=== PATIENT | female | born 1960 | race Caucasian/White ===

== ENCOUNTER 2016-12-11 08:24 | Emergency (ER) | payer MEDICAID ==
[~2016-12-11] VITALS: Ht 175.3 cm; Wt 75.0 kg
[~2016-12-11 08:24] MED LIST: BUPR150XL PO; DOLO10TA PO; GABA600T PO; HYDR25TA5 PO; IBUP800T23 PO; LISI-515 PO; LOVA40TA PO; METF1000 PO; ONETTES4; SERO50TA PO; WALKER WHEELS/F1 MIS
[2016-12-11 08:25] VITALS: BP 101/59; PULSE 78; RESP 16; TEMP 98.2; O2SAT 99
[2016-12-11] MEDS ORDERED: CLIN1CAP5 PO (08:56)
[2016-12-11] MEDS ORDERED: IBUP-232 PO (08:56)
--- NOTE | 2016-12-11 08:56 | PD ---
HPI Chief Complaint: Fall Time Seen by Provider: 08:50 Travel History International Travel<30 days: No Contact w/Intl Traveler<30days: No Traveled to known affect area: No History of Present Illness HPI 56-year-old female presents to the emergency Department with complaint of right foot and right ankle pain and swelling after getting off an MRI table on Monday and her ankle giving out and she fell. She denies hitting her head or lost consciousness. Denies neck pain or back pain. Has been ambulatory on the affected extremity with support from her walker, which she has been using for the past year secondary to knee pain. Denies fever, vomiting. Reports paresthesias in the affected foot. Denies loss of sensation to the affected extremity. Denies anticoagulants. No known allergies. Has no other medical complaints. No modifying factors or associated signs and symptoms. PFSH Past Medical History Arthritis: Yes Cancer: No Cardiovascular Problems: Yes Diabetes: Yes Diminished Hearing: No Genitourinary: No Hypertension: Yes Musculoskeletal: Yes Neurologic: No Psychiatric: Yes Respiratory: Yes Para: 2 Past Surgical History Gynecologic Surgery: Yes Social History Alcohol Use: Yes (OCCASSIONAL) Tobacco Use: Yes (1/2 PPD) Substance Use: No Allergies-Medications (Allergen,Severity, Reaction): Coded Allergies: No Known Allergies (Unverified , 08/31/16) Reported Meds & Prescriptions Reported Meds & Active Scripts Active Lortab (Hydrocodone-Acetaminophen) 5-325 Mg Tab 1-2 Tab PO Q6H PRN Lisinopril 20 Mg Tab 20 Mg PO DAILY Metformin (Metformin HCl) 1,000 Mg Tab 1,000 Mg PO BIDPC With meals Hydrochlorothiazide 25 Mg Tab 25 Mg PO DAILY Gabapentin 600 Mg Tab 600 Mg PO TID Lovastatin 40 Mg Tab 40 Mg PO DAILY Ibuprofen 800 Mg Tab 800 Mg PO Q8H PRN Onetouch Ultra Test Strips (Blood Glucose Test Strips) 1 Ashely Ashely 1 Strip .ROUTE DIRECTED Dolophine (Methadone HCl) 10 Mg Tab 70 Mg PO DAILY Walker with Front Wheels (Device) 1 Mis Mis 1 Ea .ROUTE DIRECTED Reported Seroquel (Quetiapine Fumarate) 50 Mg Tab 50 Mg PO HS Wellbutrin Xl 24 HR (Bupropion HCl) 150 Mg Tab 150 Mg PO DAILY Review of Systems Except as stated in HPI: all other systems reviewed are Neg Physical Exam Narrative GENERAL: Well-nourished, well-developed female patient, in no acute distress; afebrile, nontoxic-appearing SKIN: Warm and dry. HEAD: Atraumatic. Normocephalic. EYES: Pupils equal and round. No scleral icterus. No injection or drainage. ENT: Mucosa pink and moist. Airway patent. NECK: Trachea midline. CARDIOVASCULAR: Regular rate. RESPIRATORY: No accessory muscle use. GASTROINTESTINAL: Rounded. MUSCULOSKELETAL: Right ankle with tenderness on palpation to the lateral and medial malleolar zone; with edema; with mild erythema and warmth to touch up to the mid goetz, and with warmth to touch. Right foot is edematous and with ecchymosis noted to the dorsal aspect just below some of the toes; sensory intact. Right lower extremity is supple and non-tense with 1+ pedal pulse; erythema and edema noted to the anterior goetz. No open wounds noted. No obvious deformities. No clubbing. No cyanosis. NEUROLOGICAL: Awake and alert. Oriented 3. No obvious cranial nerve deficits. Motor grossly within normal limits. Normal speech. PSYCHIATRIC: Appropriate mood and affect; insight and judgment normal. Data Data Last Documented VS Vital Signs Date Time Temp Pulse Resp B/P Pulse Ox O2 Delivery O2 Flow Rate FiO2 12/11/16 08:25 98.2 78 16 101/59 99 Orders Ankle, Complete ([id number]) (12/11/16 08:49) Foot, Complete ([id number]) (12/11/16 08:49) Ice/Cold Pack (12/11/16 08:49) Crutches (12/11/16 09:44) Splint Or Brace Apply/Monitor (12/11/16 09:44) MDM Medical Decision Making Medical Screen Exam Complete: Yes Emergency Medical Condition: Yes Medical Record Reviewed: Yes Differential Diagnosis Ankle fracture, foot fracture, cellulitis Narrative Course 56-year-old female with right foot and ankle injury. There is an area to the anterior goetz that appears consistent with possible cellulitis. Patient is afebrile and nontoxic-appearing. Right foot and ankle x-ray ordered. Icepack ordered. 0950: Right ankle and foot x-ray concludes: Last 24 hours Impressions Foot X-Ray 12/11/16 0874 Signed Impressions: Service Date/Time: Sunday, December 11, 2016 09:00 - CONCLUSION: No acute right foot abnormality is identified. There is a partially visualized distal fibula fracture. Ze Torres MD Ankle X-Ray 12/11/16 0849 Signed Impressions: Service Date/Time: Sunday, December 11, 2016 09:05 - CONCLUSION: Minimally displaced distal fibula metaphyseal fracture. Ze Torres MD Posterior short leg splint ordered. Crutches provided for support. Instructed patient to follow up with orthopedics. Crutches provided for home. Wheelchair prescribed for home. Ibuprofen, Lortab prescribed for home. I will prescribe clindamycin secondary to the erythema and warmth to the anterior goetz and concern of possible cellulitis. Instructed patient to follow up with orthopedics. Patient verbalizes understanding and agreement with treatment plan. Patient is medically cleared and stable for discharge. Discussed reasons to return to the emergency department. Instructed patient to follow up with primary care provider. Patient agrees with treatment plan. The patients vital signs are stable and the patient is stable for outpatient follow-up and treatment. Patient discharged home, stable and in no acute distress. Diagnosis Primary Impression: Closed right ankle fracture Qualified Code: S82.891A - Closed right ankle fracture, initial encounter Referrals: Orthopedist Primary Care Physician Patient Instructions: Ankle Fracture (ED), Crutch Instructions (ED), General Instructions, Splint Care (ED) Departure Forms: Tests/Procedures, Work Release Special Instructions: May return to work when cleared by orthopedic Additional Instructions: Tylenol or ibuprofen as directed and as needed for pain and inflammation Rest, ice, compress, and elevate extremity to decrease pain and inflammation Splint for support; do not remove splint until cleared by orthopedic Crutches, wheelchair for support Avoid aggravating activity; increase activity as tolerated Follow-up with primary care provider Return to the emergency department immediately with worsening of symptoms Med/Other Pt SpecificInfo: Prescription(s) given Scripts Wheelchair 1 Mis Mis #1 EA .ROUTE DIRECTED Ref 0 Prov:Keyana Jones 12/11/16 Hydrocodone-Acetaminophen (Lortab)5-325 Mg Tab1-2 Tab PO Q6H PRN (PAIN GREATER THAN 5) #20 TAB Ref 0 Prov:Niru Bird MD 12/11/16 Disposition: 01 DISCHARGE HOME Condition: Stable Keyana Jones December 11, 2016 08:56
--- NOTE | 2016-12-11 09:21 | RADRPT ---
EXAM DATE/TIME: 12/11/2016 09:05 [facility] COMPARISON: No previous studies available for comparison. INDICATIONS : Right ankle pain post fall five days ago. MEDICAL HISTORY : None. SURGICAL HISTORY : None. ENCOUNTER: Initial ACUITY: 4 - 6 days PAIN SCORE: 8/10 LOCATION: Right ankle. FINDINGS: 3 views of the right ankle demonstrate an oblique minimally displaced fracture of the distal fibular metaphysis. The distal fragment is displaced laterally by approximately 2 mm. The medial fracture rikki e extends to the level of the syndesmosis. Ankle mortise is intact. There is lateral ankle soft tissu e swelling. CONCLUSION: Minimally displaced distal fibula metaphyseal fracture. Ze Torres MD on December 11, 2016 at 9:18 Board Certified Radiologist. This report was verified electronically.
--- NOTE | 2016-12-11 09:23 | RADRPT ---
EXAM DATE/TIME: 12/11/2016 09:00 [facility] COMPARISON: No previous studies available for comparison. INDICATIONS : Right foot pain post fall five days ago. MEDICAL HISTORY : None. SURGICAL HISTORY : None. ENCOUNTER: Initial ACUITY: 4 - 6 days PAIN SCORE: 8/10 LOCATION: Right foot. FINDINGS: Three views of the right foot demonstrate no fracture or dislocation. There is a partially visualized distal fibula fracture. The Lisfranc joint appears intact. Mineralization is mildly decreased and th ere is no significant arthropathy. No soft tissue abnormality or radiopaque foreign body is identifie d. CONCLUSION: No acute right foot abnormality is identified. There is a partially visualized distal fibula fracture . Ze Torres MD on December 11, 2016 at 9:20 Board Certified Radiologist. This report was verified electronically.
[2016-12-11] MEDS ORDERED: HYDR-3533 PO (09:45)
[2016-12-11] MEDS ORDERED: WHEEMIS3 (10:47)
[2016-12-14] MEDS ORDERED: LOVA40TA PO (11:49)
[2016-12-14] MEDS ORDERED: METF1000 PO (11:50)
[2016-12-14] MEDS ORDERED: HYDR25TA5 PO (11:50)
[2016-12-14] MEDS ORDERED: IBUP800T23 PO (11:50)
[2017-01-10] MEDS ORDERED: GABA600T PO (14:24)
[2017-01-11] MEDS ORDERED: GEMF600T PO (14:55)
[2017-01-11] MEDS ORDERED: METF1000 PO (14:57)
[2017-01-11] MEDS ORDERED: IBUP800T23 PO (14:57)
[2017-01-11] MEDS ORDERED: HYDR25TA5 PO (14:57)
[2017-01-11] MEDS ORDERED: LISI-515 PO (14:57)
== END 2016-12-11 11:00 | disposition home or self-care (01) ==
LOC: NEPK 08:24
DX: S82.891A Other fracture of right lower leg, initial encounter for closed fracture (principal); W08.XXXA Fall from other furniture, initial encounter
CPT/HCPCS: 73610; 73630; 99284

== ENCOUNTER 2017-02-18 17:47 | Emergency (ER) | payer MEDICAID ==
[~2017-02-18] VITALS: Ht 172.7 cm; Wt 80.0 kg
[~2017-02-18 17:47] MED LIST changes: +GEMF600T PO; +HYDR-3533 PO; -LOVA40TA PO; +WHEEMIS3; +[UNRECOGNIZED DRUG - CODE] PO
[2017-02-18 17:55] VITALS: BP 165/91; PULSE 70; RESP 19; TEMP 98.6; O2SAT 99
[2017-02-18] MEDS ORDERED: SODIUM CHLOR 0.9% 1000 ML INJ 1,000 ML IV SCH (17:58)
[2017-02-18 18:11] VITALS: O2SAT 97
--- NOTE | 2017-02-18 18:24 | PD ---
HPI Chief Complaint: Flank/Kidney Pain Time Seen by Provider: 18:19 Travel History International Travel<30 days: No Contact w/Intl Traveler<30days: No Traveled to known affect area: No History of Present Illness HPI 56-year-old female that presents to the ED for evaluation of left-sided flank pain. Patient reports that she's had this flank pain for the past 4 days. Per patient she has developed some polyuria but no dysuria. She states that she's never had this pain before. She has a chronic history of a fracture to her right ankle which is currently in a cast. Per patient's this happened 3 months ago. She follow with orthopedic surgeon. She also reports that she has an abnormality to her thoracic spine and she apparently had an MRI just yesterday ordered by her neurologist Dr. Gilmore. Per patient she's had these MRI as a follow -up. And apparently somebody left a message yesterday and told her that she should come to the hospital. She does not know what the results were. She had the MRI done at [place]. Per patient the pain comes and goes. She also states that she's been having some numbness in tilling to her lower legs and the pain on the back is new for the past 4 days. The numbness and pain to the legs have been ongoing for almost a year now. This is not new. She denies any falls. She states that she had recent blood work that shows she was anemic. She denies any problems with her bowel movements or urine. No vaginal discharge. She has had a hysterectomy. She has no allergies to medication. She does take a lot of Tylenol for the pain as she does have a history of substance abuse and takes methadone. PFSH Past Medical History Arthritis: Yes Cancer: No Cardiovascular Problems: Yes High Cholesterol: Yes Diabetes: Yes Patient Takes Glucophage: Yes Diminished Hearing: No Gastrointestinal Disorders: Yes Genitourinary: No Hypertension: Yes Musculoskeletal: Yes (fx right foot) Neurologic: No Psychiatric: Yes Respiratory: Yes ?: Not Menopausal: Yes Para: 2 Ovarian Cysts: Yes Past Surgical History Gynecologic Surgery: Yes Other Surgery: Yes Social History Alcohol Use: Yes (rare) Tobacco Use: Yes (1/2 ppd) Substance Use: No Allergies-Medications (Allergen,Severity, Reaction): Coded Allergies: No Known Allergies (Unverified , 02/07/17) Reported Meds & Prescriptions Reported Meds & Active Scripts Active Cipro (Ciprofloxacin HCl) 500 Mg Tab 500 Mg PO BID [address] (Diclofenac Sodium) 75 Mg Tabdr 75 Mg PO BID PRN Lortab (Hydrocodone-Acetaminophen) 5-325 Mg Tab 1 Tab PO Q6H PRN Fergon (Ferrous Gluconate) 240 Mg Tablet 1 Tab PO DAILY Ibuprofen 800 Mg Tab 800 Mg PO Q8H PRN Metformin (Metformin HCl) 1,000 Mg Tab 1,000 Mg PO BIDPC With meals Hydrochlorothiazide 25 Mg Tab 25 Mg PO DAILY Lisinopril 20 Mg Tab 20 Mg PO DAILY Gemfibrozil 600 Mg Tab 600 Mg PO BIDAC Take 30 minutes prior to breakfast and dinner. Gabapentin 600 Mg Tab 600 Mg PO TID Wheelchair (Device) 1 Mis Mis 1 Ea .ROUTE DIRECTED Onetouch Ultra Test Strips (Blood Glucose Test Strips) 1 Ashely Ashely 1 Strip .ROUTE DIRECTED Walker with Front Wheels (Device) 1 Mis Mis 1 Ea .ROUTE DIRECTED Reported Zoloft (Sertraline HCl) 100 Mg Tab 200 Mg PO DAILY Methadone (Methadone HCl) 10 Mg Tab 100 Mg PO DAILY Seroquel (Quetiapine Fumarate) 50 Mg Tab 50 Mg PO HS Wellbutrin Xl 24 HR (Bupropion HCl) 150 Mg Tab 150 Mg PO DAILY Review of Systems Except as stated in HPI: all other systems reviewed are Neg Physical Exam Narrative GENERAL: SKIN: Warm and dry. HEAD: Atraumatic. Normocephalic. EYES: Pupils equal and round. No scleral icterus. No injection or drainage. ENT: No nasal bleeding or discharge. Mucous membranes pink and moist. Tongue is midline. No uvula deviation. NECK: Trachea midline. No JVD. CARDIOVASCULAR: Regular rate and rhythm. No murmurs, S3, S4. RESPIRATORY: No accessory muscle use. Clear to auscultation. Breath sounds equal bilaterally. GASTROINTESTINAL: Abdomen soft, non-tender, nondistended. Hepatic and splenic margins not palpable. MUSCULOSKELETAL: Extremities without clubbing, cyanosis, or edema. No obvious deformities. Some CVA tenderness on the left. Full range of motion of the upper and lower extremities bilaterally. Patient does have a cast to the right leg from previous injury. Sensation intact bilaterally. Full range of motion of the toes. Pain is not reproducible with touch on the lumbar, thoracic, cervical spine tenderness to palpation. NEUROLOGICAL: Awake and alert. No obvious cranial nerve deficits. Motor grossly within normal limits. Five out of 5 muscle strength in the arms and legs. Normal speech. PSYCHIATRIC: Appropriate mood and affect; insight and judgment normal. Data Data Last Documented VS Vital Signs Date Time Temp Pulse Resp B/P Pulse Ox O2 Delivery O2 Flow Rate FiO2 02/18/17 21:27 80 16 110/59 99 Room Air 02/18/17 17:55 98.6 Orders Complete Blood Count With Diff (02/18/17 17:58) Comprehensive Metabolic Panel (02/18/17 17:58) Prothrombin Time / Inr (Pt) (02/18/17 17:58) Act Partial Throm Time (Ptt) (02/18/17 17:58) Urinalysis - C+S If Indicated (02/18/17 17:58) Ct Abd/Pel W/O Iv Contrast (02/18/17 17:58) Iv Access Insert/Monitor (02/18/17 17:58) Ecg Monitoring (02/18/17 17:58) Oximetry (02/18/17 17:58) Sodium Chlor 0.9% 1000 Ml Inj (Ns 1000 M (02/18/17 17:58) Ketorolac Inj (Toradol Inj) (02/18/17 19:00) Morphine Inj (Morphine Inj) (02/18/17 19:00) Ondansetron Inj (Zofran Inj) (02/18/17 19:00) Mri L Spine W&W/O Contrast (02/18/17 ) Mri T Spine W & W/O Contrast (02/18/17 ) Gadodiamide Pf Inj (Omniscan Pf Inj) (02/18/17 20:29) Cath For Specimen (02/18/17 21:01) Splint Or Brace Apply/Monitor (02/18/17 21:11) Cath For Specimen (02/18/17 21:11) Morphine Inj (Morphine Inj) (02/18/17 21:30) Mandatory Outpatient Referral (02/18/17 21:43) Labs Laboratory Tests Test 02/18/17 02/18/17 18:10 19:15 White Blood Count 15.1 TH/MM3 Red Blood Count 3.60 MIL/MM3 Hemoglobin 10.9 GM/DL Hematocrit 33.0 % Mean Corpuscular Volume 91.6 FL Mean Corpuscular Hemoglobin 30.2 PG Mean Corpuscular Hemoglobin 33.0 % Concent Red Cell Distribution Width 16.1 % Platelet Count 306 TH/MM3 Mean Platelet Volume 9.1 FL Neutrophils (%) (Auto) 77.1 % Lymphocytes (%) (Auto) 14.7 % Monocytes (%) (Auto) 7.2 % Eosinophils (%) (Auto) 0.8 % Basophils (%) (Auto) 0.2 % Neutrophils # (Auto) 11.7 TH/MM3 Lymphocytes # (Auto) 2.2 TH/MM3 Monocytes # (Auto) 1.1 TH/MM3 Eosinophils # (Auto) 0.1 TH/MM3 Basophils # (Auto) 0.0 TH/MM3 CBC Comment DIFF FINAL Differential Comment Prothrombin Time 11.1 SEC Prothromb Time International 1.0 RATIO Ratio Activated Partial 22.7 SEC Thromboplast Time Sodium Level 141 MEQ/L Potassium Level 4.4 MEQ/L Chloride Level 114 MEQ/L Carbon Dioxide Level 18.6 MEQ/L Anion Gap 8 MEQ/L Blood Urea Nitrogen 27 MG/DL Creatinine 0.82 MG/DL Estimat Glomerular Filtration 73 ML/MIN Rate Random Glucose 96 MG/DL Calcium Level 8.2 MG/DL Total Bilirubin 0.2 MG/DL Aspartate Amino Transf 14 U/L (AST/SGOT) Alanine Aminotransferase 15 U/L (ALT/SGPT) Alkaline Phosphatase 75 U/L Total Protein 7.0 GM/DL Albumin 3.1 GM/DL MDM Medical Decision Making Medical Screen Exam Complete: Yes Emergency Medical Condition: Yes Medical Record Reviewed: Yes Interpretation(s) CBC & BMP Diagram 02/18/17 18:10 02/18/17 19:15 Last Impressions Abdomen/Pelvis CT 02/18/17 1758 Signed Impressions: Service Date/Time: Saturday, February 18, 2017 18:36 - CONCLUSION: 1. No acute findings. Specifically no renal calculi or obstructive uropathy. 2. Mild constipation. Colonic diverticulosis. 3. Small hiatal hernia. 4. Mild superior endplate compression fracture of L3 which is probably subacute. Artie Groves MD Thoracic Spine MRI 02/18/17 0000 Signed Impressions: Service Date/Time: Saturday, February 18, 2017 20:05 - CONCLUSION: 1. Postcontrast no abnormal enhancing lesions are identified within the cord or within the syrinx. The syrinx is not significantly changed in size compared with yesterday. At T6 and T7 level there also appears to be extrinsic compression on the cord from surrounding cystic changes of uncertain etiology. Artie Groves MD Lumbar Spine MRI 02/18/17 0000 Signed Impressions: Service Date/Time: Monday, February 18, 2017 20:05 - CONCLUSION: 1. Syrinx ends at T11 without abnormal enhancement seen. See thoracic spine MRI report. 2. Mild superior endplate compression fracture at L3. Mild enhancement around degenerative disc disease and facet arthropathy without significant central canal stenosis. Mild lateral recess encroachment. Disc bulges at every level in the lumbar spine. Artie Groves MD Differential Diagnosis Musculoskeletal pain versus thoracic injury versus acute on chronic pain versus radiculopathy versus kidney stone versus pyelonephritis versus urethritis versus cystitis Narrative Course 56-year-old female that presents to the ED for evaluation of left flank pain. Patient was properly examined and was found to have signs and symptoms consistent with appears to be left flank pain. Patient was properly examined and was found to have signs and symptoms which appear to be more consistent with kidney disease done than thoracic in nature. I did spoke with my attending Dr. De Leon about this who recommended that we do evaluation for kidney disease. I did review the MRI in our PACS system that did show that she has a large syrinx extending nearly the entire length of the thoracic cord. This begins at the inferior endplate of T2 and extends down to the inferior endplate of T11. There is significantly more cephalad extent of this syrinx on today's exam and was admitted on the previous study. There is expansion of the central canal however, there does appear to be expansion of cord tissue as well. Labs and imaging were done. Labs do not show any sign of acute kidney stone. And so had my attending evaluated the patient she recommends MRIs. MRSA cultures were done and showed what appears to be new L3 compression fracture as well as syrinx that appears to have no change since yesterday. Case was discussed in my attending who recommends consult with neurosurgery. I spoke with Dr. Morgan over the phone who was made aware of findings on MRIs done here as well as physical exam findings and recommends putting patient on a splint and follow-up outpatient. Nothing to do surgically at this time. Urine showed Diagnosis Primary Impression: Compression fracture of L3 lumbar vertebra Qualified Code: S32.030A - Closed compression fracture of third lumbar vertebra, initial encounter Additional Impression: Flank pain, acute Referrals: Dae Morgan MD Patient Instructions: General Instructions, Narcotic given in the ED Additional Instructions: Take medications as prescribed. Follow-up with PCP. See ED for any worsening symptoms. Do not drink or drive while taking pain medication. Apply ice or heat as needed for pain Med/Other Pt SpecificInfo: Prescription(s) given Scripts Ciprofloxacin (Cipro)500 Mg Edo675 Mg PO BID 7 Days Ref 0 Prov:Bridger De Leon MD 02/18/[address] 75 Mg Tabdr75 Mg PO BID PRN (PAIN SCALE 1 TO 10) #20 TAB Prov:Bridger De Leon MD 02/18/17 Hydrocodone-Acetaminophen (Lortab)5-325 Mg Tab1 Tab PO Q6H PRN (PAIN) #20 TAB Prov:Bridger De Leon MD 02/18/17 Disposition: 01 DISCHARGE HOME Condition: Stable Sandeep Rangel Feb 18, 2017 18:24
[2017-02-18 18:34] LABS: AUTOMATED NEUTROPHIL # 11.7 TH/MM3 (1.8-7.7); BASOPHIL % 0.2 % (0.0-2.0); EOSINOPHIL # 0.1 TH/MM3 (0-0.4); EOSINOPHIL % 0.8 % (0.0-4.0); HEMO FLAGS DIFF FINAL; LYMPH % 14.7 % (9.0-44.0); LYMPHOCYTE # 2.2 TH/MM3 (1.0-4.8); MEAN CELL VOLUME 91.6 FL (80.0-100.0); MEAN CORPUSCULAR HEMOGLOBIN 30.2 PG (27.0-34.0); MONO % 7.2 % (0.0-8.0); NEUT % 77.1 % (16.0-70.0); PLATELET COUNT 306 TH/MM3 (150-450); RED CELL DISTRIBUTION WIDTH 16.1 % (11.6-17.2); WHITE BLOOD COUNT 15.1 TH/MM3 (4.0-11.0)
[2017-02-18 18:51] LABS: APTT (PATIENT) 22.7 SEC (24.3-30.1); PROTHROMBIN TIME - PATIENT 11.1 SEC (9.8-11.6)
[2017-02-18] MEDS ORDERED: MORPHINE SULFATE 4 MG/ML INJ IV PUSH ONE ×2 (19:00→21:30)
[2017-02-18] MEDS ORDERED: KETOROLAC TROMETHAMINE 30 MG/ML (IVP) VIAL IV PUSH ONE (19:00)
[2017-02-18] MEDS ORDERED: ONDANSETRON HCL 4 MG/2 ML VIAL IV PUSH ONE (19:00)
--- NOTE | 2017-02-18 19:01 | RADRPT ---
EXAM DATE/TIME: 02/18/2017 18:36 [facility] COMPARISON: No previous studies available for comparison. INDICATIONS : Left flank pain for four days. ORAL CONTRAST: No oral contrast ingested. RADIATION DOSE: 8.48 CTDIvol (mGy) MEDICAL HISTORY : Cardiovascular disease. Hypertension. SURGICAL HISTORY : Hysterectomy. ENCOUNTER: Initial ACUITY: 1 day PAIN SCALE: 5/10 LOCATION: Left flank TECHNIQUE: Volumetric scanning of the abdomen and pelvis was performed. Using automated exposure control and ad justment of the mA and/or kV according to patient size, radiation dose was kept as low as reasonably achievable to obtain optimal diagnostic quality images. DICOM format image data is available electro nically for review and comparison. FINDINGS: Lung bases are clear. No acute findings in the liver, spleen, adrenals, kidneys or pancreas. Small hi atal hernia. No calcified gallstones. No constipation. No free fluid. No bowel obstruction. No adenopathy. Colonic diverticulosis. Mild superior endplate co mpression fracture of L3 with minimal retropulsion, probably subacute. CONCLUSION: 1. No acute findings. Specifically no renal calculi or obstructive uropathy. 2. Mild constipation. Colonic diverticulosis. 3. Small hiatal hernia. 4. Mild superior endplate compression fracture of L3 which is probably subacute. Artie Groves MD on February 18, 2017 at 18:57 Board Certified Radiologist. This report was verified electronically.
[2017-02-18 19:52] LABS: ALT (GPT) 15 U/L (10-53); ANION GAP 8 MEQ/L (5-15); AST (GOT) 14 U/L (15-37); BICARBONATE 18.6 MEQ/L (21.0-32.0); BLOOD UREA NITROGEN 27 MG/DL (7-18); CHLORIDE 114 MEQ/L (98-107); GLOMERULAR FILTRATION RATE 73 ML/MIN (>89); POTASSIUM 4.4 MEQ/L (3.5-5.1); SODIUM (NA) 141 MEQ/L (136-145)
[2017-02-18 19:55] LABS: ALKALINE PHOSPHATASE 75 U/L (45-117); TOTAL BILIRUBIN ADULT 0.2 MG/DL (0.2-1.0)
[2017-02-18] MEDS ORDERED: GADODIAMIDE PF 287 MG/ML 10 ML VIAL (for RAD MRI) IV ONE (20:29)
--- NOTE | 2017-02-18 20:47 | RADRPT ---
EXAM DATE/TIME: 02/18/2017 20:05 [facility] COMPARISON: February 17, 2017 at [facility]. INDICATIONS : Syringomyelia. Syrinx on prior MRI, increasing pain. CONTRAST: 16 cc Omniscan (gadodiamide) IV MEDICAL HISTORY : Hypertension. Diabetes mellitus type 2. SURGICAL HISTORY : Laser to left ovary. Lt arm, right hand infection. ENCOUNTER: [facility] ACUITY: 4-6 months PAIN SCORE: 4/10 LOCATION: [facility] TECHNIQUE: Multiplanar multisequence MRI of the thoracic spine was performed. FINDINGS: Correlation is made with MRI of the thoracic spine performed yesterday at [facility]. There i s a syringomyelia which extends from T2 to T11. On the postcontrast studies there is no abnormal enha ncement within the syrinx or spinal cord. At the level of T6 and T7 and there is some cystic changes around the cord resulting in extrinsic compression of the cord that is similar to the prior studies f rom yesterday and from December 07, 2016. Normal alignment of the spine. CONCLUSION: 1. Postcontrast no abnormal enhancing lesions are identified within the cord or within the syrinx. Th e syrinx is not significantly changed in size compared with yesterday. At T6 and T7 level there also appears to be extrinsic compression on the cord from surrounding cystic changes of uncertain etiology . Artie Groves MD on February 18, 2017 at 20:34 Board Certified Radiologist. This report was verified electronically.
--- NOTE | 2017-02-18 20:53 | RADRPT ---
EXAM DATE/TIME: 02/18/2017 20:05 [facility] COMPARISON: No previous studies available for comparison. [facility], February 17, 2017 INDICATIONS : Pain. Syrinx on prior MRI, increasing pain. CONTRAST: 16 cc Omniscan (gadodiamide) IV MEDICAL HISTORY : Diabetes mellitus type 2. Hypertension. SURGICAL HISTORY : Laser to left ovary. Lt arm, right hand infection. ENCOUNTER: Subsequent ACUITY: 4-6 months PAIN SCORE: 4/10 LOCATION: [facility] TECHNIQUE: Multiplanar multisequence MRI of the lumbar spine was performed with and without contrast. FINDINGS: Correlation is made with thoracic spine MRI performed yesterday [employer]. Postcontrast images revea l some linear signal abnormality at the superior endplate of L3 is characteristic of a compression fr acture with mild end plate depression. There is some enhancement around degenerative disc disease. Sy rinx ends at approximately T11. See thoracic spine MRI report. There is moderate degenerative disc disease in the lumbar spine. No significant central canal stenosi s. There is mild foraminal encroachment bilaterally from L3-L5 worse on the right. No spondylolisthes is. Mild posterior disc bulges or protrusions at L2-3-4-5. Facet arthropathy. CONCLUSION: 1. Syrinx ends at T11 without abnormal enhancement seen. See thoracic spine MRI report. 2. Mild superior endplate compression fracture at L3. Mild enhancement around degenerative disc disease and facet arthropathy without significant central c anal stenosis. Mild lateral recess encroachment. Disc bulges at every level in the lumbar spine. Artie Groves MD on February 18, 2017 at 20:46 Board Certified Radiologist. This report was verified electronically.
[2017-02-18] MEDS ORDERED: METH10TA PO (21:07)
[2017-02-18] MEDS ORDERED: ZOLO100T PO (21:08)
[2017-02-18 21:27] VITALS: BP 110/59; PULSE 80; RESP 16; O2SAT 99
[2017-02-18] MEDS ORDERED: HYDR-3533 PO (21:34)
[2017-02-18] MEDS ORDERED: CIPR-9 PO (21:34)
[2017-02-18] MEDS ORDERED: DICL75TA PO (21:34)
[2017-02-18 22:38] LABS: BACTERIA, URINE MANY /hpf; BLOOD, URINE NEG (NEG); GLUCOSE,URINE NEG (NEG); HYALINE CAST, URINE 2 /lpf (RARE); KETONE, URINE NEG (NEG); MUCUS URINE FEW /lpf (OCC); SQUAMOUS EPITHELIAL CELL URINE <1 /hpf (0-5); URINE COLOR YELLOW (YELLW/STRAW)
[2017-02-18 22:39] LABS: COMMENT (UR) CATH-CULTURE IND; CULTURE IF INDICATED CATH CULTURE IND; NITRITE,URINE POS (NEG)
== END 2017-02-18 23:48 | disposition home or self-care (01) ==
LOC: NEPC 17:47
DX: S32.030A Wedge compression fracture of third lumbar vertebra, initial encounter for closed fracture (principal); M19.90 Unspecified osteoarthritis, unspecified site; I10 Essential (primary) hypertension; E11.9 Type 2 diabetes mellitus without complications; Z79.84 Long term (current) use of oral hypoglycemic drugs; E78.00 Pure hypercholesterolemia, unspecified; F17.290 Nicotine dependence, other tobacco product, uncomplicated
CPT/HCPCS: 72157; 72158; 74176; 80053; 81001; 85025; 85610; 85730; 87077; 87086; 87186; 96374; 96375; 96376; 99285; A9579; J1885; J2270; J2405; J7030; L0200; L0484

== ENCOUNTER 2017-02-27 17:51 | Emergency (ER) | payer MEDICAID ==
[~2017-02-27] VITALS: Ht 172.7 cm; Wt 75.0 kg
[~2017-02-27 17:51] MED LIST changes: +CIPR-9 PO; +DICL75TA PO; -DOLO10TA PO; +METH10TA PO; +ZOLO100T PO
[2017-02-27 18:01] VITALS: BP 159/98; PULSE 117; RESP 20; TEMP 99.3; O2SAT 96
--- NOTE | 2017-02-27 18:14 | PD ---
Physical Exam Time Seen by Provider: 18:11 Narrative 56yo F, arrived via [facility], c/o LLQ abd pain and left low back pain started 10 days ago. Denies fever, N, V, D, C. Denies difficulty urinating or defecating. Denies dysuria, hematuria. Patient seen in triage. VS reviewed. Awaiting bed placement. Data Data Last Documented VS Vital Signs Date Time Temp Pulse Resp B/P Pulse Ox O2 Delivery O2 Flow Rate FiO2 02/27/17 18:01 99.3 117 20 159/98 96 Room Air MDM Supervised Visit with JOHN: Keyana Vallejo Feb 27, 2017 18:14
--- NOTE | 2017-02-27 21:38 | PD ---
HPI Chief Complaint: Back/ Neck Pain or Injury Time Seen by Provider: 21:22 Travel History International Travel<30 days: No Contact w/Intl Traveler<30days: No Traveled to known affect area: No History of Present Illness HPI Patient's 56-year-old female presents emergency department for evaluation of low back pain. Patient is been evaluated in this emergency department recently with MRI which did show a syrinx. She discussed with her "neurologist" Dr. Gilmore who instructed her to come to the emergency department. She was evaluated with an outpatient MRI and was recommended that she have one with contrast. This was done a few days ago as above. She states nothing is changed since then she just continues to have pain. She has not followed up with a neurosurgeon as instructed as an outpatient. She's also been diagnosed with a superior endplate fracture of L3 on the last MRI. She states she usually wears her TLSO brace but did not bring it with her to the hospital today. Denies any dysuria denies any saddle anesthesia denies any weakness but does have some pain when she walks. PFSH Past Medical History Arthritis: Yes Cancer: No Cardiovascular Problems: Yes High Cholesterol: Yes Diabetes: Yes Patient Takes Glucophage: Yes Diminished Hearing: No Gastrointestinal Disorders: Yes Genitourinary: No Hypertension: Yes Musculoskeletal: Yes (fx right foot) Neurologic: No Psychiatric: Yes Respiratory: Yes ?: Not Menopausal: Yes Para: 2 Ovarian Cysts: Yes Past Surgical History Gynecologic Surgery: Yes Other Surgery: Yes Social History Alcohol Use: Yes (rare) Tobacco Use: Yes (1/2 ppd) Substance Use: No Allergies-Medications (Allergen,Severity, Reaction): Coded Allergies: No Known Allergies (Unverified , 02/07/17) Reported Meds & Prescriptions Reported Meds & Active Scripts Active Ibuprofen 800 Mg Tab 800 Mg PO Q8H PRN Metformin (Metformin HCl) 1,000 Mg Tab 1,000 Mg PO BIDPC With meals Hydrochlorothiazide 25 Mg Tab 25 Mg PO DAILY Lisinopril 20 Mg Tab 20 Mg PO DAILY Gemfibrozil 600 Mg Tab 600 Mg PO BIDAC Take 30 minutes prior to breakfast and dinner. Gabapentin 600 Mg Tab 600 Mg PO TID Wheelchair (Device) 1 Mis Mis 1 Ea .ROUTE DIRECTED Onetouch Ultra Test Strips (Blood Glucose Test Strips) 1 Ashely Ashely 1 Strip .ROUTE DIRECTED Walker with Front Wheels (Device) 1 Mis Mis 1 Ea .ROUTE DIRECTED Reported Zoloft (Sertraline HCl) 100 Mg Tab 200 Mg PO DAILY Methadone (Methadone HCl) 10 Mg Tab 100 Mg PO DAILY Seroquel (Quetiapine Fumarate) 50 Mg Tab 50 Mg PO HS Wellbutrin Xl 24 HR (Bupropion HCl) 150 Mg Tab 150 Mg PO DAILY Review of Systems Except as stated in HPI: all other systems reviewed are Neg Physical Exam Narrative GENERAL: Well-nourished, well-developed patient. SKIN: Focused skin assessment warm/dry. HEAD: Normocephalic. EYES: No scleral icterus. No injection or drainage. NECK: Supple, trachea midline. No JVD or lymphadenopathy. CARDIOVASCULAR: Regular rate and rhythm without murmurs, gallops, or rubs. RESPIRATORY: Breath sounds equal bilaterally. No accessory muscle use. GASTROINTESTINAL: Abdomen soft, non-tender, nondistended. MUSCULOSKELETAL: No cyanosis, or edema. No midline CT or L-spine tenderness. 2 + bilateral equal pulses in all 4 extremity's, pulse motor and sensory intact distally in all 4 extremities. BACK: Nontender without obvious deformity. No CVA tenderness. Data Data Last Documented VS Vital Signs Date Time Temp Pulse Resp B/P Pulse Ox O2 Delivery O2 Flow Rate FiO2 02/27/17 18:01 99.3 117 20 159/98 96 Room Air Orders Oxycodone-Acetamin 5-325 Mg (Percocet (02/27/17 21:45) MDM Medical Decision Making Medical Screen Exam Complete: Yes Emergency Medical Condition: Yes Differential Diagnosis Acute on chronic abdominal pain, cauda equina is unlikely, L3 fracture. Narrative Course Review the patient's MRIs and they have been stable. Her symptoms have not progressed the point where she needs repeat MRI or any workup at this time. Discussed that she needs to follow up with Dr. Morgan outpatient as previously discussed with her. I believe she is stable for discharge. Percocet was given in emergency department, she is not driving home. Discussed need follow-up with Dr. Gilmore. Diagnosis Primary Impression: Acute exacerbation of chronic low back pain Referrals: Dae Morgan MD Additional Instructions: Follow-up with your physician Dr. Gilmore and Dr. Morgan by telephone. Disposition: 01 DISCHARGE HOME Condition: Stable Junaid Mann MD Feb 27, 2017 21:38
[2017-02-27] MEDS ORDERED: oxyCODONE/ACETAMINOPHEN 5 MG/325 MG TAB PO ONE (21:45)
[2017-03-23] MEDS ORDERED: LOVA40TA PO (15:24)
== END 2017-02-27 21:59 | disposition home or self-care (01) ==
LOC: NEPE 17:51
DX: M54.5 Low back pain (principal); G89.29 Other chronic pain
CPT/HCPCS: 99283

== ENCOUNTER 2017-06-14 10:07 | Inpatient (IN) | payer MEDICAID ==
[2017-06-14] VITALS (14 sets, daily range): BP systolic 82–146; BP diastolic 49–94; PULSE 70–130; RESP 12–24; TEMP 98.9–99.7; O2SAT 93–100
[~2017-06-14] VITALS: Ht 167.6 cm; Wt 75.0 kg
[~2017-06-14 10:07] MED LIST changes: -CIPR-9 PO; -DICL75TA PO; -HYDR-3533 PO; +IBUP1TAB7 PO; -IBUP800T23 PO; +LOVA40TA PO; -[UNRECOGNIZED DRUG - CODE] PO
[2017-06-14] MEDS ORDERED: SODIUM CHLOR 0.9% 1000 ML INJ 1,000 ML IV ONE ×5 (10:22→13:45)
[2017-06-14] MEDS ORDERED: HYDROmorphone HCL PF 1 MG/ML VIAL IV PUSH ONE (10:30)
[2017-06-14] MEDS ORDERED: LORazepam 2 MG/ML VIAL IV PUSH ONE (10:30)
--- NOTE | 2017-06-14 10:50 | RADRPT ---
EXAM DATE/TIME: 06/14/2017 10:33 [facility] COMPARISON: CHEST SINGLE AP, June 03, 2016, 12:21. INDICATIONS : Palpitations. MEDICAL HISTORY : Cardiovascular disease. Hypertension SURGICAL HISTORY : Hysterectomy. ENCOUNTER: Initial ACUITY: 1 day PAIN SCORE: 0/10 LOCATION: Bilateral chest FINDINGS: A single view of the chest demonstrates the lungs to be symmetrically aerated without evidence of mas s, infiltrate or effusion. The cardiomediastinal contours are unremarkable. Osseous structures are intact. CONCLUSION: No acute disease. Cullen Schmitz MD FACR on June 14, 2017 at 10:48 Board Certified Radiologist. This report was verified electronically.
--- NOTE | 2017-06-14 10:51 | PD ---
HPI Chief Complaint: Pain: Acute or Chronic Time Seen by Provider: 10:18 Travel History International Travel<30 days: No Contact w/Intl Traveler<30days: No Traveled to known affect area: No History of Present Illness HPI 56-year-old female patient with previous history of chronic back pains, L3 compression fracture according to medical history, hypothyroidism, presents to the ER today brought in by EMS complaining of back pains. She states that she has 9 out of 10 back pain and is writhing in bed. She is not able to answer some questions, but denies any fevers, incontinence, vomiting, diarrhea, chest pains, shortness of breath, or other symptoms. She does not have any pain management doctor. Per record, she has presented for similar symptoms in February as well. Patient had denied injuries. However, I do see an abrasion to the right knee. Modifying Factors: None Associated Signs & Symptoms: Back pains Risk Factors: History of chronic back pains PFSH Past Medical History Arthritis: Yes Cancer: No Cardiovascular Problems: Yes High Cholesterol: Yes Diabetes: Yes Patient Takes Glucophage: No Diminished Hearing: No Gastrointestinal Disorders: Yes Genitourinary: No Hypertension: Yes Musculoskeletal: Yes (fx right foot) Neurologic: No Psychiatric: Yes Respiratory: Yes ?: Not Menopausal: Yes Para: 2 Ovarian Cysts: Yes Past Surgical History Gynecologic Surgery: Yes Other Surgery: Yes Social History Alcohol Use: Yes (rare) Tobacco Use: Yes (1/2 ppd) Substance Use: Yes (IV DILAUDID ) Allergies-Medications (Allergen,Severity, Reaction): Coded Allergies: No Known Allergies (Unverified , 02/07/17) Reported Meds & Prescriptions Reported Meds & Active Scripts Active Lovastatin 40 Mg Tab 40 Mg PO DAILY Ibuprofen 800 Mg Tab 800 Mg PO Q8H PRN Hydrochlorothiazide 25 Mg Tab 25 Mg PO DAILY Lisinopril 20 Mg Tab 20 Mg PO DAILY Gemfibrozil 600 Mg Tab 600 Mg PO BIDAC Take 30 minutes prior to breakfast and dinner. Gabapentin 600 Mg Tab 600 Mg PO TID Reported Metformin (Metformin HCl) 500 Mg Tab 500 Mg PO BID Trazodone (Trazodone HCl) 150 Mg Tablet 150 Mg PO HS Robaxin (Methocarbamol) 500 Mg Tab 500 Mg PO QID PRN Clindamycin (Clindamycin HCl) 150 Mg Cap 450 Mg PO Q6H 10 Days Zoloft (Sertraline HCl) 100 Mg Tab 200 Mg PO DAILY Seroquel (Quetiapine Fumarate) 50 Mg Tab 50 Mg PO HS Wellbutrin Xl 24 HR (Bupropion HCl) 150 Mg Tab 150 Mg PO DAILY Review of Systems ROS Limitations: Altered Mental Status, Poor Historian Physical Exam Narrative GENERAL: Well-developed middle age white female patient who is in moderate distress, writhing in bed. Awake and oriented 3 however, only answering some questions and not others. Crying, anxious. SKIN: Focused skin assessment warm/dry. Skin abrasion to the right knee. HEAD: Atraumatic. Normocephalic. EYES: Pupils equal and round. No scleral icterus. No injection or drainage. ENT: No nasal bleeding or discharge. Mucous membranes pink and moist. NECK: Trachea midline. No JVD. CARDIOVASCULAR: Regular rate and rhythm. No murmur appreciated. RESPIRATORY: No accessory muscle use. Clear to auscultation. Breath sounds equal bilaterally. GASTROINTESTINAL: Abdomen soft, non-tender, nondistended. Hepatic and splenic margins not palpable. BACK: No CVA tenderness. No rash. Exam is somewhat limited due to patient anxiety, but appears to have some tenderness at the mid back area without obvious step-offs. MUSCULOSKELETAL: No obvious deformities. No clubbing. No cyanosis. No edema. NEUROLOGICAL: Awake and alert. No obvious cranial nerve deficits. Motor grossly within normal limits. Normal speech. PSYCHIATRIC: Very anxious mood and affect; insight and judgment poor. Data Data Last Documented VS Vital Signs Date Time Temp Pulse Resp B/P (MAP) Pulse Ox O2 Delivery O2 Flow Rate FiO2 06/14/17 10:31 99.7 126 24 144/94 (111) 94 Room Air Orders Orders Sepsis Workup Initiated (06/14/17 ) Electrocardiogram (06/14/17 10:22) Complete Blood Count With Diff (06/14/17 10:22) Comprehensive Metabolic Panel (06/14/17 10:22) Lactic Acid Sepsis Protocol (06/14/17 10:22) Urinalysis - C+S If Indicated (06/14/17 10:22) Blood Culture (06/14/17 10:22) Chest, Single Ap (06/14/17 10:22) Blood Glucose (06/14/17 10:22) Ecg Monitoring (06/14/17 10:22) Iv Access Insert/Monitor (06/14/17 10:22) Oximetry (06/14/17 10:22) Oxygen Administration (06/14/17 10:22) Hydromorphone Pf Inj (Dilaudid Pf Inj) (06/14/17 10:30) Sodium Chlor 0.9% 1000 Ml Inj (Ns 1000 M (06/14/17 10:22) Lorazepam Inj (Ativan Inj) (06/14/17 10:30) Ammonia (06/14/17 10:34) Mri T Spine W/O Contrast (06/14/17 10:34) Mri L Spine W/O Contrast (06/14/17 10:34) Lipase (06/14/17 10:43) Drug Screen, Random Urine (06/14/17 10:51) Alcohol (Ethanol) (06/14/17 10:51) Potassium, Serum (K) (06/14/17 14:09) Calcium Gluconate Inj (Calcium Gluconate (06/14/17 11:15) Insulin Human Regular Inj (Novolin R Inj (06/14/17 11:15) Dextrose 50% In Marcell (Vial) Inj (D50w (Vi (06/14/17 11:15) Sodium Bicarbonate 8.4% Inj (Sodium Bica (06/14/17 11:15) Ct Brain W/O Iv Contrast(Rout) (06/14/17 11:37) Admit To Inpatient (06/14/17 ) Code Status (06/14/17 11:44) Vital Signs (Adult) JARRET.Q1H (06/14/17 11:44) Activity Bed Rest (06/14/17 11:44) Urinary Catheter Management JARRET.Q8H (06/14/17 12:30) Diet Npo (06/14/17 Lunch) Sodium Chloride 0.9% Flush (Ns Flush) (06/14/17 11:45) Sodium Chloride 0.9% Flush (Ns Flush) (06/14/17 21:00) Pantoprazole Inj (Protonix Inj) (06/15/17 09:00) Albuterol-Ipratropium Neb (Duoneb Neb) (06/14/17 12:00) Complete Blood Count With Diff (06/15/17 04:00) Comprehensive Metabolic Panel (06/15/17 04:00) Lactic Acid (06/15/17 04:00) Arterial Blood Gas (Abg) (06/14/17 ) Consult Nephrology (06/14/17 ) Pediatric Audiologist / Telemetry JARRET.Q8H (06/14/17 11:44) Scd Bilateral/Knee High JARRET.BID (06/14/17 11:44) Abdirizak Bilateral/Knee High JARRET.QSHIFT (06/14/17 13:00) ^ Initiate Protocol (06/14/17 11:44) Instruction (06/14/17 11:44) [facility] [place] (06/14/17 11:45) Chlorhexidine 2% Cloth (Chlorhexidine 2% (06/15/17 04:00) Chlorhexidine 2% Cloth (Chlorhexidine 2% (06/14/17 11:45) [facility] Pcr Surveillance (06/14/17 11:44) Docusate Sodium-Senna (Kanchan-Colace) (06/14/17 21:00) Magnesium Hydroxide Liq (Milk Of Magnesi (06/14/17 11:45) Sennosides (Senokot) (06/14/17 11:45) Bisacodyl Supp (Dulcolax Supp) (06/14/17 11:45) Lactulose Liq (Lactulose Liq) (06/14/17 11:45) Inpatient Certification (06/14/17 ) Sodium Polysty Sulfate Liq (Kayexalate L (06/14/17 12:30) Basic Metabolic Panel (Bmp) (06/14/17 15:00) Us Kidney/Renal/Bladder (06/14/17 ) Ceftriaxone Inj (Rocephin Inj) (06/14/17 12:00) Piperacil-Tazo 4.5 Gm Premix (Zosyn 4.5 (06/14/17 11:47) Sodium Chlor 0.9% 1000 Ml Inj (Ns 1000 M (06/14/17 12:00) Sodium Chlor 0.9% 1000 Ml Inj (Ns 1000 M (06/14/17 12:00) Urinary Catheter Insert/Apply (06/14/17 11:47) Admit Order (Ed Use Only) (06/14/17 11:47) Labs Laboratory Tests Test 06/14/17 10:35 06/14/17 10:36 White Blood Count 17.8 TH/MM3 Red Blood Count 3.32 MIL/MM3 Hemoglobin 9.7 GM/DL Hematocrit 31.7 % Mean Corpuscular Volume 95.6 FL Mean Corpuscular Hemoglobin 29.4 PG Mean Corpuscular Hemoglobin Concent 30.7 % Red Cell Distribution Width 15.6 % Platelet Count 325 TH/MM3 Mean Platelet Volume 9.9 FL Neutrophils (%) (Auto) 80.7 % Lymphocytes (%) (Auto) 9.7 % Monocytes (%) (Auto) 9.2 % Eosinophils (%) (Auto) 0.2 % Basophils (%) (Auto) 0.2 % Neutrophils # (Auto) 14.3 TH/MM3 Lymphocytes # (Auto) 1.7 TH/MM3 Monocytes # (Auto) 1.6 TH/MM3 Eosinophils # (Auto) 0.0 TH/MM3 Basophils # (Auto) 0.0 TH/MM3 CBC Comment DIFF FINAL Differential Comment Blood Urea Nitrogen 70 MG/DL Creatinine 6.54 MG/DL Random Glucose 88 MG/DL Total Protein 8.6 GM/DL Albumin 3.7 GM/DL Calcium Level 7.8 MG/DL Alkaline Phosphatase 120 U/L Aspartate Amino Transf (AST/SGOT) 45 U/L Alanine Aminotransferase (ALT/SGPT) 19 U/L Total Bilirubin 0.3 MG/DL Sodium Level 135 MEQ/L Potassium Level 7.5 MEQ/L Chloride Level 109 MEQ/L Carbon Dioxide Level 10.6 MEQ/L Anion Gap 15 MEQ/L Estimat Glomerular Filtration Rate 7 ML/MIN Lactic Acid Level 1.6 mmol/L Lipase 50 U/L Ethyl Alcohol Level 3 MG/DL Ammonia 33 [facility] Medical Decision Making Medical Screen Exam Complete: Yes Emergency Medical Condition: Yes Medical Record Reviewed: Yes Interpretation(s) EKG shows sinus tachycardia at a rate of 120 bpm. No signs of acute ST-T changes. Laboratory Tests Test 06/14/17 10:35 06/14/17 10:36 White Blood Count 17.8 TH/MM3 (4.0-11.0) Red Blood Count 3.32 MIL/MM3 (4.00-5.30) Hemoglobin 9.7 GM/DL (11.6-15.3) Hematocrit 31.7 % (35.0-46.0) Mean Corpuscular Hemoglobin Concent 30.7 % (32.0-36.0) Neutrophils (%) (Auto) 80.7 % (16.0-70.0) Monocytes (%) (Auto) 9.2 % (0.0-8.0) Neutrophils # (Auto) 14.3 TH/MM3 (1.8-7.7) Monocytes # (Auto) 1.6 TH/MM3 (0-0.9) Blood Urea Nitrogen 70 MG/DL (7-18) Creatinine 6.54 MG/DL (0.50-1.00) Total Protein 8.6 GM/DL (6.4-8.2) Calcium Level 7.8 MG/DL (8.5-10.1) Alkaline Phosphatase 120 U/L (45-117) Aspartate Amino Transf (AST/SGOT) 45 U/L (15-37) Sodium Level 135 MEQ/L (136-145) Potassium Level 7.5 MEQ/L (3.5-5.1) Chloride Level 109 MEQ/L (98-107) Carbon Dioxide Level 10.6 MEQ/L (21.0-32.0) Estimat Glomerular Filtration Rate 7 ML/MIN (>89) Lipase 50 U/L (73-393) Ammonia 33 MCMOL/L (11-32) Last 24 hours Impressions Chest X-Ray 06/14/17 1022 Signed Impressions: Service Date/Time: Monday, June 14, 2017 10:33 - CONCLUSION: No acute disease. Cullen Schmitz MD FACR Differential Diagnosis Back pains: Acute on chronic back pains versus opiate withdrawals versus psychosis versus sepsis versus anxiety attack Narrative Course Patient is a difficult historian, would answer some questions and then just cries when I asked other questions, avoids answering them. She had denied any injuries but she does have an abrasion to her right knee, does not answer me when I ask what has happened to her knee. Review of patient's previous exam shows that she's had history of chronic back pains with previous compression fracture at L3. She denies any IV drug use or substance use. She was initially given Ativan for anxiety, and Dilaudid for pain. Considering her tachycardia, IV fluids was given and sepsis protocol was initiated. Lab work came back showing acute renal failure with creatinine of 5, potassium of 7.5, and leukocytosis with white count of 17. There is concern for underlying sepsis and IV antibiotics were initiated after cultures were drawn. A Irwin catheter was placed and it shows cloudy urine concerning for urosepsis. MRI of the T and L-spine was ordered due to patient's complain, sepsis, and concern of possible spinal abscess. Patient is a fairly poor historian and it is hard to localize or concerns. CT brain has been ordered for further evaluation as well for evaluation of altered mental status. Hyperkalemia protocol was initiated with glucose and insulin, calcium gluconate, and bicarbonate ordered. Case was then discussed with acrylic fabricator Dr. Kunz who accepts admission. He would like renal consult on the patient. He also states he would like further IV fluids as well. Aggregate critical care time was35 minutes. Time to perform other separately billable procedures was not included in the critical care time. My time did not include minutes spent treating any other patients simultaneously or on activities that did not directly contribute to the patient's treatment. The services I provided to this patient were to treat and/or prevent clinically significant deterioration that could result in: Septic shock, cardiopulmonary arrest, I provided critical care services requiring my management, as noted below: Chart data review, documentation time, medication orders and management, vital sign assessments/reviewing monitor data, ordering and reviewing lab tests, ordering and interpreting/reviewing x-rays and diagnostic studies, care of the patient and discussion of the patient with the admitting physicians. Diagnosis Primary Impression: Severe sepsis Additional Impressions: UTI (urinary tract infection) Acute renal failure Hyperkalemia Admitting Information Admitting Physician Requests: Admit Osbaldo Balbuena MD Jun 14, 2017 10:51
[2017-06-14] MEDS ORDERED: ROBA500T PO (10:54)
[2017-06-14] MEDS ORDERED: TRAZ1TAB14 PO (10:54)
[2017-06-14] MEDS ORDERED: CLIN150C14 PO (10:54)
[2017-06-14] MEDS ORDERED: METF500T PO (10:54)
[2017-06-14 11:05] LABS: ALT (GPT) 19 U/L (10-53); ANION GAP 15 MEQ/L (5-15); AST (GOT) 45 U/L (15-37); BICARBONATE 10.6 MEQ/L (21.0-32.0); BLOOD UREA NITROGEN 70 MG/DL (7-18); CHLORIDE 109 MEQ/L (98-107); GLOMERULAR FILTRATION RATE 7 ML/MIN (>89); SODIUM (NA) 135 MEQ/L (136-145)
[2017-06-14 11:06] LABS: ALKALINE PHOSPHATASE 120 U/L (45-117); TOTAL BILIRUBIN ADULT 0.3 MG/DL (0.2-1.0)
[2017-06-14 11:08] LABS: POTASSIUM 7.5 MEQ/L (3.5-5.1)
[2017-06-14] MEDS ORDERED: INSULIN HUMAN REGULAR 1,000 UNITS/10 ML VIAL IV PUSH ONE (11:15)
[2017-06-14] MEDS ORDERED: CALCIUM GLUCONATE 10% 1 GM/10 ML VIAL SLOW IVP ONE (11:15)
[2017-06-14] MEDS ORDERED: DEXTROSE 50% IN WATER 50 ML VIAL(D50) IV PUSH ONE ×2 (11:15→13:00)
[2017-06-14] MEDS ORDERED: SODIUM BICARBONATE 8.4% SOLN 50 MEQ/50 ML VIAL SLOW IVP ONE (11:15)
[2017-06-14 11:33] LABS: AUTOMATED NEUTROPHIL # 14.3 TH/MM3 (1.8-7.7); BASOPHIL % 0.2 % (0.0-2.0); EOSINOPHIL % 0.2 % (0.0-4.0); HEMATOCRIT 31.7 % (35.0-46.0); HEMO FLAGS DIFF FINAL; LYMPH % 9.7 % (9.0-44.0); LYMPHOCYTE # 1.7 TH/MM3 (1.0-4.8); MEAN CELL VOLUME 95.6 FL (80.0-100.0); MEAN CORPUSCULAR HEMOGLOBIN 29.4 PG (27.0-34.0); MEAN CORPUSCULAR HGB CONC 30.7 % (32.0-36.0); MONO % 9.2 % (0.0-8.0); NEUT % 80.7 % (16.0-70.0); PLATELET COUNT 325 TH/MM3 (150-450); RED BLOOD COUNT 3.32 MIL/MM3 (4.00-5.30); RED CELL DISTRIBUTION WIDTH 15.6 % (11.6-17.2); WHITE BLOOD COUNT 17.8 TH/MM3 (4.0-11.0)
[2017-06-14] MEDS ORDERED: MAGNESIUM HYDROXIDE SUSP 30 ML CUP PO PRN (11:45)
[2017-06-14] MEDS ORDERED: LACTULOSE SYRUP 20 GM/30 ML CUP PO PRN (11:45)
[2017-06-14] MEDS ORDERED: SENNOSIDES 8.6 MG TAB PO PRN (11:45)
[2017-06-14] MEDS ORDERED: CHLORHEXIDINE GLUCONATE 2 % 1 PACK (2 CLOTHS) TOP PRN (11:45)
[2017-06-14] MEDS ORDERED: MISCELLANEOUS NURSING INFORMATION XX SCH (11:45)
[2017-06-14] MEDS ORDERED: SODIUM CHLORIDE 0.9% FLUSH 10 ML FLUSH IV FLUSH PRN (11:45)
[2017-06-14] MEDS ORDERED: BISACODYL 10 MG SUPP RECTAL PRN (11:45)
[2017-06-14] MEDS ORDERED: PIPERACIL-TAZO 4.5 GM PREMIX 100 ML IV STA (11:47)
[2017-06-14] MEDS: RESP: ALBUTEROL 2.5 MG/IPRATROPIUM 0.5 MG NEB (SCH) INH ×3 (12:00→20:50)
[2017-06-14 12:19] LABS: BLOOD GAS BASE EXCESS -17.1 mmol/L (-2-2); BLOOD GAS CARBOXYHEMOGLOBIN 0.7 % (0-4); BLOOD GAS HCO3 11 mmol/L (22-26); BLOOD GAS O2 HGB SATURATION 88 % (90-100); BLOOD GAS OXYGEN CONTENT 11.5 Vol % (12.0-20.0); BLOOD GAS PCO2 38 mmHg (38-42); BLOOD GAS PO2 70 mmHG (61-120); BLOOD GAS TOTAL HGB 9.2 G/DL (12.0-16.0)
[2017-06-14 12:21] LABS: CRITICAL VALUE YES; DRAW SITE RT RADIAL; FIO2 21 %; NUMBER OF ARTERIAL PUNCTURES 1; STAT YES; ULNAR PULSE PRESENT
[2017-06-14 12:23] LABS: BACTERIA, URINE MANY /hpf; BLOOD, URINE SMALL (NEG); GLUCOSE,URINE NEG (NEG); HYALINE CAST, URINE 6 /lpf (RARE); KETONE, URINE NEG (NEG); NITRITE,URINE NEG (NEG); PH, URINE 5.5 (5.0-8.5); SQUAMOUS EPITHELIAL CELL URINE 1 /hpf (0-5); URINE COLOR YELLOW (YELLW/STRAW)
[2017-06-14 12:26] LABS: COMMENT (UR) CATH-CULTURE IND; CULTURE IF INDICATED CATH CULTURE IND
[2017-06-14] MEDS ORDERED: SODIUM POLYSTYRENE SULFONATE SUSP 15 GM/60 ML CUP PO ONE (12:30)
[2017-06-14] MEDS ORDERED: ETOMIDATE 20 MG/10 ML VIAL IVP ONE (13:00)
[2017-06-14] MEDS ORDERED: VECURONIUM BROMIDE 10 MG VIAL IV PUSH ONE (13:00)
[2017-06-14] MEDS ORDERED: SODIUM CHLORIDE 0.9% FLUSH 10 ML FLUSH IVF PRN (13:00)
[2017-06-14] MEDS ORDERED: VASOPRESSIN INJ 40 UNITS in DEXTROSE 5% IN WATER 100ML INJ 98 ML IV SCH ×2 (13:24)
[2017-06-14] MEDS ORDERED: NOREPINEPHRINE 4 MG/4 ML AMP ONE (13:24)
[2017-06-14] MEDS ORDERED: EPINEPHrine (1:1000) INJ 2 MG in DEXTROSE 5% IN WATER INJ 248 ML IV PRN ×2 (13:30)
[2017-06-14] MEDS ORDERED: NOREPINEPHRINE-DEXTROSE DRIP 250 ML IV PRN ×2 (13:30→13:45)
[2017-06-14] MEDS ORDERED: RESP: ALBUTEROL 2.5 MG/3 ML NEB (PRN) ONE (13:33)
[2017-06-14] MEDS ORDERED: TERBUTALINE INJ 1 MG/ML AMP SQ PRN (13:45)
[2017-06-14] MEDS ORDERED: fentaNYL DRIP 250 ML IV PRN (13:45)
[2017-06-14] MEDS ORDERED: MIDAZOLAM 100 MG/100 ML INJ 100 ML IV PRN (13:45)
[2017-06-14] MEDS ORDERED: cefTRIAXone INJ 1,000 MG in SODIUM CHLORIDE 0.9% INJ 100 ML IV SCH (14:00)
--- NOTE | 2017-06-14 14:06 | HHI.HP ---
[facility] Service Critical Care Medicine Primary Care Physician Unknown Admission Diagnosis severe sepsis/UTI/encephalopathy/ARF/hyperkalemia Diagnosis: (1) Acute respiratory failure Diagnosis: Principal (2) Acute encephalopathy Diagnosis: Principal (3) Septic shock Diagnosis: Principal (4) Acute renal failure Diagnosis: Principal (5) Hyperkalemia Diagnosis: Principal (6) Metabolic acidosis Diagnosis: Principal (7) Hypoglycemia Diagnosis: Principal (8) UTI (urinary tract infection) Diagnosis: Principal (9) Acute exacerbation of chronic low back pain Diagnosis: Principal (10) Diabetes mellitus, type 2 Diagnosis: Secondary (11) Compression fracture of L3 lumbar vertebra Diagnosis: Secondary Chief Complaint: Altered mental status Severe encephalopathy Severe back pain Travel History International Travel<30 Days: No Contact w/Intl Traveler <30 Da: No Traveled to Known Affected Are: No Sepsis Criteria SIRS Criteria (2 or more): Heart rate over 90, WBC > 02679, < 4000 or > 10% bands Sepsis Criteria (SIRS+source): Infect source susp/known Severe Sepsis (+one): Hypotension, Hypoperfusion, Acute Oliguria/Renal Failure Septic Shock Criteria: Unresponsive to 30ml/kg fluid bolus Multiple Organ Dysfunction Syn: Evidence -2 organs failing Criteria Outcome: Meets septic shock criteria History of Present Illness Patient is a 56-year-old female patient past medical history significant for type 2 diabetes, hypertension, dyslipidemia, history of chronic back pains secondary to L3 compression fracture, hypothyroidism, presented to the ER today with excruciating back pain, 9 out of 10. She denied any constitutional symptoms including fever chills nausea vomiting diarrhea. According to Dr. Navarro patient was a very poor historian and was encephalopathic. Patient admitted to the nursing staff taking IV Dilaudid yesterday. Patient was initially given 2 L of normal saline boluses for severe tachycardia and borderline hypotension. Her Lab work came back showing acute renal failure creatinine of 6.5, BUN 70 and potassium of 7.5, and leukocytosis with white count of 17.8 with Left shift. UA showed evidence of UTI. ABG showed a pH of 7.09 PCO2 of 38 and PO2 of 70 and base excess was -70. A Irwin catheter was placed and it shows cloudy urine. Patient received treatment for hyperkalemia man with 2 A of bicarbonate , calcium gluconate 2 g, DuoNeb breathing treatments, IV insulin 6 units followed by dextrose, and I have ordered Kayexalate also. Dr. Mcbride had been contacted personally by myself regarding possible dialysis if hyperkalemia not improving. Cultures have been sent and patient had been placed on vancomycin and Zosyn. CT of the head and MRI of the T and L-spine was ordered due to altered mentation and severe back pain. I evaluated the patient in the emergency department. Patient had been just intubated for worsening lethargy and altered mentation and severe metabolic acidosis. On my exam patient is under neuromuscular blockade and this limits limits exam. Her blood pressure is 80 systolic, 2 additional limited normal saline boluses, 2 more grams of bicarbonate, and Levophed to be started. I increase her respiratory rate on the vent from 12 to18 and increase the tidal volume to 600 to attempt to normalize pH. Review of Systems ROS Limitations: Intubated, Altered Mental Status Past Family Social History Allergies: Coded Allergies: No Known Allergies (Unverified , 02/07/17) Past Medical History Type 2 diabetes Hypertension Dyslipidemia L2 compression fractures with back pain Past Surgical History Unable to obtain Reported Medications Lovastatin 40 Mg Tab 40 Mg PO DAILY Ibuprofen 800 Mg Tab 800 Mg PO Q8H PRN Hydrochlorothiazide 25 Mg Tab 25 Mg PO DAILY Lisinopril 20 Mg Tab 20 Mg PO DAILY Gemfibrozil 600 Mg Tab 600 Mg PO BIDAC Gabapentin 600 Mg Tab 600 Mg PO TID Metformin (Metformin HCl) 500 Mg Tab 500 Mg PO BID Trazodone (Trazodone HCl) 150 Mg Tablet 150 Mg PO HS Robaxin (Methocarbamol) 500 Mg Tab 500 Mg PO QID PRN Clindamycin (Clindamycin HCl) 150 Mg Cap 450 Mg PO Q6H 10 Days Zoloft (Sertraline HCl) 100 Mg Tab 200 Mg PO DAILY Seroquel (Quetiapine Fumarate) 50 Mg Tab 50 Mg PO HS Wellbutrin Xl 24 HR (Bupropion HCl) 150 Mg Tab 150 Mg PO DAILY Active Ordered Medications Reviewed Family History Mother had history of hypertension, CAD per chart review Social History According to the ER documentation smokes half packs of cigarettes a day, occasional alcohol use 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 Abrasion to the right knee. HEAD: Atraumatic. Normocephalic. EYES: Pupils equal and round. No scleral icterus. No injection or drainage. ENT: No nasal bleeding or discharge. ETT in place NECK: Trachea midline. No JVD. CARDIOVASCULAR: Regular rate and rhythm. Grade 2 systolic murmur heard in the apical region and left sternal border RESPIRATORY: Intubated sedated. Breath sounds equal bilaterally, with equal chest rise. GASTROINTESTINAL: Abdomen soft, non-tender, nondistended. Hepatic and splenic margins not palpable. : Irwin with 100 ml dark urine BACK: No CVA tenderness. No rash. Exam limited due to sedation and neuromuscular paralysis MUSCULOSKELETAL: No edema. NEUROLOGICAL: Intubated sedated and neuromuscularly paralyzed now. Neuro exam is limited pupils are round and equal Laboratory Laboratory Tests Test 06/14/17 10:35 06/14/17 10:36 06/14/17 12:00 06/14/17 12:01 White Blood Count 17.8 Red Blood Count 3.32 Hemoglobin 9.7 Hematocrit 31.7 Mean Corpuscular Volume 95.6 Mean Corpuscular Hemoglobin 29.4 Mean Corpuscular Hemoglobin Concent 30.7 Red Cell Distribution Width 15.6 Platelet Count 325 Mean Platelet Volume 9.9 Neutrophils (%) (Auto) 80.7 Lymphocytes (%) (Auto) 9.7 Monocytes (%) (Auto) 9.2 Eosinophils (%) (Auto) 0.2 Basophils (%) (Auto) 0.2 Neutrophils # (Auto) 14.3 Lymphocytes # (Auto) 1.7 Monocytes # (Auto) 1.6 Eosinophils # (Auto) 0.0 Basophils # (Auto) 0.0 CBC Comment DIFF FINAL Differential Comment Blood Urea Nitrogen 70 Creatinine 6.54 Random Glucose 88 Total Protein 8.6 Albumin 3.7 Calcium Level 7.8 Alkaline Phosphatase 120 Aspartate Amino Transf (AST/SGOT) 45 Alanine Aminotransferase (ALT/SGPT) 19 Total Bilirubin 0.3 Sodium Level 135 Potassium Level 7.5 Chloride Level 109 Carbon Dioxide Level 10.6 Anion Gap 15 Estimat Glomerular Filtration Rate 7 Lactic Acid Level 1.6 Lipase 50 Ethyl Alcohol Level 3 Ammonia 33 Urine Color YELLOW Urine Turbidity CLOUDY Urine pH 5.5 Urine Specific [place] 1.027 Urine Protein 300 Urine Glucose (UA) NEG Urine Ketones NEG Urine Occult Blood SMALL Urine Nitrite NEG Urine Bilirubin NEG Urine Urobilinogen 2.0 Urine Leukocyte Esterase LARGE Urine RBC 21 Urine WBC Urine WBC Clumps MANY Urine Squamous Epithelial Cells 1 Urine Bacteria MANY Urine Hyaline Casts 6 Microscopic Urinalysis Comment CATH-CULTURE IND Blood Gas Puncture Site RT RADIAL Blood Gas Patient Temperature 37.0 Blood Gas HCO3 11 Blood Gas Base Excess -17.1 Blood Gas Oxygen Saturation 88 Arterial Blood pH 7.09 Arterial Blood Partial Pressure CO2 38 Arterial Blood Partial Pressure O2 70 Arterial Blood Oxygen Content 11.5 Arterial Blood Carboxyhemoglobin 0.7 Arterial Blood Methemoglobin 1.0 Blood Gas Hemoglobin 9.2 Blood Gas Inspired Oxygen 21 Date/Time Source Procedure Growth Status 06/14/17 10:36 Blood Peripheral Aerobic Blood Culture Pending Received 06/14/17 10:36 Blood Peripheral Anaerobic Blood Culture Pending Received 06/14/17 12:00 Urine Catheterized Urine Urine Culture Pending Received Result Diagram: 06/14/17 1035 06/14/[address] of the head no acute findings on my review Septic Shock Reassessment Heart: Regular rate and rhythm Lungs: Course Skin: Dry Peripheral Pulses: Weak Right Radial Weak Left Radial Caprini VTE Risk Assessment Caprini VTE Risk Assessment: Mod/High Risk (score >= 2) Caprini Risk Assessment Model Point Value = 1 Point Value = 2 Point Value = 3 Point Value = 5 Age 41-60 Minor surgery BMI > 25 kg/m2 Swollen legs Varicose veins or History of unexplained or recurrent spontaneous Oral contraceptives or hormone replacement Sepsis (< 1 month) Serious lung disease, including pneumonia (< 1 month) Abnormal pulmonary function Acute myocardial infarction Congestive heart failure (< 1 month) History of inflammatory bowel disease Medical patient at bed rest Age 61-74 Arthroscopic surgery Major open surgery (> 45 min) Laparoscopic surgery (> 45 min) Malignancy Confined to bed (> 72 hours) Immobilizing plaster cast Central venous access Age >= 75 History of VTE Family history of VTE Factor V Leiden Prothrombin [id number] Lupus anticoagulant Anticardiolipin antibodies Elevated serum homocysteine Heparin-induced thrombocytopenia Other congenital or acquired thrombophilia Stroke (< 1 month) Elective arthroplasty Hip, pelvis, or leg fracture Acute spinal cord injury (< 1 month) Prophylaxis Regimen Total Risk Factor Score Risk Level Prophylaxis Regimen 0-1 Low Early ambulation 2 Moderate Order ONE of the following: *Sequential Compression Device (SCD) *Heparin 5000 units SQ BID 3-4 Higher Order ONE of the following medications: *Heparin 5000 units SQ TID *Enoxaparin/Lovenox 40 mg SQ daily (WT < 150 kg, CrCl > 30 mL/min) *Enoxaparin/Lovenox 30 mg SQ daily (WT < 150 kg, CrCl > 10-29 mL/min) *Enoxaparin/Lovenox 30 mg SQ BID (WT < 150 kg, CrCl > 30 mL/min) AND/OR *Sequential Compression Device (SCD) 5 or more Highest Order ONE of the following medications: *Heparin 5000 units SQ TID (Preferred with Epidurals) *Enoxaparin/Lovenox 40 mg SQ daily (WT < 150 kg, CrCl > 30 mL/min) *Enoxaparin/Lovenox 30 mg SQ daily (WT < 150 kg, CrCl > 10-29 mL/min) *Enoxaparin/Lovenox 30 mg SQ BID (WT < 150 kg, CrCl > 30 mL/min) AND *Sequential Compression Device (SCD) Assessment and Plan Assessment and Plan NEURO: Acute encephalopathy Possible IV drug use L3 compression fracture - Encephalopathy most likely metabolic from severe sepsis - CT of the head negative for any acute findings, urine drug screen is pending - Versed and fentanyl for sedation and ventilator synchrony - N/S consult if needed after MRI of T/L spine RESP: Acute respiratory failure Severe metabolic acidosis - Intubated for severe acidosis and her failure to protect airway - Hypoventilated with high minute volume settings to attempt to correct the pH, repeat ABG pending - DuoNeb breathing treatments 3 and every 4 hours scheduled in an attempt to correct hyperkalemia - Sputum culture CV: Shock - Normal saline IV fluids 4L bolus and D5/bicarb at 150 ml per hour - 2d echo, to evaluate murmur, r/o endocarditis GI: - Nothing by mouth, IV Protonix : Acute kidney failure Severe hyperkalemia - Monitor renal function closely. Irwin catheter. - Continue aggressive hydration and bicarbonate infusion - Received calcium gluconate, IV bicarbonate, DuoNeb breathing treatments, IV insulin/dextrose for severe hyperkalemia ID: Septic shock UTI - Blood culture urine culture and sputum culture - IV vancomycin, Zosyn. HEME: Leukocytosis secondary to sepsis - Monitor CBC, CMP, coags ENDO: - See treatment for hyperkalemia above PROPH: - Bilateral lower extremity SCDs. Heparin sq 5000 sq q12, IV Protonix LINES: - Utilize peripheral IVs, central line if needed CC time 90 min Code Status Full Discussed Condition With Dr. Navarro, Dr. Mcbride Problem Qualifiers (1) Acute respiratory failure: Qualified Codes: J96.00 - Acute respiratory failure, unspecified whether with hypoxia or hypercapnia (2) Acute renal failure: Qualified Codes: N17.9 - Acute kidney failure, unspecified (3) UTI (urinary tract infection): (4) Diabetes mellitus, type 2: Mary Kunz MD Jun 14, 2017 14:06
--- NOTE | 2017-06-14 14:31 | RADRPT ---
EXAM DATE/TIME: 06/14/2017 13:37 [facility] COMPARISON: CHEST SINGLE AP, June 14, 2017, 10:33. INDICATIONS : Post Procedure.Intubation. MEDICAL HISTORY : Cardiovascular disease. Hypertension SURGICAL HISTORY : Hysterectomy. ENCOUNTER: Initial ACUITY: 1 day PAIN SCORE: Non-responsive. LOCATION: Bilateral chest FINDINGS: ET tube nasogastric tube in good position. Right lung clear. Minimal parenchymal changes left base. The heart and pulmonary vascularity are normal. CONCLUSION: Support apparatus in good position. Minimal parenchymal changes left base. Cullen Schmitz MD FACR on June 14, 2017 at 14:28 Board Certified Radiologist. This report was verified electronically.
[2017-06-14] MEDS: HEPARIN SODIUM - SQ 10,000 UNITS/ML VIAL SQ SCH ×2 (15:00→21:30)
[2017-06-14 15:35] LABS: BLOOD GAS BASE EXCESS -9.9 mmol/L (-2-2); BLOOD GAS CARBOXYHEMOGLOBIN 0.8 % (0-4); BLOOD GAS HCO3 16 mmol/L (22-26); BLOOD GAS METHEMOGLOBIN 1.3 % (0-2); BLOOD GAS O2 HGB SATURATION 92 % (90-100); BLOOD GAS PCO2 37 mmHg (38-42); BLOOD GAS PO2 70 mmHG (61-120); BLOOD GAS TOTAL HGB 7.7 G/DL (12.0-16.0)
[2017-06-14 15:36] LABS: CRITICAL VALUE YES; DRAW SITE LT RADIAL; FIO2 50 %; NUMBER OF ARTERIAL PUNCTURES 1; OXYGEN DEVICE VENTILATOR; STAT NO; ULNAR PULSE PRESENT; VENT SETTINGS AC/RR20/VT600/PEEP5
--- NOTE | 2017-06-14 15:42 | RADRPT ---
EXAM DATE/TIME: 06/14/2017 14:21 [facility] COMPARISON: CHEST SINGLE AP, June 14, 2017, 13:37. MRI LUMBAR SPINE W & W/O CONTRAST, February 18, 2017, 20:05 . MRI THORACIC SPINE W & W/O CONTRAST, February 18, 2017, 20:05. OUTSIDE COMPARISON: MRI thoracic spine [facility] February 17, 2017 INDICATIONS : Chronic back pain. MEDICAL HISTORY : IVDA SURGICAL HISTORY : MANAGER CASE surgery ENCOUNTER: Initial ACUITY: 1 day PAIN SCORE: Nonresponsive. LOCATION: back TECHNIQUE: Multiplanar multisequence MRI of the thoracic spine was performed. FINDINGS: There has been interval decompressive thoracic surgery with laminectomies at T6 and T7. There is some fluid in the soft tissues dorsal to the thecal sac at the level of the laminectomies. 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 There is deformity of the thoracic cord which is basically stable and appears to relate at least in part to sequestered CSF collections around the mid thoracic spinal cord. The a ppearance is essentially unchanged. The vertebral column is stable intact and benign in appearance. Elsewhere on the study, note is made of significant parenchymal lung disease. There are this disease changes and spondylosis also present in the cervical and lumbosacral regions n oted on the localizer. These areas could be further evaluated with MRI of the cervical spine or lumbo sacral spine if clinically appropriate. CONCLUSION: Interval decompressive surgery in the mid thoracic region. Stable appearance of chronic cord deformit y and syrinx formation. No other definite acute findings. Ze Crocker MD on June 14, 2017 at 14:50 Board Certified Radiologist. This report was verified electronically.
--- NOTE | 2017-06-14 16:02 | RADRPT ---
EXAM DATE/TIME: 06/14/2017 13:57 [facility] COMPARISON: CT BRAIN W/O CONTRAST, May 30, 2016, 8:53. INDICATIONS : Altered mental status. RADIATION DOSE: 29.82 CTDIvol (mGy) MEDICAL HISTORY : Cardiovascular disease. Hypertension. Diabetes mellitus type 2.Meningitis SURGICAL HISTORY : Hysterectomy. ENCOUNTER: Initial ACUITY: 1 day PAIN SCALE: Non-responsive LOCATION: cranial TECHNIQUE: Multiple contiguous axial images were obtained of the head. Using automated exposure control and adj ustment of the mA and/or kV according to patient size, radiation dose was kept as low as reasonably a chievable to obtain optimal diagnostic quality images. DICOM format image data is available electro nically for review and comparison. FINDINGS: CEREBRUM: The ventricles are normal for age. No evidence of midline shift, mass lesion, hemorrhage or acute in farction. No extra-axial fluid collections are seen. POSTERIOR FOSSA: The cerebellum and brainstem are intact. The 4th ventricle is midline. The cerebellopontine angle i s unremarkable. EXTRACRANIAL: The visualized portion of the orbits is intact. SKULL: The calvaria is intact. No evidence of skull fracture. CONCLUSION: Normal examination. Allan Joyce Jr., MD on June 14, 2017 at 16:00 Board Certified Radiologist. This report was verified electronically.
--- NOTE | 2017-06-14 16:25 | RADRPT ---
EXAM DATE/TIME: 06/14/2017 14:21 [facility] COMPARISON: MRI LUMBAR SPINE W & W/O CONTRAST, February 18, 2017, 20:05. INDICATIONS : Chronic back pain. MEDICAL HISTORY : IVDA SURGICAL HISTORY : NURSE GYNECOLOGY surgery ENCOUNTER: Initial ACUITY: 1 day PAIN SCORE: Nonresponsive. LOCATION: back TECHNIQUE: Multiplanar multisequence MRI of the lumbar spine was performed without contrast. FINDINGS: The most caudal appearing lumbar vertebra is numbered as L5. VERTEBRAE: There is a superior endplate compression deformity that has progressed involving the L3 vertebral bod y. There is now 50% loss of height. There is 5 mm of posterior retropulsion involving the posterior c ortical margin. This is new as well. Linear edema is seen involving the inferior endplate of L5 witho ut significant loss of height. This is a new finding. No retropulsion. The remaining vertebral body h eights are maintained. CONUS: Normal level and configuration. T12-L1: The thecal sac has a normal diameter. No evidence of disc bulge or protrusion. The neural foramina are patent bilaterally. L1-L2: There is disc desiccation with mild disc space height narrowing. A mild broad-based bulge. Lateral re cesses, central canal, and neural foramen are patent. Facet joints are unremarkable. L2-L3: There is retropulsion measuring 5 mm that flattens the ventral portion of the thecal sac causing aneta re central canal stenosis. The central canal intrathecal space measures 5 mm in anterior to posterior dimension. This is a new finding. A left posterior lateral disc bulge effaces the left neural forame n impinging the exiting L2 nerve root. The right neural foramen is patent. Moderate facet arthropathy changes. L3-L4: Disc desiccation with minimal loss of height and mild broad-based bulge. Moderate ligamenta flava hyp ertrophy and bony hypertrophy of the facets. Intrathecal space of the central canal shows some narrow ing measuring 8 mm in anterior to posterior dimension. Some narrowing of the neural foramina bilatera lly without overt impingement. L4-L5: Disc desiccation and disc space narrowing with moderate broad-based disc bulge. Moderate ligamentum p late hypertrophy and to a lesser degree bony hypertrophy of the facets. Narrowing of the central errol l but the intrathecal space measuring 7 mm in anterior to posterior dimension. There is narrowing of the right neural foramen without overt impingement. The left remains patent. L5-S1: There is a mild right posterior lateral disc bulge that narrows the right neural foramen without over t impingement. Central canal and left neural foramen are patent. Moderate bony hypertrophy of the fac ets. CONCLUSION: 1. Worsening compression fracture involving the L3 vertebral body. There is now 50% loss of height in L5 millimeters of retropulsion of the posterior cortical margin with resulting central canal stenosi s. 2. Linear edema paralleling the L5 inferior endplate without appreciable loss of height. This likely relates to an occult compression deformity. 3. Multilevel degenerative changes as detailed above. Allan Joyce Jr., MD on June 14, 2017 at 16:14 Board Certified Radiologist. This report was verified electronically.
--- NOTE | 2017-06-14 16:59 | RADRPT ---
EXAM DATE/TIME: 06/14/2017 16:32 [facility] COMPARISON: No previous studies available for comparison. INDICATIONS : Acute kidney failure. MEDICAL HISTORY : Hypercholesterolemia. Hypertension. Rheumatoid arthritis. Diabetes. Cardiac disorder. Meningitis. Ova bianca cyst. Arthritis. Hepatitis. SURGICAL HISTORY : Hysterectomy. Left breast tumor removed. Right hand surgery. ENCOUNTER: Initial ACUITY: 1 day PAIN SCORE: 0/10 LOCATION: Bilateral flank MEASUREMENTS: RIGHT KIDNEY: 10.9 x 5.2 x 5.2 cm LEFT KIDNEY: 12.1 x 5.9 x 5.6 cm FINDINGS: RIGHT KIDNEY: Renal cortex is normal in thickness and echotexture. No hydronephrosis, stone, or mass. LEFT KIDNEY: Renal cortex is normal in thickness and echotexture. No hydronephrosis, stone, or mass. BLADDER: Decompressed with Irwin catheter present. CONCLUSION: No evidence of hydronephrosis Ze Crocker MD on June 14, 2017 at 16:56 Board Certified Radiologist. This report was verified electronically.
[2017-06-14] MEDS ORDERED: SODIUM BICARBONATE 8.4% INJ 50 MEQ/50 ML SYR IV PUSH ONE (17:00)
[2017-06-14] MEDS: SODIUM BICARBONATE 8.4% INJ 150 MEQ in DEXTROSE 5% IN WATE 1000ML INJ 1,000 ML IV SCH ×2 (17:13)
[2017-06-14 18:18] LABS: BICARBONATE 18.3 MEQ/L (21.0-32.0); MAGNESIUM 1.9 MG/DL (1.5-2.5); POTASSIUM 5.1 MEQ/L (3.5-5.1); TOTAL BILIRUBIN ADULT 0.3 MG/DL (0.2-1.0)
[2017-06-14 18:24] LABS: CALCIUM-PROTEIN CORRECTED 7.1 MG/DL (8.5-10.1)
--- NOTE | 2017-06-14 19:01 | PD.CONS ---
HPI Service Nephrology Consult Requested By Dr. Kunz Reason for Consult Acute renal failure Primary Care Physician Unknown History of Present Illness Patient is a 56-year-old white female with history of smoking, L3 fracture, chronic back pain on Dilaudid. She is confused and unable to provide any history or chart revealed creatinine to be 0.8 in February, she has been diabetic and has arthritis there is a history of right knee sepsis last year, patient was given IV fluids and with fluid challenge and her creatinine dropped from 6.54 -4.88 range, her urine output remains low, calcium dropped and she is getting calcium supplement. Review of Systems ROS Limitations: Clinical Condition Past Family Social History Allergies: Coded Allergies: No Known Allergies (Unverified , 02/07/17) Past Medical History Diabetes Severe arthritis L3 fracture Smoking COPD depression Hypertension Past Surgical History Back surgery Right hand surgery Right foot fracture Right knee arthritis Reported Medications Reported Meds & Active Scripts Active Lovastatin 40 Mg Tab 40 Mg PO DAILY Ibuprofen 800 Mg Tab 800 Mg PO Q8H PRN Hydrochlorothiazide 25 Mg Tab 25 Mg PO DAILY Lisinopril 20 Mg Tab 20 Mg PO DAILY Gemfibrozil 600 Mg Tab 600 Mg PO BIDAC Take 30 minutes prior to breakfast and dinner. Gabapentin 600 Mg Tab 600 Mg PO TID Reported Metformin (Metformin HCl) 500 Mg Tab 500 Mg PO BID Trazodone (Trazodone HCl) 150 Mg Tablet 150 Mg PO HS Robaxin (Methocarbamol) 500 Mg Tab 500 Mg PO QID PRN Clindamycin (Clindamycin HCl) 150 Mg Cap 450 Mg PO Q6H 10 Days Zoloft (Sertraline HCl) 100 Mg Tab 200 Mg PO DAILY Seroquel (Quetiapine Fumarate) 50 Mg Tab 50 Mg PO HS Wellbutrin Xl 24 HR (Bupropion HCl) 150 Mg Tab 150 Mg PO DAILY Active Ordered Medications Current Medications Medications (Trade) Dose Ordered Sig/Abdirizak Route Start Time Stop Time Status Last Admin (NS Flush) 2 ml UNSCH PRN IV FLUSH 06/14/17 11:45 (NS Flush) 2 ml BID IV FLUSH 06/14/17 21:00 (Protonix Inj) 40 mg DAILY IV PUSH 06/15/17 09:00 (Duoneb Neb) 1 ampule Q4HR NEB INH 06/14/17 12:00 Miscellaneous Information 1 Q361D XX 06/14/17 11:45 06/14/17 11:45 (Chlorhexidine 2% Cloth) 3 pack Taper DAILY@04 TOP 06/15/17 04:00 06/11/18 03:59 (Chlorhexidine 2% Cloth) 3 pack UNSCH PRN TOP 06/14/17 11:45 (Kanchan-Colace) 1 tab BID PO 06/14/17 21:00 (Milk Of Magnesia Liq) 30 ml Q12H PRN PO 06/14/17 11:45 (Senokot) 17.2 mg Q12H PRN PO 06/14/17 11:45 (Dulcolax Supp) 10 mg DAILY PRN RECTAL 06/14/17 11:45 (Lactulose Liq) 30 ml DAILY PRN PO 06/14/17 11:45 Sodium Bicarbonate 150 meq/Dextrose 1,150 ml @ 150 mls/hr Q7H40M IV 06/14/17 16:00 06/14/17 17:13 (Peridex 0.12% Liq) 15 ml BID@08,20 MT 06/14/17 20:00 Midazolam HCl 100 ml @ 2 mls/hr TITRATE PRN IV 06/14/17 13:45 06/14/17 17:02 Fentanyl Citrate 250 ml @ 5 mls/hr TITRATE PRN IV 06/14/17 13:45 Norepinephrine Bitartrate 250 ml @ 7.5 mls/hr TITRATE PRN IV 06/14/17 13:45 (Brethine Inj) 1 mg UNSCH PRN SQ 06/14/17 13:45 Piperacillin Sod/ Tazobactam Sod 50 ml @ 100 mls/hr Q6H IV 06/14/17 16:00 (Heparin Inj) 5,000 units Q12HR SQ 06/14/17 15:00 06/14/17 15:00 Family History Noncontributory Social History History of smoking present alcohol use. History of Dilaudid use for arthritis Physical Exam Vital Signs Vital Signs Date Time Temp Pulse Resp B/P (MAP) Pulse Ox O2 Delivery O2 Flow Rate FiO2 06/14/17 16:25 06/14/17 15:30 100 100 06/14/17 15:00 83 20 82/49 (60) 99 Auto-Vent 50 06/14/17 14:00 50 06/14/17 13:45 98 100 06/14/17 13:15 98 100 06/14/17 13:15 50 06/14/17 13:13 111 12 105/52 (69) 98 Ventilator 50 06/14/17 13:08 100 50 06/14/17 10:31 99.7 126 24 144/94 (111) 94 Room Air 06/14/17 10:30 129 24 93 Room Air 06/14/17 10:30 94 Room Air 06/14/17 10:14 99.7 130 18 144/94 (111) 94 Physical Exam GENERAL: Well-nourished, well-developed patient. On ventilator SKIN: Warm and dry. HEAD: Normocephalic. EYES: No scleral icterus. No injection or drainage. NECK: Supple, trachea midline. No JVD or lymphadenopathy. CARDIOVASCULAR: Regular rate and rhythm without murmurs, gallops, or rubs. RESPIRATORY: Breath sounds are coarse and rhonchi present GASTROINTESTINAL: Abdomen soft, non-tender, nondistended. EXTREMITIES: No cyanosis, or edema. NEUROLOGICAL: Obtunded Laboratory Laboratory Tests Test 06/14/17 10:35 06/14/17 10:36 06/14/17 12:00 06/14/17 12:01 White Blood Count 17.8 Red Blood Count 3.32 Hemoglobin 9.7 Hematocrit 31.7 Mean Corpuscular Volume 95.6 Mean Corpuscular Hemoglobin 29.4 Mean Corpuscular Hemoglobin Concent 30.7 Red Cell Distribution Width 15.6 Platelet Count 325 Mean Platelet Volume 9.9 Neutrophils (%) (Auto) 80.7 Lymphocytes (%) (Auto) 9.7 Monocytes (%) (Auto) 9.2 Eosinophils (%) (Auto) 0.2 Basophils (%) (Auto) 0.2 Neutrophils # (Auto) 14.3 Lymphocytes # (Auto) 1.7 Monocytes # (Auto) 1.6 Eosinophils # (Auto) 0.0 Basophils # (Auto) 0.0 CBC Comment DIFF FINAL Differential Comment Blood Urea Nitrogen 70 Creatinine 6.54 Random Glucose 88 Total Protein 8.6 Albumin 3.7 Calcium Level 7.8 Alkaline Phosphatase 120 Aspartate Amino Transf (AST/SGOT) 45 Alanine Aminotransferase (ALT/SGPT) 19 Total Bilirubin 0.3 Sodium Level 135 Potassium Level 7.5 Chloride Level 109 Carbon Dioxide Level 10.6 Anion Gap 15 Estimat Glomerular Filtration Rate 7 Lactic Acid Level 1.6 Lipase 50 Ethyl Alcohol Level 3 Ammonia 33 Urine Color YELLOW Urine Turbidity CLOUDY Urine pH 5.5 Urine Specific Likely 1.027 Urine Protein 300 Urine Glucose (UA) NEG Urine Ketones NEG Urine Occult Blood SMALL Urine Nitrite NEG Urine Bilirubin NEG Urine Urobilinogen 2.0 Urine Leukocyte Esterase LARGE Urine RBC 21 Urine WBC Urine WBC Clumps MANY Urine Squamous Epithelial Cells 1 Urine Bacteria MANY Urine Hyaline Casts 6 Microscopic Urinalysis Comment CATH-CULTURE IND Urine Opiates Screen POS Urine Barbiturates Screen NEG Urine Amphetamines Screen NEG Urine Benzodiazepines Screen NEG Urine Cocaine Screen NEG Urine Cannabinoids Screen NEG Blood Gas Puncture Site RT RADIAL Blood Gas Patient Temperature 37.0 Blood Gas HCO3 11 Blood Gas Base Excess -17.1 Blood Gas Oxygen Saturation 88 Arterial Blood pH 7.09 Arterial Blood Partial Pressure CO2 38 Arterial Blood Partial Pressure O2 70 Arterial Blood Oxygen Content 11.5 Arterial Blood Carboxyhemoglobin 0.7 Arterial Blood Methemoglobin 1.0 Blood Gas Hemoglobin 9.2 Blood Gas Inspired Oxygen 21 Test 06/14/17 15:08 06/14/17 16:00 06/14/17 16:35 Blood Gas Puncture Site LT RADIAL Blood Gas Patient Temperature 37.0 Blood Gas HCO3 16 Blood Gas Base Excess -9.9 Blood Gas Oxygen Saturation 92 Arterial Blood pH 7.26 Arterial Blood Partial Pressure CO2 37 Arterial Blood Partial Pressure O2 70 Arterial Blood Oxygen Content 10.0 Arterial Blood Carboxyhemoglobin 0.8 Arterial Blood Methemoglobin 1.3 Blood Gas Hemoglobin 7.7 Oxygen Delivery Device VENTILATOR Blood Gas Ventilator Setting AC/RR20/VT600/PEEP5 Blood Gas Inspired Oxygen 50 Blood Urea Nitrogen 62 Creatinine 4.88 Random Glucose 85 Total Protein 5.8 Albumin 2.5 Calcium Level 6.5 Magnesium Level 1.9 Alkaline Phosphatase 93 Aspartate Amino Transf (AST/SGOT) 36 Alanine Aminotransferase (ALT/SGPT) 20 Total Bilirubin 0.3 Sodium Level 145 Potassium Level 5.1 Chloride Level 114 Carbon Dioxide Level 18.3 Anion Gap 13 Estimat Glomerular Filtration Rate 9 Protein Corrected Calcium 7.1 Vitamin B12 Level 677 Thyroid Stimulating Hormone 3rd Gen 0.351 Date/Time Source Procedure Growth Status 06/14/17 10:36 Blood Peripheral Aerobic Blood Culture Pending Received 06/14/17 10:36 Blood Peripheral Anaerobic Blood Culture Pending Received 06/14/17 12:00 Urine Catheterized Urine Urine Culture Pending Received Result Diagram: 06/14/17 1035 06/14/17 1635 Imaging Last Impressions Chest X-Ray 06/14/17 1309 Signed Impressions: Service Date/Time: Wednesday, June 14, 2017 13:37 - CONCLUSION: Support apparatus in good position. Minimal parenchymal changes left base. Cullen Schmitz MD FACR Head CT 06/14/17 1137 Signed Impressions: Service Date/Time: Wednesday, June 14, 2017 13:57 - CONCLUSION: Normal examination. Allan Joyce Jr., MD Thoracic Spine MRI 06/14/17 1034 Signed Impressions: Service Date/Time: Wednesday, June 14, 2017 14:21 - CONCLUSION: Interval decompressive surgery in the mid thoracic region. Stable appearance of chronic cord deformity and syrinx formation. No other definite acute findings. Ze Crocker MD Lumbar Spine MRI 06/14/17 1034 Signed Impressions: Service Date/Time: Wednesday, June 14, 2017 14:21 - CONCLUSION: 1. Worsening compression fracture involving the L3 vertebral body. There is now 50%% loss of height in L5 millimeters of retropulsion of the posterior cortical margin with resulting central canal stenosis. 2. Linear edema paralleling the L5 inferior endplate without appreciable loss of height. This likely relates to an occult compression deformity. 3. Multilevel degenerative changes as detailed above. Allan Joyce Jr., MD Renal Ultrasound 06/14/17 0000 Signed Impressions: Service Date/Time: Wednesday, June 14, 2017 16:32 - CONCLUSION: No evidence of hydronephrosis Ze Crocker MD Assessment and Plan Problem List: (1) Acute renal failure ICD Codes: N17.9 - Acute kidney failure, unspecified Status: Acute Plan: Likely due to septic shock and dehydration from underlying urinary tract infection I agree with hydration and supportive measures Her creatinine is already declining with fluid challenge Hyperkalemia has resolved Acidosis is improving Continue supportive measures ultrasound kidney was unremarkable Hypocalcemia calcium has been ordered (2) Septic shock ICD Codes: A41.9 - Sepsis, unspecified organism; R65.21 - Severe sepsis with septic shock Plan: Likely urosepsis (3) UTI (urinary tract infection) ICD Codes: N39.0 - Urinary tract infection, site not specified Status: Acute Plan: Recurrent infection she is started on Zosyn (4) Acute encephalopathy ICD Codes: G93.40 - Encephalopathy, unspecified Status: Resolved (5) Metabolic acidosis ICD Codes: E87.2 - Acidosis Status: Resolved Plan: On sodium bicarbonate (6) Diabetes mellitus, type 2 ICD Codes: E11.9 - Type 2 diabetes mellitus without complications Status: Chronic Plan: Monitor blood sugars (7) Compression fracture of L3 lumbar vertebra ICD Codes: S32.030A - Wedge compression fracture of third lumbar vertebra, initial encounter for closed fracture Status: Acute Plan: Supportive care and pain control Problem Qualifiers (1) Acute renal failure: Qualified Codes: N17.9 - Acute kidney failure, unspecified (2) UTI (urinary tract infection): (3) Diabetes mellitus, type 2: Magda Mcbride MD Jun 14, 2017 19:01
[2017-06-14] MEDS ORDERED: CALCIUM CHLORIDE INJ 2 GM in SODIUM CHLORIDE 0.9% INJ 100 ML IV ONE (19:30)
[2017-06-14] MEDS: SODIUM CHLOR 0.9% 1000 ML INJ 1,000 ML IV SCH ×2 (19:43→21:07)
[2017-06-14] MEDS: PIPERACIL-TAZO 2.25 GM PREMIX 50 ML IV SCH ×2 (21:21→23:58)
[2017-06-14] MEDS: CHLORHEXIDINE 0.12% (ORAL KIT) 15 ML CUP MT SCH (21:22)
[2017-06-14] MEDS: SODIUM CHLORIDE 0.9% FLUSH 10 ML FLUSH IV FLUSH SCH (21:24)
[2017-06-14] MEDS: DOCUSATE SODIUM 50 MG/SENNA 8.6 MG TAB PO SCH (21:30)
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
[2017-06-15] VITALS (37 sets, daily range): BP systolic 120–154; BP diastolic 60–78; PULSE 68–97; RESP 18–37; TEMP 98–100.7; O2SAT 93–100
[2017-06-15] MEDS: RESP: ALBUTEROL 2.5 MG/IPRATROPIUM 0.5 MG NEB (SCH) INH ×6 (00:03→20:33)
[2017-06-15] MEDS: SODIUM BICARBONATE 8.4% INJ 150 MEQ in DEXTROSE 5% IN WATE 1000ML INJ 1,000 ML IV SCH ×4 (00:15→07:52)
[2017-06-15] MEDS: CHLORHEXIDINE GLUCONATE 2 % 1 PACK (2 CLOTHS) TOP SCH ×2 (04:00→20:37)
[2017-06-15] MEDS: PIPERACIL-TAZO 2.25 GM PREMIX 50 ML IV SCH ×4 (04:19→20:37)
[2017-06-15 04:40] LABS: AUTOMATED NEUTROPHIL # 5.4 TH/MM3 (1.8-7.7); BASOPHIL % 0.3 % (0.0-2.0); EOSINOPHIL % 0.6 % (0.0-4.0); HEMATOCRIT 21.8 % (35.0-46.0); HEMO FLAGS DIFF FINAL; LYMPH % 16.6 % (9.0-44.0); LYMPHOCYTE # 1.3 TH/MM3 (1.0-4.8); MEAN CELL VOLUME 90.1 FL (80.0-100.0); MEAN CORPUSCULAR HEMOGLOBIN 29.8 PG (27.0-34.0); MONO % 12.7 % (0.0-8.0); NEUT % 69.8 % (16.0-70.0); PLATELET COUNT 226 TH/MM3 (150-450); RED BLOOD COUNT 2.41 MIL/MM3 (4.00-5.30); RED CELL DISTRIBUTION WIDTH 14.7 % (11.6-17.2); WHITE BLOOD COUNT 7.8 TH/MM3 (4.0-11.0)
[2017-06-15 05:13] LABS: ANION GAP 13 MEQ/L (5-15); AST (GOT) 66 U/L (15-37); BICARBONATE 24.5 MEQ/L (21.0-32.0); BLOOD UREA NITROGEN 51 MG/DL (7-18); CHLORIDE 115 MEQ/L (98-107); GLOMERULAR FILTRATION RATE 16 ML/MIN (>89); POTASSIUM 3.7 MEQ/L (3.5-5.1); SODIUM (NA) 152 MEQ/L (136-145)
[2017-06-15 05:18] LABS: ALKALINE PHOSPHATASE 104 U/L (45-117); ALT (GPT) 22 U/L (10-53); TOTAL BILIRUBIN ADULT 0.2 MG/DL (0.2-1.0)
[2017-06-15] MEDS: PANTOPRAZOLE SODIUM 40 MG VIAL IV PUSH SCH (07:58)
[2017-06-15] MEDS: CHLORHEXIDINE 0.12% (ORAL KIT) 15 ML CUP MT SCH ×2 (07:58→20:00)
[2017-06-15] MEDS: SODIUM CHLORIDE 0.9% FLUSH 10 ML FLUSH IV FLUSH SCH ×2 (07:59→20:36)
[2017-06-15] MEDS: HEPARIN SODIUM - SQ 10,000 UNITS/ML VIAL SQ SCH ×2 (07:59→20:37)
[2017-06-15] MEDS: DOCUSATE SODIUM 50 MG/SENNA 8.6 MG TAB PO SCH ×2 (07:59→20:36)
[2017-06-15] MEDS ORDERED: PNEUMOCOCCAL POLYVALENT INJ 25 MCG/0.5 ML SYR IM ONE (10:00)
--- NOTE | 2017-06-15 11:47 | HHI.NPPN ---
Subjective History of Present Illness pt on vent Objective Data Data 06/15/17 06/16/17 19:00 07:00 Intake Total 1155 ml Balance 1155 ml Intake IV Total 1095 ml Tube Irrigant 60 ml Vital Signs Date Time Temp Pulse Resp B/P (MAP) Pulse Ox O2 Delivery O2 Flow Rate FiO2 06/15/17 11:14 30 06/15/17 10:00 81 06/15/17 08:41 95 30 06/15/17 08:00 99.4 75 20 146/67 (93) 95 06/15/17 08:00 75 06/15/17 08:00 30 06/15/17 06:00 74 06/15/17 04:10 99 30 06/15/17 04:00 35 06/15/17 04:00 100.7 91 20 120/69 (86) 99 06/15/17 04:00 91 06/15/17 02:00 95 06/15/17 00:02 100 35 06/15/17 00:00 68 06/15/17 00:00 100.0 68 20 127/60 (82) 100 06/15/17 00:00 35 06/14/17 22:00 70 06/14/17 20:57 100 40 06/14/17 20:00 99.5 85 21 106/56 (73) 100 06/14/17 20:00 40 06/14/17 20:00 85 06/14/17 18:00 79 06/14/17 16:25 06/14/17 16:00 98.9 73 20 146/73 (97) 100 06/14/17 15:30 100 100 06/14/17 15:00 83 20 82/49 (60) 99 Auto-Vent 50 06/14/17 14:00 50 06/14/17 13:45 98 100 06/14/17 13:15 98 100 06/14/17 13:15 50 06/14/17 13:13 111 12 105/52 (69) 98 Ventilator 50 06/14/17 13:08 100 50 -: 06/15/17 0433 06/15/17 0434 Microbiology 06/15/17 Gram Stain, Received Pending 06/15/17 Sputum Culture, Received Pending 06/14/17 Urine Culture, Received Pending Physical Exam General Appearance: Well Developed, Well Nourished Eyes Eye Exam: Pupils Equal Neck Neck Exam: Neck Supple Pulmonary Resp Exam: Clear Bilaterally, Breath Sounds Equal Cardiology CV Exam: Regular, Normal Sinus Rhythm Gastrointestinal/Abdomen GI Exam: Soft, Non-Tender, Bowel Sounds Present Extremeties Extremities Exam: No Edema Assessment/Plan Problem List: (1) Acute renal failure ICD Codes: N17.9 - Acute kidney failure, unspecified Status: Acute Plan: ARF improved K low replaced possible weaning off vent Na high on bicarb drip follow BMP (2) Septic shock ICD Codes: A41.9 - Sepsis, unspecified organism; R65.21 - Severe sepsis with septic shock Plan: Likely urosepsis (3) UTI (urinary tract infection) ICD Codes: N39.0 - Urinary tract infection, site not specified Status: Acute Plan: Recurrent infection she is started on Zosyn (4) Acute encephalopathy ICD Codes: G93.40 - Encephalopathy, unspecified (5) Metabolic acidosis ICD Codes: E87.2 - Acidosis Plan: On sodium bicarbonate (6) Diabetes mellitus, type 2 ICD Codes: E11.9 - Type 2 diabetes mellitus without complications Status: Chronic Plan: Monitor blood sugars (7) Compression fracture of L3 lumbar vertebra ICD Codes: S32.030A - Wedge compression fracture of third lumbar vertebra, initial encounter for closed fracture Status: Acute Plan: Supportive care and pain control Problem Qualifiers (1) Acute renal failure: Qualified Codes: N17.9 - Acute kidney failure, unspecified (2) UTI (urinary tract infection): Magda Mcbride MD Jun 15, 2017 11:47
[2017-06-15 13:32] LABS: BLOOD GAS BASE EXCESS 6.4 mmol/L (-2-2); BLOOD GAS CARBOXYHEMOGLOBIN 0.4 % (0-4); BLOOD GAS HCO3 31 mmol/L (22-26); BLOOD GAS METHEMOGLOBIN 1.4 % (0-2); BLOOD GAS O2 HGB SATURATION 93 % (90-100); BLOOD GAS OXYGEN CONTENT 13.4 Vol % (12.0-20.0); BLOOD GAS PCO2 51 mmHg (38-42); BLOOD GAS PO2 81 mmHg (61-120); BLOOD GAS TOTAL HGB 10.2 G/DL (12.0-16.0); TEMP CORR TO 98.6
[2017-06-15 13:33] LABS: CRITICAL VALUE YES; DRAW SITE RT RADIAL; FIO2 30 %; NUMBER OF ARTERIAL PUNCTURES 1; OXYGEN DEVICE VENTILATOR; STAT NO; ULNAR PULSE PRESENT; VENT SETTINGS CPAP5/PS5
--- NOTE | 2017-06-15 13:53 | HHI.CCPN ---
Subjective Remarks/Hospital Course Patient is a 56-year-old female patient past medical history significant for type 2 diabetes, hypertension, dyslipidemia, history of chronic back pains secondary to L3 compression fracture, hypothyroidism, presented to the ER today with excruciating back pain, 9 out of 10. She denied any constitutional symptoms including fever chills nausea vomiting diarrhea. According to Dr. Navarro patient was a very poor historian and was encephalopathic. Patient admitted to the nursing staff taking IV Dilaudid yesterday. Patient was initially given 2 L of normal saline boluses for severe tachycardia and borderline hypotension. Her Lab work came back showing acute renal failure creatinine of 6.5, BUN 70 and potassium of 7.5, and leukocytosis with white count of 17.8 with Left shift. UA showed evidence of UTI. ABG showed a pH of 7.09 PCO2 of 38 and PO2 of 70 and base excess was -70. A Irwin catheter was placed and it shows cloudy urine. Patient received treatment for hyperkalemia man with 2 A of bicarbonate , calcium gluconate 2 g, DuoNeb breathing treatments, IV insulin 6 units followed by dextrose, and I have ordered Kayexalate also. Dr. Mcbride had been contacted personally by myself regarding possible dialysis if hyperkalemia not improving. Cultures have been sent and patient had been placed on vancomycin and Zosyn. CT of the head and MRI of the T and L-spine was ordered due to altered mentation and severe back pain. I evaluated the patient in the emergency department. Patient had been just intubated for worsening lethargy and altered mentation and severe metabolic acidosis. On my exam patient is under neuromuscular blockade and this limits limits exam. Her blood pressure is 80 systolic, 2 additional limited normal saline boluses, 2 more grams of bicarbonate, and Levophed to be started. I increase her respiratory rate on the vent from 12 to18 and increase the tidal volume to 600 to attempt to normalize pH. 06/15: Off sedation opens eyes, following commands. Hyperkalemia has resolved urine output 2 L in 24 hours BUN 51 creatinine 3. WBC count has improved 7.8, hemodynamically stable Objective Vital Signs Date Time Temp Pulse Resp B/P (MAP) Pulse Ox O2 Delivery O2 Flow Rate FiO2 06/15/17 12:25 30 06/15/17 12:23 98 11/30/17 12:00 89 06/15/17 12:00 99.8 23 134/70 (91) 06/14/17 15:00 Auto-Vent Intake and Output 06/15/17 06/15/17 06/16/17 08:00 16:00 00:00 Intake Total 2250 ml 155 ml Output Total 1350 ml Balance 900 ml 155 ml Result Diagram: 06/15/17 0433 06/15/17 0434 Other Results Laboratory Tests Test 06/14/17 15:08 06/15/17 13:20 Blood Gas Puncture Site LT RADIAL RT RADIAL Blood Gas Patient Temperature 37.0 98.6 Blood Gas HCO3 16 mmol/L (22-26) 31 mmol/L (22-26) Blood Gas Base Excess -9.9 mmol/L (-2-2) 6.4 mmol/L (-2-2) Blood Gas Oxygen Saturation 92 % (90-100) 93 % (90-100) Arterial Blood pH 7.26 (7.380-7.420) 7.40 (7.380-7.420) Arterial Blood Partial Pressure CO2 37 mmHg (38-42) 51 mmHg (38-42) Arterial Blood Partial Pressure O2 70 mmHG (61-120) 81 mmHg (61-120) Arterial Blood Oxygen Content 10.0 Vol % (12.0-20.0) 13.4 Vol % (12.0-20.0) Arterial Blood Carboxyhemoglobin 0.8 % (0-4) 0.4 % (0-4) Arterial Blood Methemoglobin 1.3 % (0-2) 1.4 % (0-2) Blood Gas Hemoglobin 7.7 G/DL (12.0-16.0) 10.2 G/DL (12.0-16.0) Oxygen Delivery Device VENTILATOR VENTILATOR Blood Gas Ventilator Setting AC/RR20/VT600/PEEP5 CPAP5/PS5 Blood Gas Inspired Oxygen 50 % 30 % Imaging CT of the head no acute findings on my review Objective Remarks GENERAL: Well-developed middle age female patient who is intubated SKIN: Warm/dry. Abrasion to the right knee. HEAD: Atraumatic. Normocephalic. EYES: Pupils equal and round. No scleral icterus. No injection or drainage. ENT: No nasal bleeding or discharge. ETT in place NECK: Trachea midline. No JVD. CARDIOVASCULAR: Regular rate and rhythm. Grade 2 systolic murmur heard in the apical region and left sternal border RESPIRATORY: Intubated sedated. Breath sounds equal bilaterally, with equal chest rise. GASTROINTESTINAL: Abdomen soft, non-tender, nondistended. Hepatic and splenic margins not palpable. : Irwin with 100 ml dark urine BACK: No CVA tenderness. No rash. Exam limited due to sedation and neuromuscular paralysis MUSCULOSKELETAL: No edema. NEUROLOGICAL: Intubated opens eyes, follows commands. No FND Urinary Catheter: Yes Assessment to: Continue A/P Assessment and Plan NEURO: Acute encephalopathy Possible IV drug use L3 compression fracture - Encephalopathy most likely metabolic from severe sepsis - CT of the head negative for any acute findings, urine drug screen is pending - Versed and fentanyl for sedation and ventilator synchrony - N/S Dr. Fishman consulted for worsening L3 compression fracture-he wants to reevaluate once the patient is extubated RESP: Acute respiratory failure Severe metabolic acidosis-resolved - Intubated for severe acidosis and her failure to protect airway, SBT with probable extubation today - DuoNeb breathing treatments, F/u Sputum culture CV: Shock -resolved - s/p Normal saline IV fluids 4L bolus and D5/bicarb at 150 ml per hour- DC today - Start NS 75 ml per hour - 2d echo, to evaluate murmur, r/o endocarditis GI: - Nothing by mouth, IV Protonix : Acute kidney failure Severe hyperkalemia - Monitor renal function closely. Irwin catheter. Renal function improving with aggressive hydration - Received calcium gluconate, IV bicarbonate, DuoNeb breathing treatments, IV insulin/dextrose for severe hyperkalemia ID: Septic shock -resolved UTI - Blood culture urine culture and sputum culture - IV vancomycin, Zosyn. - Urine cx GNR HEME: Leukocytosis secondary to sepsis - Monitor CBC, CMP, coags ENDO: - See treatment for hyperkalemia above PROPH: - Bilateral lower extremity SCDs. Heparin sq 5000 sq q12, IV Protonix LINES: - Utilize peripheral IVs, central line if needed Level 3 Remains critically ill with multiorgan involvement but at this time multiorgan failure seems to be improving Mary Kunz MD Jun 15, 2017 13:53
[2017-06-15] MEDS: SODIUM CHLOR 0.9% 1000 ML INJ 1,000 ML IV SCH (14:14)
--- NOTE | 2017-06-15 15:49 | ECHRPT ---
Indication: endocarditis CONCLUSIONS The left ventricular systolic function is low normal with an estimated ejection fraction in the rang e of 50- 55%. Normal left ventricular size. Trace mitral valve regurgitation. No aortic valve regurgitation. No aortic valve stenosis. There is mild tricuspid valve regurgitation. The pulmonary valve is not well visualized. No evidence of endocarditis BP: / HR: Rhythm: MEASUREMENTS (Male / Female) Normal Values Technical Quality:Fair 2D ECHO LV Diastolic Diameter PLAX 4.8 cm 4.2 - 5.9 / 3.9 - 5.3 cm LV Systolic Diameter PLAX 3.7 cm IVS Diastolic Thickness 0.8 cm 0.6 - 1.0 / 0.6 - 0.9 cm LVPW Diastolic Thickness 0.8 cm 0.6 - 1.0 / 0.6 - 0.9 cm LV Relative Wall Thickness 0.3 RV Internal Dim ED PLAX 2.1 cm M-MODE Aortic Root Diameter MM 3.6 cm LA Systolic Diameter MM 2.8 cm LA Ao Ratio MM 0.8 AV Cusp Separation MM 1.8 cm DOPPLER Mitral E Point Velocity 63.7 cm/s Mitral A Point Velocity 67.1 cm/s Mitral E to A Ratio 0.9 LV E' Lateral Velocity 6.7 cm/s Mitral E to LV E' Lateral Ratio 9.5 LV E' Septal Velocity 9.5 cm/s Mitral E to LV E' Septal Ratio 6.7 FINDINGS LEFT VENTRICLE The left ventricular systolic function is low normal with an estimated ejection fraction in the rang e of 50- 55%. Normal left ventricular size. RIGHT VENTRICLE Normal right ventricular size and systolic function. LEFT ATRIUM The left atrial size is normal. RIGHT ATRIUM The right atrial size is normal. ATRIAL SEPTUM Normal atrial septal thickness without atrial level shunting by limited color doppler interrogation. AORTA The aortic root and proximal ascending aorta are normal in size on limited imaging. MITRAL VALVE Trace mitral valve regurgitation. Structurally normal mitral valve. AORTIC VALVE Trileaflet aortic valve. No aortic valve regurgitation. No aortic valve stenosis. TRICUSPID VALVE There is mild tricuspid valve regurgitation. Structurally normal tricuspid valve. PULMONARY VALVE The pulmonary valve is not well visualized. VESSELS The inferior vena cava is normal in size. PERICARDIUM No pericardial effusion. Toni Espinoza MD (Electronically Signed) Final Date:15 June 2017 15:48
[2017-06-16] VITALS (14 sets, daily range): BP systolic 134–180; BP diastolic 70–91; PULSE 55–87; RESP 23–33; TEMP 98–99.3; O2SAT 87–97
[2017-06-16] MEDS: RESP: ALBUTEROL 2.5 MG/IPRATROPIUM 0.5 MG NEB (SCH) INH ×6 (00:34→20:45)
[2017-06-16] MEDS: SODIUM CHLOR 0.9% 1000 ML INJ 1,000 ML IV SCH ×2 (03:21→16:40)
[2017-06-16] MEDS: PIPERACIL-TAZO 2.25 GM PREMIX 50 ML IV SCH ×2 (03:22→09:11)
--- NOTE | 2017-06-16 03:46 | RADRPT ---
EXAM DATE/TIME: 06/16/2017 02:49 [facility] COMPARISON: CHEST SINGLE AP, June 14, 2017, 13:37. INDICATIONS : Shortness of breath MEDICAL HISTORY : Cardiovascular disease. Hypertension SURGICAL HISTORY : Hysterectomy. ENCOUNTER: Subsequent ACUITY: 3 days PAIN SCORE: 7/10 LOCATION: Bilateral chest FINDINGS: Portable AP view of the chest demonstrates a normal-sized cardiac silhouette. Multiple EKG lines over lie the patient. There is airspace consolidation at the left lung base. No pneumothorax or pleural ef fusion is identified. CONCLUSION: There is new airspace consolidation at the left lung base. Ze Torres MD on June 16, 2017 at 3:43 Board Certified Radiologist. This report was verified electronically.
[2017-06-16 06:04] LABS: AUTOMATED NEUTROPHIL # 5.9 TH/MM3 (1.8-7.7); BASOPHIL % 0.1 % (0.0-2.0); EOSINOPHIL % 0.5 % (0.0-4.0); HEMO FLAGS DIFF FINAL; LYMPH % 17.5 % (9.0-44.0); LYMPHOCYTE # 1.5 TH/MM3 (1.0-4.8); MEAN CELL VOLUME 91.2 FL (80.0-100.0); MEAN CORPUSCULAR HEMOGLOBIN 29.9 PG (27.0-34.0); MEAN CORPUSCULAR HGB CONC 32.8 % (32.0-36.0); MONO % 11.1 % (0.0-8.0); NEUT % 70.8 % (16.0-70.0); PLATELET COUNT 205 TH/MM3 (150-450); RED BLOOD COUNT 2.41 MIL/MM3 (4.00-5.30); RED CELL DISTRIBUTION WIDTH 14.9 % (11.6-17.2); WHITE BLOOD COUNT 8.4 TH/MM3 (4.0-11.0)
[2017-06-16 06:51] LABS: BICARBONATE 29.8 MEQ/L (21.0-32.0); MAGNESIUM 1.1 MG/DL (1.5-2.5); TOTAL BILIRUBIN ADULT 0.3 MG/DL (0.2-1.0)
[2017-06-16 06:54] LABS: CALCIUM-PROTEIN CORRECTED 7.2 MG/DL (8.5-10.1)
[2017-06-16 06:55] LABS: POTASSIUM 2.9 MEQ/L (3.5-5.1)
[2017-06-16] MEDS: DOCUSATE SODIUM 50 MG/SENNA 8.6 MG TAB PO SCH ×2 (07:40→21:00)
[2017-06-16] MEDS: CHLORHEXIDINE 0.12% (ORAL KIT) 15 ML CUP MT SCH ×2 (07:40→20:00)
[2017-06-16] MEDS: PANTOPRAZOLE SODIUM 40 MG VIAL IV PUSH SCH (07:40)
[2017-06-16] MEDS: SODIUM CHLORIDE 0.9% FLUSH 10 ML FLUSH IV FLUSH SCH ×2 (07:40→21:18)
[2017-06-16] MEDS: HEPARIN SODIUM - SQ 10,000 UNITS/ML VIAL SQ SCH ×2 (07:40→21:19)
[2017-06-16] MEDS ORDERED: POTASSIUM CHLORIDE 20 MEQ CONTROLLED RELEASE TAB PO ONE (09:30)
[2017-06-16] MEDS: MAGNESIUM SULFATE 1 GM PREMIX 100 ML IV SCH ×3 (10:21→13:28)
--- NOTE | 2017-06-16 13:31 | HHI.NPPN ---
Subjective History of Present Illness pt extubated Objective Data Data 06/16/17 06/17/17 19:00 07:00 Intake Total 150 ml Balance 150 ml IV Total 150 ml # Bowel Movements 1 Vital Signs Date Time Temp Pulse Resp B/P (MAP) Pulse Ox O2 Delivery O2 Flow Rate FiO2 06/16/17 10:11 92 Nasal Cannula 06/16/17 10:00 73 06/16/17 08:00 85 06/16/17 08:00 98.2 85 33 160/70 (100) 93 06/16/17 07:50 89 Simple Mask 12.00 06/16/17 07:49 94 Simple Mask 11.00 06/16/17 07:00 92 Nasal Cannula 2.00 06/16/17 06:00 55 06/16/17 04:00 98.7 60 26 146/71 (96) 94 06/16/17 04:00 74 06/16/17 02:00 74 06/16/17 00:00 87 06/16/17 00:00 98.6 87 23 134/76 (95) 87 06/15/17 22:00 73 06/15/17 20:34 93 Nasal Cannula 2.00 06/15/17 20:00 98.0 73 25 146/74 (98) 97 06/15/17 20:00 73 06/15/17 19:00 97 Nasal Cannula 2.00 06/15/17 18:30 77 18 139/66 (90) 97 06/15/17 18:00 79 25 139/67 (91) 96 06/15/17 18:00 79 06/15/17 17:30 80 20 138/70 (92) 96 06/15/17 17:00 86 32 138/75 (96) 97 06/15/17 16:30 87 27 136/76 (96) 96 06/15/17 16:23 97 Nasal Cannula 2.00 06/15/17 16:00 98.8 90 30 139/67 (91) 96 06/15/17 16:00 90 06/15/17 15:30 82 24 137/63 (87) 95 06/15/17 15:00 87 27 128/78 (95) 94 06/15/17 14:31 91 22 143/67 (92) 95 06/15/17 14:12 95 Nasal Cannula 2.00 06/15/17 14:00 97 25 134/69 (90) 94 06/15/17 14:00 97 06/15/17 13:55 96 Nasal Cannula 2 06/15/17 13:55 96 Nasal Cannula 2.00 06/15/17 13:30 92 21 137/71 (93) 95 -: 06/16/17 0501 06/16/17 0501 Physical Exam General Appearance: Well Developed, Well Nourished Eyes Eye Exam: Pupils Equal Neck Neck Exam: Neck Supple Pulmonary Resp Exam: Clear Bilaterally, Breath Sounds Equal Cardiology CV Exam: Regular, Normal Sinus Rhythm Gastrointestinal/Abdomen GI Exam: Soft, Non-Tender, Bowel Sounds Present Extremeties Extremities Exam: No Edema Assessment/Plan Problem List: (1) Acute renal failure ICD Codes: N17.9 - Acute kidney failure, unspecified Status: Acute Plan: ARF improved awake and alert on O2 pre renal azotemia K low replaced Nephrology to follow as needed (2) Septic shock ICD Codes: A41.9 - Sepsis, unspecified organism; R65.21 - Severe sepsis with septic shock Plan: Likely urosepsis (3) UTI (urinary tract infection) ICD Codes: N39.0 - Urinary tract infection, site not specified Status: Acute Plan: Recurrent infection she is started on Zosyn Klebsiella (4) Acute encephalopathy ICD Codes: G93.40 - Encephalopathy, unspecified Status: Resolved (5) Metabolic acidosis ICD Codes: E87.2 - Acidosis Status: Resolved Plan: On sodium bicarbonate (6) Diabetes mellitus, type 2 ICD Codes: E11.9 - Type 2 diabetes mellitus without complications Status: Chronic Plan: Monitor blood sugars (7) Compression fracture of L3 lumbar vertebra ICD Codes: S32.030A - Wedge compression fracture of third lumbar vertebra, initial encounter for closed fracture Status: Acute Plan: Supportive care and pain control Problem Qualifiers (1) Acute renal failure: Qualified Codes: N17.9 - Acute kidney failure, unspecified (2) UTI (urinary tract infection): (3) Diabetes mellitus, type 2: Magda Mcbride MD Jun 16, 2017 13:31
--- NOTE | 2017-06-16 14:11 | HHI.CCPN ---
Subjective Remarks/Hospital Course Patient is a 56-year-old female patient past medical history significant for type 2 diabetes, hypertension, dyslipidemia, history of chronic back pains secondary to L3 compression fracture, hypothyroidism, presented to the ER today with excruciating back pain, 9 out of 10. She denied any constitutional symptoms including fever chills nausea vomiting diarrhea. According to Dr. Navarro patient was a very poor historian and was encephalopathic. Patient admitted to the nursing staff taking IV Dilaudid yesterday. Patient was initially given 2 L of normal saline boluses for severe tachycardia and borderline hypotension. Her Lab work came back showing acute renal failure creatinine of 6.5, BUN 70 and potassium of 7.5, and leukocytosis with white count of 17.8 with Left shift. UA showed evidence of UTI. ABG showed a pH of 7.09 PCO2 of 38 and PO2 of 70 and base excess was -70. A Irwin catheter was placed and it shows cloudy urine. Patient received treatment for hyperkalemia man with 2 A of bicarbonate , calcium gluconate 2 g, DuoNeb breathing treatments, IV insulin 6 units followed by dextrose, and I have ordered Kayexalate also. Dr. Mcbride had been contacted personally by myself regarding possible dialysis if hyperkalemia not improving. Cultures have been sent and patient had been placed on vancomycin and Zosyn. CT of the head and MRI of the T and L-spine was ordered due to altered mentation and severe back pain. I evaluated the patient in the emergency department. Patient had been just intubated for worsening lethargy and altered mentation and severe metabolic acidosis. On my exam patient is under neuromuscular blockade and this limits limits exam. Her blood pressure is 80 systolic, 2 additional limited normal saline boluses, 2 more grams of bicarbonate, and Levophed to be started. I increase her respiratory rate on the vent from 12 to18 and increase the tidal volume to 600 to attempt to normalize pH. 30: Off sedation opens eyes, following commands. Hyperkalemia has resolved urine output 2 L in 24 hours BUN 51 creatinine 3. WBC count has improved 7.8, hemodynamically stable Subjective 06/16: Currently resting in bed on nasal cannula at 4 L. Serum creatinine is normalizing. Off all vasopressors. Requesting pain medications Objective Vital Signs Date Time Temp Pulse Resp B/P (MAP) Pulse Ox O2 Delivery O2 Flow Rate FiO2 12/1/17 12:00 98.0 73 32 158/86 (110) 94 06/16/17 10:11 Nasal Cannula 06/16/17 07:50 12.00 06/15/17 12:25 30 Intake and Output 06/16/17 06/16/17 06/17/17 08:00 16:00 00:00 Intake Total 1290 ml 250 ml Output Total 950 ml Balance 340 ml 250 ml Result Diagram: 06/16/17 0501 06/16/17 0501 Other Results Microbiology Date/Time Source Procedure Growth Status 06/14/17 10:36 Blood Peripheral Aerobic Blood Culture - Preliminary NO GROWTH IN 2 DAYS Resulted 06/14/17 10:36 Blood Peripheral Anaerobic Blood Culture - Preliminary NO GROWTH IN 2 DAYS Resulted 06/15/17 08:11 Sputum Endotracheal Gram Stain - Final Resulted 06/15/17 08:11 Sputum Endotracheal Sputum Culture - Preliminary MODERATE GROWTH NORMAL RESPIRATORY FL... Resulted 06/14/17 12:00 Urine Catheterized Urine Urine Culture - Final Klebsiella Pneumoniae Complete Imaging Last Impressions Chest X-Ray 06/16/17 0600 Signed Impressions: Service Date/Time: Friday, June 16, 2017 02:49 - CONCLUSION: There is new airspace consolidation at the left lung base. Ze Torres MD Head CT 06/14/17 1137 Signed Impressions: Service Date/Time: Wednesday, June 14, 2017 13:57 - CONCLUSION: Normal examination. Allan Joyce Jr., MD Thoracic Spine MRI 06/14/17 1034 Signed Impressions: Service Date/Time: Wednesday, June 14, 2017 14:21 - CONCLUSION: Interval decompressive surgery in the mid thoracic region. Stable appearance of chronic cord deformity and syrinx formation. No other definite acute findings. Ze Crocker MD Lumbar Spine MRI 06/14/17 1034 Signed Impressions: Service Date/Time: Wednesday, June 14, 2017 14:21 - CONCLUSION: 1. Worsening compression fracture involving the L3 vertebral body. There is now 50%% loss of height in L5 millimeters of retropulsion of the posterior cortical margin with resulting central canal stenosis. 2. Linear edema paralleling the L5 inferior endplate without appreciable loss of height. This likely relates to an occult compression deformity. 3. Multilevel degenerative changes as detailed above. Allan Joyce Jr., MD Renal Ultrasound 06/14/17 0000 Signed Impressions: Service Date/Time: Wednesday, June 14, 2017 16:32 - CONCLUSION: No evidence of hydronephrosis Ze Crocker MD Objective Remarks GENERAL: 56-year-old female, resting in bed in no acute distress on nasal cannula SKIN: Warm/dry. A Jesus bandage to left upper extremity, Abrasion to the right knee. HEAD: Atraumatic. Normocephalic. EYES: Pupils equal and round about 4 mm bilaterally and reactive. No scleral icterus. No injection or drainage. ENT: No nasal bleeding or discharge. Oropharynx without erythema or exudates NECK: Trachea midline. No JVD. CARDIOVASCULAR: Regular rate and rhythm. 2/ 6 systolic murmur heard in the apical region and left sternal border RESPIRATORY: Essentially clear to auscultation bilaterally without wheezes rales or rhonchi GASTROINTESTINAL: Abdomen soft, non-tender, nondistended. Hypoactive bowel sounds : Catheter in place with urine MUSCULOSKELETAL: No significant peripheral edema. NEUROLOGICAL: Utilize 2 through 12 grossly intact. Strength is equal symmetric. Normal sensation. Urinary Catheter: Yes Assessment to: Remove A/P Assessment and Plan NEURO/PSYCH: Acute encephalopathy History of polysubstance abuse including THC, cocaine and hydromorphone L3 compression fracture - Encephalopathy most likely metabolic from severe sepsis and resolving - CT of the head negative for any acute findings, urine drug screen revealed opiates - Morphine sulfate 1-2 mg every 2 hours. Pain - N/S Dr. Fishman consulted for worsening L3 compression fracture-he wants to reevaluate once the patient is extubated L3 compression fracture with 5 mm retropulsed into the posterior central canal. Home medications include bupropion extended release 150 daily, sertraline 200 mg daily, trazodone 150 mg a night, quetiapine 50 mill grams at night and gabapentin 600 mg 3 times a day. Restart bupropion 75 twice a day and sertraline at 50 mill grams daily. Methocarbamol 500 mg 3 times a day been held RESP: Acute respiratory failure resolved -Nasal cannula to maintain saturations greater than equal to 92% Incentive spirometry while awake Albuterol/ipratropium aerosols every 4 hours of albuterol aerosols every 2 hours. Dyspnea CV: Shock -resolved History of hypertension History dyslipidemia continue NS 75 ml per hour - 2d echo, revealed EF 50-55%. No vegetations Holding home medications lisinopril 20 mg daily and HCTZ 25 mg daily light of acute kidney injury Holding lovastatin 20 mg daily and gemfibrozil 600 mg twice a day. Resume when clinically indicated As needed hydralazine/Nitropaste for hypertension GI: Hepatitis C ADA diet Pantoprazole for GI prophylaxis Docusate senna/senna for bowel regimen /FEN/Renal: Acute kidney failure in the setting of chronic kidney disease stage III Hypokalemia Hypo-magnesium Hypocalcemia - Monitor renal function closely. Irwin catheter. Renal function improving with aggressive hydration -Creatinine currently 1.17. Followed by Dr. Mcbride Received 80 mEq potassium chloride, 3 g mag sulfate and 1 g calcium gluconate. Recheck at 1800 ID: Septic shock -resolved Klebsiella pneumoniae UTI -06/14 Blood culture urine culture and sputum culture positive for Klebsiella pneumoniae and urine only. Rest negative - IV piperacillin/tazobactam 4.5 g IV every 6 hours/renally dosed. HEME: Leukocytosis secondary to sepsis - Monitor CBC, CMP, coags ENDO: Diabetes mellitus Metformin 500 twice a day in light of acute kidney injury Sliding-scale insulin with Accu-Cheks before meals/at bedtime to maintain euglycemia PROPH: - Bilateral lower extremity SCDs. Heparin sq 5000 sq q12, pantoprazole LINES: - Utilize peripheral IVs, central line if needed Level 2 Patient is stable from a critical care medicine standpoint. Assign care to hospitalist in a.m. /2. Haroldo Mcdowell MD Jun 16, 2017 14:11
[2017-06-16] MEDS ORDERED: NITROGLYCERIN 2% OINT 1 GM PACKET TOPICAL PRN (15:00)
[2017-06-16] MEDS: PIPERACIL-TAZO 4.5 GM PREMIX 100 ML IV SCH ×2 (16:52→21:19)
[2017-06-16] MEDS ORDERED: CALCIUM GLUCONATE INJ 1 GM in SODIUM CHLORIDE 0.9% INJ 100 ML IV ONE (17:00)
[2017-06-16] MEDS: MORPHINE SULFATE 4 MG/ML INJ IV PRN ×2 (17:05→21:19)
[2017-06-16] MEDS ORDERED: MORPHINE SULFATE 4 MG/ML INJ IV PUSH PRN (17:15)
[2017-06-16] MEDS: buPROPion HCL 75 MG TAB PO SCH (21:18)
[2017-06-16] MEDS: CHLORHEXIDINE GLUCONATE 2 % 1 PACK (2 CLOTHS) TOP SCH (21:19)
[2017-06-16 23:17] LABS: MAGNESIUM 1.6 MG/DL (1.5-2.5); POTASSIUM 3.7 MEQ/L (3.5-5.1)
[2017-06-17] VITALS (23 sets, daily range): BP systolic 139–169; BP diastolic 67–99; PULSE 72–101; RESP 20–37; TEMP 98.1–99.1; O2SAT 92–100
[2017-06-17] MEDS: RESP: ALBUTEROL 2.5 MG/IPRATROPIUM 0.5 MG NEB (SCH) INH ×7 (00:09→23:04)
[2017-06-17] MEDS: hydrALAZINE HCL 20 MG/ML VIAL IV PUSH PRN ×2 (00:11→01:35)
[2017-06-17] MEDS: MORPHINE SULFATE 4 MG/ML INJ IV PRN ×7 (00:28→21:33)
[2017-06-17] MEDS: SODIUM CHLOR 0.9% 1000 ML INJ 1,000 ML IV SCH (01:35)
[2017-06-17] MEDS: RESP: ALBUTEROL 2.5 MG/3 ML NEB (PRN) NEB (02:09)
[2017-06-17] MEDS ORDERED: VANCOMYCIN INJ 1,000 MG in SODIUM CHLOR 0.9% 250 ML INJ 250 ML IV ONE (02:15)
[2017-06-17] MEDS ORDERED: LORazepam 2 MG/ML VIAL ONE (02:18)
[2017-06-17] MEDS ORDERED: LORazepam 2 MG/ML VIAL IV STA (02:40)
[2017-06-17] MEDS ORDERED: MORPHINE SULFATE 4 MG/ML INJ IV STA (02:41)
[2017-06-17] MEDS: AZITHROMYCIN INJ 500 MG in SODIUM CHLOR 0.9% 250 ML INJ 250 ML IV SCH (03:00)
--- NOTE | 2017-06-17 03:11 | RADRPT ---
EXAM DATE/TIME: 06/17/2017 02:31 [facility] COMPARISON: CHEST SINGLE AP, June 16, 2017, 2:49. INDICATIONS : Shortness of breath. MEDICAL HISTORY : Cardiovascular disease. Hypertension SURGICAL HISTORY : Hysterectomy. ENCOUNTER: Subsequent ACUITY: 4 - 6 days PAIN SCORE: 0/10 LOCATION: Bilateral chest FINDINGS: Portable AP view of the chest demonstrates a normal-sized cardiac silhouette. There is bilateral lowe r lung zone airspace consolidation, left greater than right with obscuration of the left hemidiaphrag m. No pneumothorax is identified. The bones and soft tissues demonstrate no acute finding. CONCLUSION: Increased bilateral lower lung zone airspace consolidation with likely left pleural effusion. Ze Torres MD on June 17, 2017 at 3:09 Board Certified Radiologist. This report was verified electronically.
[2017-06-17] MEDS: PIPERACIL-TAZO 4.5 GM PREMIX 100 ML IV SCH ×4 (04:30→22:47)
[2017-06-17 05:39] LABS: ALKALINE PHOSPHATASE 92 U/L (45-117); ALT (GPT) 29 U/L (10-53); ANION GAP 9 MEQ/L (5-15); AST (GOT) 39 U/L (15-37); BICARBONATE 27.1 MEQ/L (21.0-32.0); BLOOD UREA NITROGEN 17 MG/DL (7-18); CHLORIDE 109 MEQ/L (98-107); GLOMERULAR FILTRATION RATE 81 ML/MIN (>89); MAGNESIUM 1.7 MG/DL (1.5-2.5); POTASSIUM 3.4 MEQ/L (3.5-5.1); SODIUM (NA) 145 MEQ/L (136-145); TOTAL BILIRUBIN ADULT 0.4 MG/DL (0.2-1.0)
[2017-06-17 05:40] LABS: AUTOMATED NEUTROPHIL # 12.2 TH/MM3 (1.8-7.7); BASOPHIL % 0.1 % (0.0-2.0); HEMATOCRIT 23.5 % (35.0-46.0); HEMO FLAGS DIFF FINAL; LYMPH % 9.2 % (9.0-44.0); LYMPHOCYTE # 1.3 TH/MM3 (1.0-4.8); MEAN CORPUSCULAR HEMOGLOBIN 30.1 PG (27.0-34.0); MEAN CORPUSCULAR HGB CONC 33.1 % (32.0-36.0); MONO % 7.6 % (0.0-8.0); NEUT % 83.1 % (16.0-70.0); PLATELET COUNT 255 TH/MM3 (150-450); RED BLOOD COUNT 2.58 MIL/MM3 (4.00-5.30); RED CELL DISTRIBUTION WIDTH 14.1 % (11.6-17.2); WHITE BLOOD COUNT 14.6 TH/MM3 (4.0-11.0)
[2017-06-17] MEDS: POTASSIUM CHLOR 10 MEQ PREMIX 100 ML IV SCH ×3 (06:30→08:30)
[2017-06-17] MEDS ORDERED: FUROSEMIDE 40 MG/4 ML VIAL IV PUSH ONE (06:30)
[2017-06-17] MEDS ORDERED: POTASSIUM CHLOR 40 MEQ PREMIX 100 ML IV PRN ×2 (06:45)
[2017-06-17] MEDS ORDERED: POTASSIUM PHOSPHATE MONOBASIC 500 MG TAB PO PRN (06:45)
[2017-06-17] MEDS ORDERED: POTASSIUM PHOSPHATE INJ 15 MMOL in SODIUM CHLORIDE 0.9% INJ 150 ML IV ONE (06:45)
[2017-06-17] MEDS ORDERED: POTASSIUM CHLOR 20 MEQ PREMIX 100 ML IV PRN ×2 (06:45)
[2017-06-17] MEDS ORDERED: SODIUM PHOSPHATE INJ 30 MMOL in SODIUM CHLOR 0.9% 250 ML INJ 240 ML IV PRN (06:45)
[2017-06-17] MEDS ORDERED: POTASSIUM PHOSPHATE INJ 30 MMOL in SODIUM CHLOR 0.9% 250 ML INJ 250 ML IV PRN (06:45)
[2017-06-17] MEDS ORDERED: MAGNESIUM SULFATE INJ 4 GM in SODIUM CHLORIDE 0.9% INJ 92 ML IV PRN (06:45)
[2017-06-17] MEDS ORDERED: POTASSIUM CHLORIDE 25 MEQ EFFERVESCENT TAB PO PRN (06:45)
[2017-06-17] MEDS ORDERED: MAGNESIUM SULFATE INJ 2 GM in SODIUM CHLORIDE 0.9% INJ 96 ML IV PRN (06:45)
[2017-06-17] MEDS ORDERED: MAGNESIUM OXIDE 400 MG TAB PO PRN (06:45)
[2017-06-17] MEDS ORDERED: POTASSIUM PHOSPHATE MONOBASIC 500 MG TAB PO/TUBE PRN (06:45)
[2017-06-17] MEDS: MAGNESIUM SULFATE 1 GM PREMIX 100 ML IV SCH ×2 (06:51→08:39)
[2017-06-17] MEDS: CHLORHEXIDINE 0.12% (ORAL KIT) 15 ML CUP MT SCH ×2 (08:00→20:00)
[2017-06-17 08:33] LABS: BLOOD GAS BASE EXCESS 4.9 mmol/L (-2-2); BLOOD GAS CARBOXYHEMOGLOBIN 0.8 % (0-4); BLOOD GAS HCO3 28 mmol/L (22-26); BLOOD GAS METHEMOGLOBIN 1.8 % (0-2); BLOOD GAS O2 HGB SATURATION 94 % (90-100); BLOOD GAS OXYGEN CONTENT 9.8 Vol % (12.0-20.0); BLOOD GAS PCO2 35 mmHg (38-42); BLOOD GAS PO2 93 mmHg (61-120); BLOOD GAS TOTAL HGB 7.3 G/DL (12.0-16.0); TEMP CORR TO 98.6
[2017-06-17 08:36] LABS: CRITICAL VALUE YES; DRAW SITE RT RADIAL; FIO2 35 %; NUMBER OF ARTERIAL PUNCTURES 1; OXYGEN DEVICE BiPAP; STAT NO; ULNAR PULSE PRESENT; VENT SETTINGS IPAP12/EPAP6
[2017-06-17] MEDS: buPROPion HCL 75 MG TAB PO SCH ×2 (08:37→21:32)
[2017-06-17] MEDS: HEPARIN SODIUM - SQ 10,000 UNITS/ML VIAL SQ SCH ×2 (08:37→21:32)
[2017-06-17] MEDS: PANTOPRAZOLE SOD 40 MG DELAYED RELEASE TAB PO SCH (08:37)
[2017-06-17] MEDS: DOCUSATE SODIUM 50 MG/SENNA 8.6 MG TAB PO SCH ×2 (08:38→21:00)
[2017-06-17] MEDS: SODIUM CHLORIDE 0.9% FLUSH 10 ML FLUSH IV FLUSH SCH ×2 (08:38→21:33)
[2017-06-17] MEDS ORDERED: SERTRALINE HCL 50 MG TAB PO SCH (09:00)
--- NOTE | 2017-06-17 12:24 | HHI.CCPN ---
Subjective Remarks/Hospital Course Patient is a 56-year-old female patient past medical history significant for type 2 diabetes, hypertension, dyslipidemia, history of chronic back pains secondary to L3 compression fracture, hypothyroidism, presented to the ER today with excruciating back pain, 9 out of 10. She denied any constitutional symptoms including fever chills nausea vomiting diarrhea. According to Dr. Navarro patient was a very poor historian and was encephalopathic. Patient admitted to the nursing staff taking IV Dilaudid yesterday. Patient was initially given 2 L of normal saline boluses for severe tachycardia and borderline hypotension. Her Lab work came back showing acute renal failure creatinine of 6.5, BUN 70 and potassium of 7.5, and leukocytosis with white count of 17.8 with Left shift. UA showed evidence of UTI. ABG showed a pH of 7.09 PCO2 of 38 and PO2 of 70 and base excess was -70. A Irwin catheter was placed and it shows cloudy urine. Patient received treatment for hyperkalemia man with 2 A of bicarbonate , calcium gluconate 2 g, DuoNeb breathing treatments, IV insulin 6 units followed by dextrose, and I have ordered Kayexalate also. Dr. Mcbride had been contacted personally by myself regarding possible dialysis if hyperkalemia not improving. Cultures have been sent and patient had been placed on vancomycin and Zosyn. CT of the head and MRI of the T and L-spine was ordered due to altered mentation and severe back pain. I evaluated the patient in the emergency department. Patient had been just intubated for worsening lethargy and altered mentation and severe metabolic acidosis. On my exam patient is under neuromuscular blockade and this limits limits exam. Her blood pressure is 80 systolic, 2 additional limited normal saline boluses, 2 more grams of bicarbonate, and Levophed to be started. I increase her respiratory rate on the vent from 12 to18 and increase the tidal volume to 600 to attempt to normalize pH. 06/15: Off sedation opens eyes, following commands. Hyperkalemia has resolved urine output 2 L in 24 hours BUN 51 creatinine 3. WBC count has improved 7.8, hemodynamically stable 06/16: Currently resting in bed on nasal cannula at 4 L. Serum creatinine is normalizing. Off all vasopressors. Requesting pain medications Subjective 06/17: Resting currently in bed in no acute distress. On BiPAP overnight likely secondary to volume overload. Received furosemide and much improved currently on 3 L. Requesting morphine sulfate for pain management. Also has question regarding orthopedic boot she needs to have appointment for on June 22 Objective Vital Signs Date Time Temp Pulse Resp B/P (MAP) Pulse Ox O2 Delivery O2 Flow Rate FiO2 06/17/17 09:13 95 Nasal Cannula 3.00 06/17/17 06:00 87 06/17/17 04:14 35 06/17/17 04:00 98.5 37 149/86 (107) Intake and Output 06/17/17 06/17/17 06/18/17 08:00 16:00 00:00 Intake Total 2170 ml 100 ml Output Total 400 ml Balance 1770 ml 100 ml Result Diagram: 06/17/17 0510 06/17/17 0510 Other Results Microbiology Date/Time Source Procedure Growth Status 06/17/17 05:10 Blood Peripheral Aerobic Blood Culture Pending Received 06/17/17 05:10 Blood Peripheral Anaerobic Blood Culture Pending Received 06/17/17 05:55 Sputum Endotracheal Gram Stain Pending Received 06/17/17 05:55 Sputum Endotracheal Sputum Culture Pending Received 06/17/17 02:45 Urine Catheterized Urine Legionella Antigen - Final PRESUMPTIVE NEGATIVE FOR LEGIONELLA P... Complete 06/17/17 02:45 Urine Catheterized Urine Streptococcus pneumoniae Antigen (M - Final PRESUMPTIVE NEGATIVE FOR STREPTOCOCCU... Complete Imaging Last Impressions Chest X-Ray 06/17/17 0000 Signed Impressions: Service Date/Time: Saturday, June 17, 2017 02:31 - CONCLUSION: Increased bilateral lower lung zone airspace consolidation with likely left pleural effusion. Ze Torres MD Head CT 06/14/17 1137 Signed Impressions: Service Date/Time: Wednesday, June 14, 2017 13:57 - CONCLUSION: Normal examination. Allan Joyce Jr., MD Thoracic Spine MRI 06/14/17 1034 Signed Impressions: Service Date/Time: Wednesday, June 14, 2017 14:21 - CONCLUSION: Interval decompressive surgery in the mid thoracic region. Stable appearance of chronic cord deformity and syrinx formation. No other definite acute findings. Ze Crocker MD Lumbar Spine MRI 06/14/17 1034 Signed Impressions: Service Date/Time: Wednesday, June 14, 2017 14:21 - CONCLUSION: 1. Worsening compression fracture involving the L3 vertebral body. There is now 50%% loss of height in L5 millimeters of retropulsion of the posterior cortical margin with resulting central canal stenosis. 2. Linear edema paralleling the L5 inferior endplate without appreciable loss of height. This likely relates to an occult compression deformity. 3. Multilevel degenerative changes as detailed above. Allan Joyce Jr., MD Renal Ultrasound 06/14/17 0000 Signed Impressions: Service Date/Time: Wednesday, June 14, 2017 16:32 - CONCLUSION: No evidence of hydronephrosis Ze Crocker MD Objective Remarks GENERAL: 56-year-old female, resting in bed in no acute distress on nasal cannula SKIN: Warm/dry. A Jesus bandage to left upper extremity, Abrasion to the right knee. HEAD: Atraumatic. Normocephalic. EYES: Pupils equal and round about 4 mm bilaterally and reactive. No scleral icterus. No injection or drainage. ENT: No nasal bleeding or discharge. Oropharynx without erythema or exudates NECK: Trachea midline. No JVD. CARDIOVASCULAR: Regular rate and rhythm. 2/ 6 systolic murmur heard in the apical region and left sternal border RESPIRATORY: Essentially clear to auscultation bilaterally without wheezes rales or rhonchi GASTROINTESTINAL: Abdomen soft, non-tender, nondistended. Hypoactive bowel sounds : Catheter in place with urine MUSCULOSKELETAL: No significant peripheral edema. NEUROLOGICAL: Utilize 2 through 12 grossly intact. Strength is equal symmetric. Normal sensation. Vascular Central Line Catheter: Yes Assessment to: Continue Line: Central Venous Catheter Side: Left Location: Internal, Jugular A/P Assessment and Plan NEURO/PSYCH: Acute encephalopathy History of polysubstance abuse including THC, cocaine and hydromorphone L3 compression fracture - Encephalopathy most likely metabolic from severe sepsis and resolving - CT of the head negative for any acute findings, urine drug screen revealed opiates - Morphine sulfate 1-2 mg every 2 hours. Pain - N/S Dr. Fishman consulted for worsening L3 compression fracture-he wants to reevaluate once the patient is extubated L3 compression fracture with 5 mm retropulsed into the posterior central canal. Home medications include bupropion extended release 150 daily, sertraline 200 mg daily, trazodone 150 mg a night, quetiapine 50 mill grams at night and gabapentin 600 mg 3 times a day. Restart bupropion 75 twice a day and sertraline at 100 milligrams daily. Methocarbamol 500 mg 3 times a day been held RESP: Acute respiratory failure resolved -Nasal cannula to maintain saturations greater than equal to 92% Incentive spirometry while awake Albuterol/ipratropium aerosols every 4 hours of albuterol aerosols every 2 hours. Dyspnea CV: Shock -resolved History of hypertension History dyslipidemia Continue IV fluids - 2d echo, revealed EF 50-55%. No vegetations Holding home medications lisinopril 20 mg daily and HCTZ 25 mg daily light of acute kidney injury Holding lovastatin 20 mg daily and gemfibrozil 600 mg twice a day. Resume when clinically indicated As needed hydralazine/Nitropaste for hypertension GI: Hepatitis C ADA diet Pantoprazole for GI prophylaxis Docusate senna/senna for bowel regimen /FEN/Renal: Acute kidney failure in the setting of chronic kidney disease stage III Hypokalemia Hypo-magnesium Hypocalcemia - Monitor renal function closely. Irwin catheter. Renal function improving with aggressive hydration -Creatinine currently 1.17. Followed by Dr. Mcbride Replace electrolytes per ICU electrolyte protocol ID: Septic shock -resolved Klebsiella pneumoniae UTI -06/14 Blood culture urine culture and sputum culture positive for Klebsiella pneumoniae in urine only. Rest negative - IV piperacillin/tazobactam 4.5 g IV every 6 hours HEME: Leukocytosis secondary to sepsis - Monitor CBC, CMP, coags ENDO: Diabetes mellitus Metformin 500 twice a day in light of acute kidney injury Sliding-scale insulin with Accu-Cheks before meals/at bedtime to maintain euglycemia PROPH: - Bilateral lower extremity SCDs. Heparin sq 5000 sq q12, pantoprazole LINES: - Utilize peripheral IVs, central line if needed Level 2 Patient is stable from a critical care medicine standpoint. Assign care to hospitalist in a.m. 06/18. Haroldo Mcdowell MD Jun 17, 2017 12:24
[2017-06-17] MEDS ORDERED: FUROSEMIDE 20 MG/2 ML VIAL IV PUSH ONE (12:45)
[2017-06-17] MEDS ORDERED: POTASSIUM CHLORIDE 20 MEQ CONTROLLED RELEASE TAB PO ONE (12:45)
[2017-06-17 19:50] LABS: POTASSIUM 3.1 MEQ/L (3.5-5.1)
[2017-06-17 19:55] LABS: MAGNESIUM 1.5 MG/DL (1.5-2.5)
[2017-06-18] VITALS (14 sets, daily range): BP systolic 130–160; BP diastolic 64–83; PULSE 66–109; RESP 18–25; TEMP 98.6–99.3; O2SAT 94–99
[2017-06-18] MEDS: MORPHINE SULFATE 4 MG/ML INJ IV PRN ×7 (00:24→23:25)
[2017-06-18] MEDS: AZITHROMYCIN INJ 500 MG in SODIUM CHLOR 0.9% 250 ML INJ 250 ML IV SCH (03:00)
[2017-06-18] MEDS: RESP: ALBUTEROL 2.5 MG/IPRATROPIUM 0.5 MG NEB (SCH) INH ×6 (04:00→23:35)
[2017-06-18] MEDS: CHLORHEXIDINE GLUCONATE 2 % 1 PACK (2 CLOTHS) TOP SCH (04:00)
[2017-06-18] MEDS: PIPERACIL-TAZO 4.5 GM PREMIX 100 ML IV SCH ×4 (05:00→23:28)
[2017-06-18] MEDS: CHLORHEXIDINE 0.12% (ORAL KIT) 15 ML CUP MT SCH ×2 (08:00→19:54)
[2017-06-18] MEDS: SODIUM CHLORIDE 0.9% FLUSH 10 ML FLUSH IV FLUSH SCH ×2 (08:47→19:54)
[2017-06-18] MEDS: PANTOPRAZOLE SOD 40 MG DELAYED RELEASE TAB PO SCH (08:47)
[2017-06-18] MEDS: HEPARIN SODIUM - SQ 10,000 UNITS/ML VIAL SQ SCH ×2 (08:47→19:53)
[2017-06-18] MEDS: SERTRALINE HCL 100 MG TAB PO SCH (08:48)
[2017-06-18] MEDS: buPROPion HCL 75 MG TAB PO SCH ×2 (08:48→19:54)
[2017-06-18] MEDS: DOCUSATE SODIUM 50 MG/SENNA 8.6 MG TAB PO SCH ×2 (08:49→19:54)
--- NOTE | 2017-06-18 17:01 | HHI.CCPN ---
Subjective Remarks/Hospital Course Patient is a 56-year-old female patient past medical history significant for type 2 diabetes, hypertension, dyslipidemia, history of chronic back pains secondary to L3 compression fracture, hypothyroidism, presented to the ER today with excruciating back pain, 9 out of 10. She denied any constitutional symptoms including fever chills nausea vomiting diarrhea. According to Dr. Navarro patient was a very poor historian and was encephalopathic. Patient admitted to the nursing staff taking IV Dilaudid yesterday. Patient was initially given 2 L of normal saline boluses for severe tachycardia and borderline hypotension. Her Lab work came back showing acute renal failure creatinine of 6.5, BUN 70 and potassium of 7.5, and leukocytosis with white count of 17.8 with Left shift. UA showed evidence of UTI. ABG showed a pH of 7.09 PCO2 of 38 and PO2 of 70 and base excess was -70. A Irwin catheter was placed and it shows cloudy urine. Patient received treatment for hyperkalemia man with 2 A of bicarbonate , calcium gluconate 2 g, DuoNeb breathing treatments, IV insulin 6 units followed by dextrose, and I have ordered Kayexalate also. Dr. Mcbride had been contacted personally by myself regarding possible dialysis if hyperkalemia not improving. Cultures have been sent and patient had been placed on vancomycin and Zosyn. CT of the head and MRI of the T and L-spine was ordered due to altered mentation and severe back pain. I evaluated the patient in the emergency department. Patient had been just intubated for worsening lethargy and altered mentation and severe metabolic acidosis. On my exam patient is under neuromuscular blockade and this limits limits exam. Her blood pressure is 80 systolic, 2 additional limited normal saline boluses, 2 more grams of bicarbonate, and Levophed to be started. I increase her respiratory rate on the vent from 12 to18 and increase the tidal volume to 600 to attempt to normalize pH. 06/15: Off sedation opens eyes, following commands. Hyperkalemia has resolved urine output 2 L in 24 hours BUN 51 creatinine 3. WBC count has improved 7.8, hemodynamically stable 06/16: Currently resting in bed on nasal cannula at 4 L. Serum creatinine is normalizing. Off all vasopressors. Requesting pain medications Subjective 06/17: Resting currently in bed in no acute distress. On BiPAP overnight likely secondary to volume overload. Received furosemide and much improved currently on 3 L. Requesting morphine sulfate for pain management. Also has question regarding orthopedic boot she needs to have appointment for on June 22. 06/18: No acute events overnight. Patient currently on 3 L nasal cannula O2 saturation 95-97 percent, refuse BiPAP last evening. Patient tolerating diet. Patient complains of pain and states that relieved by pain medicine down to a VAS pain score 5/10. Neurosurgery has been reconsulted for evaluation for her L3 compression fracture, that she is extubated. Objective Vital Signs Date Time Temp Pulse Resp B/P (MAP) Pulse Ox O2 Delivery O2 Flow Rate FiO2 06/18/17 16:00 98.8 82 20 160/83 (108) 98 06/18/17 07:50 Nasal Cannula 3.00 06/17/17 04:14 35 Intake and Output 06/18/17 06/18/17 06/19/17 08:00 16:00 00:00 Intake Total 1050 ml Output Total 550 ml Balance 500 ml Result Diagram: 06/17/17 0510 06/17/17 1920 Other Results Microbiology Date/Time Source Procedure Growth Status 06/17/17 02:45 Urine Catheterized Urine Legionella Antigen - Final PRESUMPTIVE NEGATIVE FOR LEGIONELLA P... Complete 06/17/17 02:45 Urine Catheterized Urine Streptococcus pneumoniae Antigen (M - Final PRESUMPTIVE NEGATIVE FOR STREPTOCOCCU... Complete Imaging Last Impressions Chest X-Ray 06/17/17 0000 Signed Impressions: Service Date/Time: Saturday, June 17, 2017 02:31 - CONCLUSION: Increased bilateral lower lung zone airspace consolidation with likely left pleural effusion. Ze Torres MD Head CT 06/14/17 1137 Signed Impressions: Service Date/Time: Wednesday, June 14, 2017 13:57 - CONCLUSION: Normal examination. Allan Joyce Jr., MD Thoracic Spine MRI 06/14/17 1034 Signed Impressions: Service Date/Time: Wednesday, June 14, 2017 14:21 - CONCLUSION: Interval decompressive surgery in the mid thoracic region. Stable appearance of chronic cord deformity and syrinx formation. No other definite acute findings. Ze Crocker MD Lumbar Spine MRI 06/14/17 1034 Signed Impressions: Service Date/Time: Wednesday, June 14, 2017 14:21 - CONCLUSION: 1. Worsening compression fracture involving the L3 vertebral body. There is now 50%% loss of height in L5 millimeters of retropulsion of the posterior cortical margin with resulting central canal stenosis. 2. Linear edema paralleling the L5 inferior endplate without appreciable loss of height. This likely relates to an occult compression deformity. 3. Multilevel degenerative changes as detailed above. Allan Joyce Jr., MD Renal Ultrasound 06/14/17 0000 Signed Impressions: Service Date/Time: Wednesday, June 14, 2017 16:32 - CONCLUSION: No evidence of hydronephrosis eZ Crocker MD Objective Remarks GENERAL: 56-year-old female, resting in bed in no acute distress on nasal cannula SKIN: Warm/dry. Jesus bandage to left upper extremity, Abrasion to the right knee. HEAD: Atraumatic. Normocephalic. EYES: Pupils equal and round about 4 mm bilaterally and reactive. No scleral icterus. No injection or drainage. ENT: No nasal bleeding or discharge. Oropharynx without erythema or exudates NECK: Trachea midline. No JVD. CARDIOVASCULAR: Regular rate and rhythm. 2/ 6 systolic murmur heard in the apical region and left sternal border RESPIRATORY: Essentially clear to auscultation bilaterally without wheezes rales or rhonchi GASTROINTESTINAL: Abdomen soft, non-tender, nondistended. Hypoactive bowel sounds : Catheter in place with urine MUSCULOSKELETAL: No significant peripheral edema. NEUROLOGICAL: CN II through XII grossly intact. Strength is equal symmetric. Normal sensation. Line: Central Venous Catheter Side: Left Location: Internal, Jugular A/P Assessment and Plan NEURO/PSYCH: Acute encephalopathy History of polysubstance abuse including THC, cocaine and hydromorphone L3 compression fracture - Encephalopathy most likely metabolic from severe sepsis and resolving - CT of the head negative for any acute findings, urine drug screen revealed opiates - Morphine sulfate 1-2 mg every 2 hours. Pain - N/S Dr. Fishman reconsulted for worsening L3 compression fracture-he wants to reevaluate now that the patient is extubated L3 compression fracture with 5 mm retropulsed into the posterior central canal. Home medications include bupropion extended release 150 daily, sertraline 200 mg daily, trazodone 150 mg a night, quetiapine 50 mill grams at night and gabapentin 600 mg 3 times a day. Restart bupropion 75 twice a day and sertraline at 100 milligrams daily. Methocarbamol 500 mg 3 times a day been held RESP: Acute respiratory failure resolved -Nasal cannula to maintain saturations greater than equal to 92%, wean off FiO2 Incentive spirometry while awake Albuterol/ipratropium aerosols every 4 hours of albuterol aerosols every 2 hours. Dyspnea CV: Shock -resolved History of hypertension History dyslipidemia Continue IV fluids - 2d echo, revealed EF 50-55%. No vegetations Holding home medications lisinopril 20 mg daily and HCTZ 25 mg daily light of acute kidney injury Holding lovastatin 20 mg daily and gemfibrozil 600 mg twice a day. Resume when clinically indicated As needed hydralazine/Nitropaste for hypertension GI: Hepatitis C ADA diet Pantoprazole for GI prophylaxis Docusate senna/senna for bowel regimen /FEN/Renal: Acute kidney failure in the setting of chronic kidney disease stage III Hypokalemia Hypo-magnesium Hypocalcemia - Monitor renal function closely. Irwin catheter. Renal function improving with aggressive hydration -Creatinine currently .[address] Mcbride Replace electrolytes per ICU electrolyte [id number] electrolyte levels tonight ID: Septic shock -resolved Klebsiella pneumoniae UTI -06/14 Blood culture urine culture and sputum culture positive for Klebsiella pneumoniae in urine only. Rest negative - IV piperacillin/tazobactam 4.5 g IV every 6 hours HEME: Leukocytosis secondary to sepsis - Monitor CBC, CMP, coags ENDO: Diabetes mellitus Metformin 500 twice a day in light of acute kidney injury Sliding-scale insulin with Accu-Cheks before meals/at bedtime to maintain euglycemia PROPH: - Bilateral lower extremity SCDs. Heparin sq 5000 sq q12, pantoprazole LINES: - Utilize peripheral IVs, central line if needed Level 2 Discussed with CHARGE OPERATOR at bedside. Patient is stable from a critical care medicine standpoint. Assign care to hospitalist in a.m. 06/18. Planned transfer to [facility] floor today Physician Marly Smith MD Jun 18, 2017 17:01
[2017-06-18 20:37] LABS: POTASSIUM 3.1 MEQ/L (3.5-5.1)
[2017-06-18 20:59] LABS: MAGNESIUM 1.3 MG/DL (1.5-2.5)
[2017-06-18] MEDS ORDERED: POTASSIUM CHLORIDE 20 MEQ CONTROLLED RELEASE TAB PO ONE (21:30)
[2017-06-18] MEDS: MAGNESIUM SULFATE 1 GM PREMIX 100 ML IV SCH ×2 (21:39→22:04)
[2017-06-19] VITALS (13 sets, daily range): BP systolic 140–165; BP diastolic 67–84; PULSE 68–96; RESP 18–20; TEMP 97.7–98.7; O2SAT 93–98
[2017-06-19] MEDS: MORPHINE SULFATE 4 MG/ML INJ IV PRN ×4 (02:55→14:35)
[2017-06-19] MEDS: AZITHROMYCIN INJ 500 MG in SODIUM CHLOR 0.9% 250 ML INJ 250 ML IV SCH (03:00)
[2017-06-19] MEDS: RESP: ALBUTEROL 2.5 MG/IPRATROPIUM 0.5 MG NEB (SCH) INH ×2 (03:21→07:22)
[2017-06-19] MEDS: CHLORHEXIDINE GLUCONATE 2 % 1 PACK (2 CLOTHS) TOP SCH (04:00)
[2017-06-19] MEDS: CHLORHEXIDINE 0.12% (ORAL KIT) 15 ML CUP MT SCH ×2 (08:00→20:00)
[2017-06-19] MEDS: PANTOPRAZOLE SOD 40 MG DELAYED RELEASE TAB PO SCH (08:44)
[2017-06-19] MEDS: DOCUSATE SODIUM 50 MG/SENNA 8.6 MG TAB PO SCH ×2 (08:45→21:00)
[2017-06-19] MEDS: SERTRALINE HCL 100 MG TAB PO SCH (08:45)
[2017-06-19] MEDS: SODIUM CHLORIDE 0.9% FLUSH 10 ML FLUSH IV FLUSH SCH ×2 (08:49→21:48)
[2017-06-19] MEDS: HEPARIN SODIUM - SQ 10,000 UNITS/ML VIAL SQ SCH ×2 (08:50→21:50)
[2017-06-19] MEDS: buPROPion HCL 75 MG TAB PO SCH ×2 (08:57→21:47)
--- NOTE | 2017-06-19 11:06 | HHI.NSPN ---
History Chief Complaint: Numbness below right knee. Pain to left leg. Interval History 06/14: The patient is a 56-year-old female who cannot provide history. The history of present illness and past medical history is obtained from her significant other who I spoke with on the telephone today, as well as her previous medical records. The patient apparently developed increasing severe low back and lower extremity pain symptoms earlier this year. In November 2016 she fell while getting off of an MRI table apparently for a spinal MRI. She sustained a closed fracture of the right ankle at that time. There is an additional MRI of the thoracic and lumbar spine performed [facility] in early February 2017. On 02/18/2017 she presented to [facility] emergency room with left-sided flank pain and was noted to have a cast on the right ankle per her orthopedic surgeon. At that time she complained of approximately 1 year of numbness and paresthesias in the lower extremities. A follow-up thoracic and lumbar spine MRI was obtained through the emergency room on 02/18/17 which revealed no enhancing lesions within the cord. There was a complex fluid collection with syrinx and intramedullary as well as extra medullary fluid collections throughout the thoracic spine not significantly changed from the previous outpatient study. The patient was noted to have a mild superior L3 endplate fracture without significant central canal stenosis. The findings were discussed with Dr. Morgan over the telephone and a neurosurgery follow-up was recommended. She presented back to the emergency room on 02/27/2017, having not yet followed up with neurosurgery. She did not have any saddle anesthesia or urinary incontinence, but complained of persistent back and lower extremity pain with ambulation. She was discharged home again with instructions for outpatient neurosurgery follow-up. Her significant other states that she was subsequently seen by Dr. Ramírez and was referred to [facility] for neurosurgery evaluation. She apparently underwent a thoracic laminectomy in March 2017. She was discharged to [facility] for approximately a week and then discharged home. Her significant other states that he is not aware of any subsequent neurosurgery follow-up after surgery. At that time she was able to walk up to 300 feet. However she gradually deteriorated and for the past 6 weeks has been able to walk only 10 or 15 feet in her home. He states that she has had progressive weakness in the lower extremities and is barely able to move one of her legs. He states that for the past 3 or 4 days she has been more lethargic. She apparently was weaned off of Percocet and placed on Seroquel. Her significant other states that she has been taking the Seroquel. She has not eaten well for the past few days. He is not aware of any fever sweats or chills. She returned back to the emergency room today with progressive severe back and lower extremity pain symptoms. She was noted to be tachycardic and given IV antibiotics due to suspicion of sepsis. She became progressively more lethargic , was noted to be hyperkalemic and acidotic. She was intubated and sedated in the emergency room and subsequently admitted to the medical intensive care unit. 06/19: The patient is awake and alert watching television when seen. She does endorse numbness below the right knee with decreased sensation from the knee up. She endorses pain and cramping to the left lower extremity. She has had prior thoracic spine surgery and has pain to the right of the area. She does have low back pain. She states that March of this year is when she had her thoracic spine surgery for a syrinx. She states that she had a torn meniscus to the right knee and was having an MRI done when she fell of the table this past November and sustained a fracture and since then she has had numbness below the knee. She reports that she had an infection last year and after that she did have decreased sensation to the right lower extremity. Since that time she has also had pain to the left lower extremity. She states she is not able to move the right lower extremity herself but others are able to. She reports a history of urinary and stool incontinence for years. She also reports a history of falls which are more frequent and that she is using a walker for ambulation. System Review Comments RESPIRATORY: Shortness of breath improved with sitting up. GASTROINTESTINAL: Incontinence of stool. GENITOURINARY: Incontinence of urine. MUSCULOSKELETAL: Mid back pain where she had surgery previously. Low back pain. Pain to the left leg. NEUROLOGICAL: Numbness below the right knee and decreased sensation to the rest of the leg. Occasional numbness to the hands. Exam Results 06/17/17 06/17/17 06/18/17 06/18/17 06/19/17 06/19/17 06:00 18:00 06:00 18:00 06:00 18:00 Intake Total 2380 ml 805 ml 800 ml 1290 ml Output Total 400 ml 4200 ml 1050 ml Balance 1980 ml -3395 ml -250 ml 1290 ml Intake Oral 120 ml 350 ml 600 ml 480 ml IV Total 2260 ml 455 ml 200 ml 810 ml Output Urine Total 400 ml 4200 ml 1050 ml # Voids 3 4 1 # Bowel Movements 2 0 2 1 Vital Signs Date Time Temp Pulse Resp B/P (MAP) Pulse Ox O2 Delivery O2 Flow Rate FiO2 06/19/17 09:11 20 06/19/17 08:36 98.1 84 19 144/79 (100) 93 06/19/17 07:23 94 Nasal Cannula 3.00 06/19/17 04:00 97.7 87 20 140/67 (91) 98 06/18/17 21:35 98.7 98 18 143/81 (101) 98 06/18/17 20:05 99 Nasal Cannula 3.00 06/18/17 20:00 99.3 94 20 141/78 (99) 96 06/18/17 20:00 94 06/18/17 19:00 98 Nasal Cannula 3.00 06/18/17 18:00 71 06/18/17 16:00 98.8 82 20 160/83 (108) 98 06/18/17 16:00 82 06/18/17 14:00 109 06/18/17 12:00 66 06/18/17 12:00 98.6 82 24 141/67 (91) 97 06/18/17 10:00 68 06/18/17 08:00 98.8 66 21 153/75 (101) 94 06/18/17 08:00 66 06/18/17 07:50 97 Nasal Cannula 3.00 06/18/17 07:00 93 Nasal Cannula 2.00 06/18/17 06:00 76 06/18/17 04:00 98.7 80 25 130/64 (86) 94 06/18/17 04:00 80 06/18/17 02:00 80 06/18/17 00:00 98.9 75 22 142/69 (93) 96 06/18/17 00:00 75 06/17/17 22:00 72 06/17/17 20:08 98 Nasal Cannula 3.00 06/17/17 20:00 99.1 75 20 142/76 (98) 97 06/17/17 20:00 75 06/17/17 19:00 97 Nasal Cannula 2.00 06/17/17 18:00 90 06/17/17 16:00 98.3 78 26 146/67 (93) 100 06/17/17 16:00 78 06/17/17 15:00 72 06/17/17 14:00 80 06/17/17 13:00 77 06/17/17 12:00 98.3 83 27 139/85 (103) 92 06/17/17 12:00 83 06/17/17 11:00 85 06/17/17 10:00 101 06/17/17 09:13 95 Nasal Cannula 3.00 06/17/17 09:01 92 06/17/17 09:00 94 06/17/17 08:00 98.7 80 27 158/91 (113) 100 06/17/17 08:00 80 06/17/17 07:00 81 06/17/17 07:00 97 Nasal Cannula 4.00 06/17/17 06:00 87 06/17/17 04:14 98 BiPAP 35 06/17/17 04:14 98 35 06/17/17 04:00 98.5 96 37 149/86 (107) 99 06/17/17 04:00 96 06/17/17 02:09 100 BiPAP 50 06/17/17 02:00 97 06/17/17 00:09 96 Nasal Cannula 4.00 06/17/17 00:00 80 06/17/17 00:00 98.1 80 31 169/99 (122) 97 06/16/17 22:00 75 06/16/17 20:48 96 Nasal Cannula 4.00 06/16/17 20:00 67 06/16/17 20:00 99.3 67 32 178/91 (120) 97 06/16/17 19:00 95 Nasal Cannula 4.00 06/16/17 18:00 70 06/16/17 16:00 98.6 72 32 180/84 (116) 96 06/16/17 16:00 72 06/16/17 14:00 72 06/16/17 12:00 73 06/16/17 12:00 98.0 73 32 158/86 (110) 94 Physical Examination GENERAL: The patient is awake & alert. Her affect is essentially normal. She appears mildly uncomfortable due to her respiratory effort. SKIN: Cool & dry, abrasions to right knee area, multiple ecchymotic areas to extremities. HEENT: Normocephalic, atraumatic. PERRLA 3 mm brisk, EOMI. MMM & pink, tongue midline to protrusion. NECK: Midline cervical spine NTTP, full ROM w/o pain, no JVD, trachea midline. RESPIRATORY: CTAB w/o W/R/R decreased on left, equal excursion, moderate respiratory effort, on 3L NC. CARDIOVASCULAR: S1S2 w/RRR, w/o M/G/R, radial & pedal pulses 2+ bilaterally, no pedal edema. Telemetry is sinus tachycardia (low 100s) w/o any ectopy noted. GASTROINTESTINAL: Abdomen soft, nontender, positive bowel sounds. MUSCULOSKELETAL: Moves upper extremities w/o any difficulty, moves left lower extremity w/moderate difficulty which appears secondary to pain, no movement of right lower. Mild TTP of left lower. Mid thoracic surgical incision well healed mildly TTP to area. Minimally TTP of lumbosacral spine. NEUROLOGICAL: AAOx3. Speech clear & appropriate. Follows simple commands w/o difficulty. CN II-XII appear grossly intact. Decreased sensation to proximal right lower extremity, numbness below the knee. Otherwise sensation intact to light touch to the other extremities. Motor strength is 5/5 to BUE & LLE and appears to be 0/5 to RLE. No ankle clonus bilaterally. Upward plantar response bilaterally. No Be's bilaterally. Lab, Micro, Other Results Recent Impressions Chest X-Ray 06/17/17 0000 Signed Impressions: Service Date/Time: Saturday, June 17, 2017 02:31 - CONCLUSION: Increased bilateral lower lung zone airspace consolidation with likely left pleural effusion. Ze Torres MD Laboratory Tests Test 06/16/17 22:15 06/17/17 05:10 06/17/17 08:18 06/17/17 19:20 Potassium Level 3.7 MEQ/L 3.4 MEQ/L 3.1 MEQ/L Phosphorus Level 2.0 MG/DL 2.0 MG/DL 1.8 MG/DL Magnesium Level 1.6 MG/DL 1.7 MG/DL 1.5 MG/DL White Blood Count 14.6 TH/MM3 Red Blood Count 2.58 MIL/MM3 Hemoglobin 7.8 GM/DL Hematocrit 23.5 % Mean Corpuscular Volume 91.0 FL Mean Corpuscular Hemoglobin 30.1 PG Mean Corpuscular Hemoglobin Concent 33.1 % Red Cell Distribution Width 14.1 % Platelet Count 255 TH/MM3 Mean Platelet Volume 9.5 FL Neutrophils (%) (Auto) 83.1 % Lymphocytes (%) (Auto) 9.2 % Monocytes (%) (Auto) 7.6 % Eosinophils (%) (Auto) 0.0 % Basophils (%) (Auto) 0.1 % Neutrophils # (Auto) 12.2 TH/MM3 Lymphocytes # (Auto) 1.3 TH/MM3 Monocytes # (Auto) 1.1 TH/MM3 Eosinophils # (Auto) 0.0 TH/MM3 Basophils # (Auto) 0.0 TH/MM3 CBC Comment DIFF FINAL Differential Comment Blood Urea Nitrogen 17 MG/DL Creatinine 0.75 MG/DL Random Glucose 130 MG/DL Total Protein 6.5 GM/DL Albumin 2.6 GM/DL Calcium Level 7.6 MG/DL Alkaline Phosphatase 92 U/L Aspartate Amino Transf (AST/SGOT) 39 U/L Alanine Aminotransferase (ALT/SGPT) 29 U/L Total Bilirubin 0.4 MG/DL Sodium Level 145 MEQ/L Chloride Level 109 MEQ/L Carbon Dioxide Level 27.1 MEQ/L Anion Gap 9 MEQ/L Estimat Glomerular Filtration Rate 81 ML/MIN Blood Gas Puncture Site RT RADIAL Blood Gas Patient Temperature 98.6 Blood Gas HCO3 28 mmol/L Blood Gas Base Excess 4.9 mmol/L Blood Gas Oxygen Saturation 94 % Arterial Blood pH 7.51 Arterial Blood Partial Pressure CO2 35 mmHg Arterial Blood Partial Pressure O2 93 mmHg Arterial Blood Oxygen Content 9.8 Vol % Arterial Blood Carboxyhemoglobin 0.8 % Arterial Blood Methemoglobin 1.8 % Blood Gas Hemoglobin 7.3 G/DL Oxygen Delivery Device BiPAP Blood Gas Ventilator Setting [id number] Blood Gas Inspired Oxygen 35 % Test 06/18/17 20:05 Potassium Level 3.1 MEQ/L Phosphorus Level 3.1 MG/DL Magnesium Level 1.3 MG/DL Medical Decision Making Impression and Plan Impression: 1. There is significant increase in the previously noted L3 compression fracture which previously was approximately 20% loss of height with 3 mm retropulsion on MRI of 02/18/2017, increased to approximately 50% central compression with approximately 6 mm retropulsed posterior superior vertebral margin and approximately 4 mm RAAD thecal sac to mention on MRI 06/14/2017 2. 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 Patient has recently undergone a thoracic laminectomy with probable exploration and approximate March 2017 at [facility]. 3. Sepsis. UTI 4. Diabetes 5. Hypertension 6. Arthritis 7. Acute renal failure superimposed on baseline chronic renal insufficiency. Patient with what appears to be chronic neurological deficits. 06/14/2017 thoracic and lumbar spine MRI images demonstrate extensive chronic changes in the thoracic spine consistent with syrinx formation as well as intramedullary and extramedullary fluid collections. Relatively stable compared to prior MRI imaging from February 2017 from [facility] as well as previous MRI images from [facility]. There is however significant increase in the previously noted L3 compression fracture which previously was approximately 20% loss of height with 3 mm retropulsion on MRI of 02/18/2017, increased to approximately 50% central compression with approximately 6 mm retropulsed posterior superior vertebral margin and approximately 4 mm RAAD thecal sac to mention on MRI 06/14/2017. Plan: Discussed plan of care with patient. Physical and Occupational Therapy. TLSO vs LSO brace when mobilising. Ricardo Tee Jun 19, 2017 11:06
--- NOTE | 2017-06-19 11:10 | HHI.PR ---
Subjective Remarks Patient reports she is feeling okay. Still having some shortness of breath but it's unchanged. States she feels better when she is sitting up. Objective Vitals Vital Signs Date Time Temp Pulse Resp B/P (MAP) Pulse Ox O2 Delivery O2 Flow Rate FiO2 06/19/17 10:22 76 06/19/17 10:22 93 Nasal Cannula 5.00 06/19/17 09:11 20 06/19/17 08:36 98.1 84 19 144/79 (100) 93 06/19/17 07:23 94 Nasal Cannula 3.00 06/19/17 04:00 97.7 87 20 140/67 (91) 98 06/18/17 21:35 98.7 98 18 143/81 (101) 98 06/18/17 20:05 99 Nasal Cannula 3.00 06/18/17 20:00 99.3 94 20 141/78 (99) 96 06/18/17 20:00 94 06/18/17 19:00 98 Nasal Cannula 3.00 06/18/17 18:00 71 06/18/17 16:00 98.8 82 20 160/83 (108) 98 06/18/17 16:00 82 06/18/17 14:00 109 06/18/17 12:00 66 06/18/17 12:00 98.6 82 24 141/67 (91) 97 I/O 06/18/17 06/18/17 06/18/17 06/19/17 06/19/17 06/19/17 07:00 15:00 23:00 07:00 15:00 23:00 Intake Total 1050 ml 100 ml 840 ml Output Total 550 ml Balance 500 ml 100 ml 840 ml Intake Oral 600 ml 480 ml IV Total 450 ml 100 ml 360 ml Output Urine Total 550 ml # Voids 3 4 1 # Bowel Movements 0 2 1 Result Diagram: 06/17/17 0510 06/18/17 2005 Imaging Last Impressions Chest X-Ray 06/17/17 0000 Signed Impressions: Service Date/Time: Saturday, June 17, 2017 02:31 - CONCLUSION: Increased bilateral lower lung zone airspace consolidation with likely left pleural effusion. Ze Torres MD Head CT 06/14/17 1137 Signed Impressions: Service Date/Time: Wednesday, June 14, 2017 13:57 - CONCLUSION: Normal examination. Allan Joyce Jr., MD Thoracic Spine MRI 06/14/17 1034 Signed Impressions: Service Date/Time: Wednesday, June 14, 2017 14:21 - CONCLUSION: Interval decompressive surgery in the mid thoracic region. Stable appearance of chronic cord deformity and syrinx formation. No other definite acute findings. Ze Crocker MD Lumbar Spine MRI 06/14/17 1034 Signed Impressions: Service Date/Time: Wednesday, June 14, 2017 14:21 - CONCLUSION: 1. Worsening compression fracture involving the L3 vertebral body. There is now 50%% loss of height in L5 millimeters of retropulsion of the posterior cortical margin with resulting central canal stenosis. 2. Linear edema paralleling the L5 inferior endplate without appreciable loss of height. This likely relates to an occult compression deformity. 3. Multilevel degenerative changes as detailed above. Allan Joyce Jr., MD Renal Ultrasound 06/14/17 0000 Signed Impressions: Service Date/Time: Wednesday, June 14, 2017 16:32 - CONCLUSION: No evidence of hydronephrosis Ze Crocker MD Objective Remarks GENERAL: Patient appearing older than stated age. Some tachypnea. CARDIOVASCULAR: Normal rate and regular rhythm without murmurs, gallops, or rubs. RESPIRATORY: Tachypneic, diffuse end expiratory wheezing throughout. GASTROINTESTINAL: Abdomen soft, non-tender, non-distended. Normal active bowel sounds MUSCULOSKELETAL: Appear to have some right knee contracture. NEURO: Alert & Oriented x4 to person, place, time, situation. Generalized weakness. PSYCH: Appropriate mood and affect. Line: Central Venous Catheter Side: Left Location: Internal, Jugular A/P Problem List: (1) Acute respiratory failure ICD Code: J96.00 - Acute respiratory failure, unspecified whether with hypoxia or hypercapnia (2) Acute encephalopathy ICD Code: G93.40 - Encephalopathy, unspecified Status: Resolved (3) Septic shock ICD Code: A41.9 - Sepsis, unspecified organism; R65.21 - Severe sepsis with septic shock (4) Acute renal failure ICD Code: N17.9 - Acute kidney failure, unspecified Status: Acute (5) Hyperkalemia ICD Code: E87.5 - Hyperkalemia Status: Acute (6) Metabolic acidosis ICD Code: E87.2 - Acidosis Status: Resolved (7) Hypoglycemia ICD Code: E16.2 - Hypoglycemia, unspecified (8) UTI (urinary tract infection) ICD Code: N39.0 - Urinary tract infection, site not specified Status: Acute (9) Acute exacerbation of chronic low back pain ICD Code: M54.5 - Low back pain; G89.29 - Other chronic pain Status: Acute (10) Diabetes mellitus, type 2 ICD Code: E11.9 - Type 2 diabetes mellitus without complications Status: Chronic (11) Compression fracture of L3 lumbar vertebra ICD Code: S32.030A - Wedge compression fracture of third lumbar vertebra, initial encounter for closed fracture Status: Acute Assessment and Plan 56-year-old female with: Acute encephalopathy History of polysubstance abuse including THC, cocaine and hydromorphone L3 compression fracture - Encephalopathy most likely metabolic from severe sepsis and resolving - CT of the head negative for any acute findings, urine drug screen revealed opiates - Morphine sulfate 1-2 mg every 2 hours. Pain - Neurosurgery following for compression fracture. Home medications include bupropion extended release 150 daily, sertraline 200 mg daily, trazodone 150 mg a night, quetiapine 50 mill grams at night and gabapentin 600 mg 3 times a day. Restart bupropion 75 twice a day and sertraline at 100 milligrams daily. Methocarbamol 500 mg 3 times a day been held Acute respiratory failure/hypoxemia: -Still having some difficulty with breathing. There are increased bilateral basilar airspace disease suggestive of pneumonia. - Continue Zosyn and azithromycin. - Add prednisone. Continue scheduled breathing treatments. -Nasal cannula to maintain saturations greater than equal to 92%, wean off FiO2 Incentive spirometry while awake Albuterol/ipratropium aerosols every 4 hours of albuterol aerosols every 2 hours. Acute on chronic anemia: There is no evidence of an active bleed but hemoglobin has been trending down to 7.2 today. She is hypoxemic and tachypneic. - Transfused 2 units of PRBC today which should help with hypoxemia. Shock -resolved History of hypertension History dyslipidemia - 2d echo, revealed EF 50-55%. No vegetations Holding home medications lisinopril 20 mg daily. Resume HCTZ today. Holding lovastatin 20 mg daily and gemfibrozil 600 mg twice a day. Resume when clinically indicated As needed hydralazine/Nitropaste for hypertension Hepatitis C ADA diet Pantoprazole for GI prophylaxis Docusate senna/senna for bowel regimen Acute kidney failure in the setting of chronic kidney disease stage III Hypokalemia Hypo-magnesium Hypocalcemia - Monitor renal function closely. Irwin catheter. Renal function improving with aggressive hydration -Creatinine currently .[address] Mcbride Replace electrolytes per ICU electrolyte [id number] repeat electrolyte levels tonight Septic shock -resolved Klebsiella pneumoniae UTI -06/14 Blood culture urine culture and sputum culture positive for Klebsiella pneumoniae in urine only. Rest negative - IV piperacillin/tazobactam 4.5 g IV every 6 hours Leukocytosis secondary to sepsis: Improving. Diabetes mellitus Hold Metformin 500 twice a day in light of acute kidney injury Sliding-scale insulin with Accu-Cheks before meals/at bedtime to maintain euglycemia PROPH: - Bilateral lower extremity SCDs. Heparin sq 5000 sq q12, pantoprazole Discharge Planning Continue inpatient treatment. Likely will need SNF. Problem Qualifiers (1) Acute respiratory failure: Qualified Codes: J96.00 - Acute respiratory failure, unspecified whether with hypoxia or hypercapnia (2) Acute renal failure: Qualified Codes: N17.9 - Acute kidney failure, unspecified (3) UTI (urinary tract infection): (4) Diabetes mellitus, type 2: Michael Hughes MD Jun 19, 2017 11:10
[2017-06-19] MEDS: PIPERACIL-TAZO 4.5 GM PREMIX 100 ML IV SCH ×3 (11:35→22:04)
[2017-06-19 14:03] LABS: AUTOMATED NEUTROPHIL # 11.5 TH/MM3 (1.8-7.7); BASOPHIL % 0.1 % (0.0-2.0); EOSINOPHIL % 0.2 % (0.0-4.0); HEMATOCRIT 21.8 % (35.0-46.0); HEMO FLAGS DIFF FINAL; LYMPH % 9.3 % (9.0-44.0); LYMPHOCYTE # 1.3 TH/MM3 (1.0-4.8); MEAN CELL VOLUME 91.6 FL (80.0-100.0); MEAN CORPUSCULAR HEMOGLOBIN 30.5 PG (27.0-34.0); MEAN CORPUSCULAR HGB CONC 33.3 % (32.0-36.0); MONO % 7.8 % (0.0-8.0); NEUT % 82.6 % (16.0-70.0); PLATELET COUNT 284 TH/MM3 (150-450); RED BLOOD COUNT 2.38 MIL/MM3 (4.00-5.30); RED CELL DISTRIBUTION WIDTH 14.4 % (11.6-17.2); WHITE BLOOD COUNT 13.9 TH/MM3 (4.0-11.0)
[2017-06-19 14:26] LABS: BICARBONATE 26.7 MEQ/L (21.0-32.0); POTASSIUM 3.2 MEQ/L (3.5-5.1)
[2017-06-19] MEDS ORDERED: SODIUM CHLOR 0.9% 250 ML INJ 250 ML IV ONE (15:30)
[2017-06-19] MEDS ORDERED: FUROSEMIDE 20 MG/2 ML VIAL IV PUSH ONE (15:30)
[2017-06-19] MEDS: predniSONE 20 MG TAB PO SCH ×2 (16:58→21:47)
[2017-06-19] MEDS: oxyCODONE/ACETAMINOPHEN 5 MG/325 MG TAB PO PRN ×2 (17:52→21:47)
[2017-06-19] MEDS: RESP: ALBUTEROL 2.5 MG/3 ML NEB (PRN) NEB (22:20)
[2017-06-20] VITALS (13 sets, daily range): BP systolic 141–182; BP diastolic 77–93; PULSE 60–80; RESP 16–20; TEMP 97.4–99.1; O2SAT 93–96
[2017-06-20] MEDS: oxyCODONE/ACETAMINOPHEN 5 MG/325 MG TAB PO PRN ×4 (01:53→21:54)
[2017-06-20] MEDS: PIPERACIL-TAZO 4.5 GM PREMIX 100 ML IV SCH ×2 (04:34→11:46)
[2017-06-20] MEDS: AZITHROMYCIN INJ 500 MG in SODIUM CHLOR 0.9% 250 ML INJ 250 ML IV SCH (04:38)
[2017-06-20] MEDS: RESP: ALBUTEROL 2.5 MG/3 ML NEB (PRN) NEB (06:27)
[2017-06-20] MEDS: CHLORHEXIDINE 0.12% (ORAL KIT) 15 ML CUP MT SCH ×2 (08:00→20:00)
[2017-06-20 08:07] LABS: HEMATOCRIT 26.8 % (35.0-46.0); MEAN CELL VOLUME 90.5 FL (80.0-100.0); MEAN CORPUSCULAR HEMOGLOBIN 30.7 PG (27.0-34.0); PLATELET COUNT 263 TH/MM3 (150-450); RED BLOOD COUNT 2.96 MIL/MM3 (4.00-5.30); RED CELL DISTRIBUTION WIDTH 14.5 % (11.6-17.2); REVIEW FLAG FINAL
[2017-06-20 08:28] LABS: BICARBONATE 26.3 MEQ/L (21.0-32.0); POTASSIUM 3.3 MEQ/L (3.5-5.1)
[2017-06-20] MEDS ORDERED: POTASSIUM CHLORIDE 10 MEQ CONTROLLED RELEASE TAB PO ONE (09:00)
[2017-06-20] MEDS: DOCUSATE SODIUM 50 MG/SENNA 8.6 MG TAB PO SCH ×2 (09:00→20:22)
[2017-06-20] MEDS ORDERED: HYDROCHLOROTHIAZIDE 25 MG TAB PO SCH (09:00)
[2017-06-20] MEDS: SERTRALINE HCL 100 MG TAB PO SCH (09:03)
[2017-06-20] MEDS: buPROPion HCL 75 MG TAB PO SCH ×2 (09:03→20:21)
[2017-06-20] MEDS: SODIUM CHLORIDE 0.9% FLUSH 10 ML FLUSH IV FLUSH SCH ×2 (09:03→20:22)
[2017-06-20] MEDS: predniSONE 20 MG TAB PO SCH ×2 (09:04→20:21)
[2017-06-20] MEDS: PANTOPRAZOLE SOD 40 MG DELAYED RELEASE TAB PO SCH (09:04)
[2017-06-20] MEDS: HEPARIN SODIUM - SQ 10,000 UNITS/ML VIAL SQ SCH ×2 (09:04→20:22)
[2017-06-20] MEDS: MAGNESIUM SULFATE 1 GM PREMIX 100 ML IV SCH ×2 (09:39→10:45)
[2017-06-20] MEDS: cloNIDine HCL 0.1 MG TAB PO PRN ×2 (12:39→20:26)
--- NOTE | 2017-06-20 13:24 | HHI.PR ---
Objective Vitals Vital Signs Date Time Temp Pulse Resp B/P (MAP) Pulse Ox O2 Delivery O2 Flow Rate FiO2 06/20/17 13:04 94 06/20/17 12:32 97.6 70 18 182/90 (120) 93 06/20/17 11:46 20 06/20/17 09:20 94 Nasal Cannula 4.00 06/20/17 09:20 80 06/20/17 08:09 97.4 66 16 153/78 (103) 93 06/20/17 05:30 97.4 60 18 171/84 (113) 95 06/20/17 03:48 72 06/20/17 02:46 97.9 77 20 141/77 95 06/20/17 02:30 98.9 73 20 148/78 95 06/20/17 00:41 98.1 69 18 162/77 (105) 95 06/20/17 00:00 69 06/19/17 23:35 98.7 72 18 165/79 94 06/19/17 23:16 98.2 68 20 160/76 95 06/19/17 23:00 Nasal Cannula 4.00 Humidified 06/19/17 21:05 97 Nasal Cannula 3.00 06/19/17 20:40 Nasal Cannula 4.00 06/19/17 20:26 98.5 68 20 164/80 (108) 97 06/19/17 20:25 Nasal Cannula 5.00 06/19/17 20:01 78 06/19/17 16:27 98.1 96 18 142/84 (103) 95 06/19/17 16:17 71 I/O 06/19/17 06/19/17 06/19/17 06/20/17 06/20/17 06/20/17 07:00 15:00 23:00 07:00 15:00 23:00 Intake Total 100 ml 580 ml 1074 ml 325 ml Balance 100 ml 580 ml 1074 ml 325 ml Intake Oral 480 ml IV Total 100 ml 100 ml 350 ml 325 ml Packed Cells 659 ml Blood Product IV Normal Saline Flush 65 ml # Voids 4 1 2 2 # Bowel Movements 1 2 3 Result Diagram: 06/20/17 0600 06/20/17 0600 Objective Remarks GENERAL: Patient appearing older than stated age. Some tachypnea. CARDIOVASCULAR: Normal rate and regular rhythm without murmurs, gallops, or rubs. RESPIRATORY: Tachypneic, diffuse end expiratory wheezing throughout. GASTROINTESTINAL: Abdomen soft, non-tender, non-distended. Normal active bowel sounds MUSCULOSKELETAL: Appear to have some right knee contracture. NEURO: Alert & Oriented x4 to person, place, time, situation. Generalized weakness. PSYCH: Appropriate mood and affect. Line: Central Venous Catheter Side: Left Location: Internal, Jugular A/P Problem List: (1) Acute respiratory failure ICD Code: J96.00 - Acute respiratory failure, unspecified whether with hypoxia or hypercapnia (2) Acute encephalopathy ICD Code: G93.40 - Encephalopathy, unspecified Status: Resolved (3) Septic shock ICD Code: A41.9 - Sepsis, unspecified organism; R65.21 - Severe sepsis with septic shock (4) Acute renal failure ICD Code: N17.9 - Acute kidney failure, unspecified Status: Acute (5) Hyperkalemia ICD Code: E87.5 - Hyperkalemia Status: Acute (6) Metabolic acidosis ICD Code: E87.2 - Acidosis Status: Resolved (7) Hypoglycemia ICD Code: E16.2 - Hypoglycemia, unspecified (8) UTI (urinary tract infection) ICD Code: N39.0 - Urinary tract infection, site not specified Status: Acute (9) Acute exacerbation of chronic low back pain ICD Code: M54.5 - Low back pain; G89.29 - Other chronic pain Status: Acute (10) Diabetes mellitus, type 2 ICD Code: E11.9 - Type 2 diabetes mellitus without complications Status: Chronic (11) Compression fracture of L3 lumbar vertebra ICD Code: S32.030A - Wedge compression fracture of third lumbar vertebra, initial encounter for closed fracture Status: Acute Assessment and Plan 56-year-old female with: Acute encephalopathy History of polysubstance abuse including THC, cocaine and hydromorphone L3 compression fracture - Encephalopathy most likely metabolic from severe sepsis and resolving - CT of the head negative for any acute findings, urine drug screen revealed opiates - Morphine sulfate 1-2 mg every 2 hours. Pain - Neurosurgery following for compression fracture. Home medications include bupropion extended release 150 daily, sertraline 200 mg daily, trazodone 150 mg a night, quetiapine 50 mill grams at night and gabapentin 600 mg 3 times a day. Restart bupropion 75 twice a day and sertraline at 100 milligrams daily. Methocarbamol 500 mg 3 times a day been held Acute respiratory failure/hypoxemia: -Still having some difficulty with breathing. There are increased bilateral basilar airspace disease suggestive of pneumonia. - Continue Zosyn and azithromycin. - Add prednisone. Continue scheduled breathing treatments. -Nasal cannula to maintain saturations greater than equal to 92%, wean off FiO2 Incentive spirometry while awake Albuterol/ipratropium aerosols every 4 hours of albuterol aerosols every 2 hours. Acute on chronic anemia: There is no evidence of an active bleed but hemoglobin has been trending down to 7.2 today. She is hypoxemic and tachypneic. - Transfused 2 units of PRBC today which should help with hypoxemia. Shock -resolved History of hypertension History dyslipidemia - 2d echo, revealed EF 50-55%. No vegetations Holding home medications lisinopril 20 mg daily. Resume HCTZ today. Holding lovastatin 20 mg daily and gemfibrozil 600 mg twice a day. Resume when clinically indicated As needed hydralazine/Nitropaste for hypertension Hepatitis C ADA diet Pantoprazole for GI prophylaxis Docusate senna/senna for bowel regimen Acute kidney failure in the setting of chronic kidney disease stage III Hypokalemia Hypo-magnesium Hypocalcemia - Monitor renal function closely. Irwin catheter. Renal function improving with aggressive hydration -Creatinine currently .[address] Mcbride Replace electrolytes per ICU electrolyte [id number]-[id number] repeat electrolyte levels tonight Septic shock -resolved Klebsiella pneumoniae UTI -06/14 Blood culture urine culture and sputum culture positive for Klebsiella pneumoniae in urine only. Rest negative - IV piperacillin/tazobactam 4.5 g IV every 6 hours Leukocytosis secondary to sepsis: Improving. Diabetes mellitus Hold Metformin 500 twice a day in light of acute kidney injury Sliding-scale insulin with Accu-Cheks before meals/at bedtime to maintain euglycemia PROPH: - Bilateral lower extremity SCDs. Heparin sq 5000 sq q12, pantoprazole Discharge Planning Continue inpatient treatment. Likely will need SNF. Problem Qualifiers (1) Acute respiratory failure: Qualified Codes: J96.00 - Acute respiratory failure, unspecified whether with hypoxia or hypercapnia (2) Acute renal failure: Qualified Codes: N17.9 - Acute kidney failure, unspecified (3) UTI (urinary tract infection): (4) Diabetes mellitus, type 2: Rimpel,Ricardy MD Jun 20, 2017 13:24
--- NOTE | 2017-06-20 13:27 | HHI.NSPN ---
(Ricardo Tee) History Chief Complaint: Abdominal pain and diarrhea (Ricardo Tee) Interval History 06/14: The patient is a 56-year-old female who cannot provide history. The history of present illness and past medical history is obtained from her significant other who I spoke with on the telephone today, as well as her previous medical records. The patient apparently developed increasing severe low back and lower extremity pain symptoms earlier this year. In November 2016 she fell while getting off of an MRI table apparently for a spinal MRI. She sustained a closed fracture of the right ankle at that time. There is an additional MRI of the thoracic and lumbar spine performed [facility] in early February 2017. On 02/18/2017 she presented to [facility] with left-sided flank pain and was noted to have a cast on the right ankle per her orthopedic surgeon. At that time she complained of approximately 1 year of numbness and paresthesias in the lower extremities. A follow-up thoracic and lumbar spine MRI was obtained through the emergency room on 02/18/17 which revealed no enhancing lesions within the cord. There was a complex fluid collection with syrinx and intramedullary as well as extra medullary fluid collections throughout the thoracic spine not significantly changed from the previous outpatient study. The patient was noted to have a mild superior L3 endplate fracture without significant central canal stenosis. The findings were discussed with Dr. Morgan over the telephone and a neurosurgery follow-up was recommended. She presented back to the emergency room on 02/27/2017, having not yet followed up with neurosurgery. She did not have any saddle anesthesia or urinary incontinence, but complained of persistent back and lower extremity pain with ambulation. She was discharged home again with instructions for outpatient neurosurgery follow-up. Her significant other states that she was subsequently seen by Dr. Ramírez and was referred to [facility] for neurosurgery evaluation. She apparently underwent a thoracic laminectomy in March 2017. She was discharged to [facility] for approximately a week and then discharged home. Her significant other states that he is not aware of any subsequent neurosurgery follow-up after surgery. At that time she was able to walk up to 300 feet. However she gradually deteriorated and for the past 6 weeks has been able to walk only 10 or 15 feet in her home. He states that she has had progressive weakness in the lower extremities and is barely able to move one of her legs. He states that for the past 3 or 4 days she has been more lethargic. She apparently was weaned off of Percocet and placed on Seroquel. Her significant other states that she has been taking the Seroquel. She has not eaten well for the past few days. He is not aware of any fever sweats or chills. She returned back to the emergency room today with progressive severe back and lower extremity pain symptoms. She was noted to be tachycardic and given IV antibiotics due to suspicion of sepsis. She became progressively more lethargic , was noted to be hyperkalemic and acidotic. She was intubated and sedated in the emergency room and subsequently admitted to the medical intensive care unit. 06/19: The patient is awake and alert watching television when seen. She does endorse numbness below the right knee with decreased sensation from the knee up. She endorses pain and cramping to the left lower extremity. She has had prior thoracic spine surgery and has pain to the right of the area. She does have low back pain. She states that March of this year is when she had her thoracic spine surgery for a syrinx. She states that she had a torn meniscus to the right knee and was having an MRI done when she fell of the table this past November and sustained a fracture and since then she has had numbness below the knee. She reports that she had an infection last year and after that she did have decreased sensation to the right lower extremity. Since that time she has also had pain to the left lower extremity. She states she is not able to move the right lower extremity herself but others are able to. She reports a history of urinary and stool incontinence for years. She also reports a history of falls which are more frequent and that she is using a walker for ambulation. 06/20: The patient is awake and alert when seen this afternoon. She states that she is not doing so good due to abdominal pain and diarrhea. She continues to have pain to the thoracic and lumbar area of the back as well as cramping to the left lower extremity. There is no change in the sensation to the right lower extremity. (Finney,Ricardo E. COMMUTATOR OPERATOR) System Review Comments RESPIRATORY: Shortness of breath. GASTROINTESTINAL: Diarrhea. GENITOURINARY: Incontinence of urine. MUSCULOSKELETAL: Mid and low back pain. Cramps to the left leg. NEUROLOGICAL: Numbness below the right knee and decreased sensation to the rest of the leg. Occasional numbness to the hands. (Ricardo Tee) Exam Results 06/18/17 06/18/17 06/19/17 06/19/17 06/20/17 06/20/17 06:00 18:00 06:00 18:00 06:00 18:00 Intake Total 800 ml 1290 ml 680 ml 724 ml 675 ml Output Total 1050 ml Balance -250 ml 1290 ml 680 ml 724 ml 675 ml Intake Oral 600 ml 480 ml 480 ml IV Total 200 ml 810 ml 200 ml 675 ml Packed Cells 659 ml Blood Product IV Normal Saline Flush 65 ml Output Urine Total 1050 ml # Voids 3 4 1 1 3 # Bowel Movements 0 2 1 1 4 Vital Signs Date Time Temp Pulse Resp B/P (MAP) Pulse Ox O2 Delivery O2 Flow Rate FiO2 06/20/17 13:04 94 06/20/17 12:32 97.6 70 18 182/90 (120) 93 06/20/17 11:46 20 06/20/17 09:20 94 Nasal Cannula 4.00 06/20/17 09:20 80 06/20/17 08:09 97.4 66 16 153/78 (103) 93 06/20/17 05:30 97.4 60 18 171/84 (113) 95 06/20/17 03:48 72 06/20/17 02:46 97.9 77 20 141/77 95 06/20/17 02:30 98.9 73 20 148/78 95 06/20/17 00:41 98.1 69 18 162/77 (105) 95 06/20/17 00:00 69 06/19/17 23:35 98.7 72 18 165/79 94 06/19/17 23:16 98.2 68 20 160/76 95 06/19/17 23:00 Nasal Cannula 4.00 Humidified 06/19/17 21:05 97 Nasal Cannula 3.00 06/19/17 20:40 Nasal Cannula 4.00 06/19/17 20:26 98.5 68 20 164/80 (108) 97 06/19/17 20:25 Nasal Cannula 5.00 06/19/17 20:01 78 06/19/17 16:27 98.1 96 18 142/84 (103) 95 06/19/17 16:17 71 06/19/17 12:10 98.1 95 18 145/79 (101) 94 06/19/17 12:00 72 06/19/17 11:50 18 06/19/17 10:22 76 06/19/17 10:22 93 Nasal Cannula 5.00 06/19/17 08:36 98.1 84 19 144/79 (100) 93 06/19/17 07:23 94 Nasal Cannula 3.00 06/19/17 04:00 97.7 87 20 140/67 (91) 98 06/18/17 21:35 98.7 98 18 143/81 (101) 98 06/18/17 20:05 99 Nasal Cannula 3.00 06/18/17 20:00 99.3 94 20 141/78 (99) 96 06/18/17 20:00 94 06/18/17 19:00 98 Nasal Cannula 3.00 06/18/17 18:00 71 06/18/17 16:00 98.8 82 20 160/83 (108) 98 06/18/17 16:00 82 06/18/17 14:00 109 06/18/17 12:00 66 06/18/17 12:00 98.6 82 24 141/67 (91) 97 06/18/17 10:00 68 06/18/17 08:00 98.8 66 21 153/75 (101) 94 06/18/17 08:00 66 06/18/17 07:50 97 Nasal Cannula 3.00 06/18/17 07:00 93 Nasal Cannula 2.00 06/18/17 06:00 76 06/18/17 04:00 98.7 80 25 130/64 (86) 94 06/18/17 04:00 80 06/18/17 02:00 80 06/18/17 00:00 98.9 75 22 142/69 (93) 96 06/18/17 00:00 75 06/17/17 22:00 72 06/17/17 20:08 98 Nasal Cannula 3.00 12/2/17 20:00 99.1 75 20 142/76 (98) 97 06/17/17 20:00 75 06/17/17 19:00 97 Nasal Cannula 2.00 06/17/17 18:00 90 06/17/17 16:00 98.3 78 26 146/67 (93) 100 06/17/17 16:00 78 06/17/17 15:00 72 06/17/17 14:00 80 (Ricardo Tee) Physical Examination GENERAL: The patient is awake & alert. Her affect is essentially normal. She appears mildly uncomfortable due to her respiratory effort. MUSCULOSKELETAL: Moves upper extremities w/o any difficulty, moves left lower extremity w/mild difficulty, and only trace movement of the right foot. Mild TTP of left lower extremity. The RLE is flexed at the knee and the patient is unable to straighten it, today this practitioner is unable to whereas yesterday he was. NEUROLOGICAL: AAOx3. Speech clear & appropriate. Follows simple commands w/o difficulty. Decreased sensation to proximal right lower extremity, numbness below the knee. Otherwise sensation intact to light touch to the other extremities. Motor strength is 5/5 to BUE, 3+ to 4/5 to LLE, 2/5 to the right gastrocnemius, 1/5 to the right tibialis anterior & right extensor hallucis longus and 0/5 to the remainder of the right lower. (Ricardo Tee) Physical Examination The patient is alert, awake and oriented to time, place and person. Speech is fluent. Cranial nerve examination: pupils to be equal, round and reactive to light. Extra-ocular movements are intact. Facial motor and sensory function are normal and symmetrical. Gross hearing appears intact. Sternocleidomastoid and trapezius muscles are symmetrical. Other cranial nerves are intact. Neck is soft and supple with a good range of motion without pain. Follows simple commands w/o difficulty. Decreased sensation to proximal right lower extremity, numbness below the knee. Otherwise sensation intact to light touch to the other extremities. Motor strength is 5/5 to BUE, 3+ to 4/5 to LLE, 2/5 to the right gastrocnemius, 1/5 to the right tibialis anterior & right extensor hallucis longus and 0/5 to the remainder of the right lower. Cerebellar examination is not possible, very limited (Dae Morgan MD) Lab, Micro, Other Results Laboratory Tests Test 06/17/17 19:20 06/18/17 20:05 06/19/17 13:10 06/20/17 06:00 Potassium Level 3.1 MEQ/L 3.1 MEQ/L 3.2 MEQ/L 3.3 MEQ/L Phosphorus Level 1.8 MG/DL 3.1 MG/DL Magnesium Level 1.5 MG/DL 1.3 MG/DL White Blood Count 13.9 TH/MM3 13.0 TH/MM3 Red Blood Count 2.38 MIL/MM3 2.96 MIL/MM3 Hemoglobin 7.2 GM/DL 9.1 GM/DL Hematocrit 21.8 % 26.8 % Mean Corpuscular Volume 91.6 FL 90.5 FL Mean Corpuscular Hemoglobin 30.5 PG 30.7 PG Mean Corpuscular Hemoglobin Concent 33.3 % 34.0 % Red Cell Distribution Width 14.4 % 14.5 % Platelet Count 284 TH/MM3 263 TH/MM3 Mean Platelet Volume 9.6 FL 10.1 FL Neutrophils (%) (Auto) 82.6 % Lymphocytes (%) (Auto) 9.3 % Monocytes (%) (Auto) 7.8 % Eosinophils (%) (Auto) 0.2 % Basophils (%) (Auto) 0.1 % Neutrophils # (Auto) 11.5 TH/MM3 Lymphocytes # (Auto) 1.3 TH/MM3 Monocytes # (Auto) 1.1 TH/MM3 Eosinophils # (Auto) 0.0 TH/MM3 Basophils # (Auto) 0.0 TH/MM3 CBC Comment DIFF FINAL Differential Comment Blood Urea Nitrogen 9 MG/DL 9 MG/DL Creatinine 0.74 MG/DL 0.74 MG/DL Random Glucose 121 MG/DL 151 MG/DL Calcium Level 8.0 MG/DL 8.2 MG/DL Sodium Level 141 MEQ/L 141 MEQ/L Chloride Level 106 MEQ/L 106 MEQ/L Carbon Dioxide Level 26.7 MEQ/L 26.3 MEQ/L Anion Gap 8 MEQ/L 9 MEQ/L Estimat Glomerular Filtration Rate 82 ML/MIN 82 ML/MIN (Ricardo Tee) Medical Decision Making Impression and Plan Impression: 1. There is significant increase in the previously noted L3 compression fracture which previously was approximately 20% loss of height with 3 mm retropulsion on MRI of 02/18/2017, increased to approximately 50% central compression with approximately 6 mm retropulsed posterior superior vertebral margin and approximately 4 mm RAAD thecal sac to mention on MRI 06/14/2017 2. 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 Patient has recently undergone a thoracic laminectomy with probable exploration and approximate March 2017 at [facility]. 3. Sepsis. UTI 4. Diabetes 5. Hypertension 6. Arthritis 7. Acute renal failure superimposed on baseline chronic renal insufficiency. Patient continues to have right lower extremity weakness with some mild deficits to the left lower. Images reviewed by Dr Fishman and Dr Morgan who both feel that the L3 compression fracture does not account for the patient's motor and sensory deficits but are related to her thoracic syrinx. It is felt that the patient needs to be transferred to [facility] for admission to Neurosurgery there to evaluate and treat the patient due to her prior surgery at that facility in March of this year. 06/14/2017 thoracic and lumbar spine MRI images demonstrate extensive chronic changes in the thoracic spine consistent with syrinx formation as well as intramedullary and extramedullary fluid collections. Relatively stable compared to prior MRI imaging from February 2017 from [facility] as well as previous MRI images from [facility]. There is however significant increase in the previously noted L3 compression fracture which previously was approximately 20% loss of height with 3 mm retropulsion on MRI of 02/18/2017, increased to approximately 50% central compression with approximately 6 mm retropulsed posterior superior vertebral margin and approximately 4 mm RAAD thecal sac to mention on MRI 06/14/2017. Plan: Discussed plan of care with patient. Discussed plan of care with the Hospitalist. Primary management per Hospitalist. Mobilise patient with assistance. Physical and Occupational Therapy. Recommend that the patient be transferred to [facility] for admission by NSGY for further evaluation and work-up of her syrinx and probable associated lower extremity deficits when medically indicated given her prior surgery to the thoracic spine at that facility in 2016. NSGY will therefore sign off at this time since there is no indication for surgical intervention for the L3 compression fracture. If we may be of further service please consult the service as needed. Thank you for allowing us to participate in your patient's care. (Finney,Ricardo E. COMMUTATOR OPERATOR) Attending Statement Continue neuro checks. Will send back to dr Rangel who did her prior surgery Pulmonary.. Continue aggressive pulmonary toilette, nasotracheal suction, and breathing treatments with nebulizers. Nutrition. NPO Renal. monitor closely urine output, BUN and creatinine Endocrine. Monitor serial Acu checks and SSI as needed in detail ID monitor for signs of infection Protonix for stress ulcer prophylaxis Abdirizak hose and SCD's for DVT prophylaxis. The exam, history, and the medical decision-making described in the above note were completed with the assistance of the mid-level provider. I reviewed and agree with the findings presented. I attest that I had a [id number] encounter with the patient on the same day, and personally performed and documented my assessment and findings in the medical record. (Dae Morgan MD) Ricardo Tee Jun 20, 2017 13:27 Dae Morgan MD Jun 21, 2017 20:17
[2017-06-20] MEDS: oxyCODONE/ACETAMINOPHEN 10 MG/325 MG TAB PO PRN ×2 (14:09→18:18)
[2017-06-20] MEDS ORDERED: LISINOPRIL 20 MG TAB PO ONE (17:15)
[2017-06-20] MEDS ORDERED: LEVA750T9 PO (17:16)
[2017-06-20] MEDS ORDERED: OXYC1TAB36 PO (17:16)
[2017-06-20] MEDS ORDERED: PANT40TA3 PO (17:16)
--- NOTE | 2017-06-20 17:18 | HHI.DS ---
Discharge Summary Admission Date Jun 14, 2017 at 11:54 Discharge Date: Jun 20, 2017 Admitting Diagnosis Severe sepsis/UTI/encephalopathy/ARF/hyperkalemia Acute on chronic back pain (1) Acute respiratory failure ICD Code: J96.00 - Acute respiratory failure, unspecified whether with hypoxia or hypercapnia Diagnosis: Principal (2) Acute encephalopathy ICD Code: G93.40 - Encephalopathy, unspecified Diagnosis: Principal Status: Resolved (3) Septic shock ICD Code: A41.9 - Sepsis, unspecified organism; R65.21 - Severe sepsis with septic shock Diagnosis: Principal (4) Acute renal failure ICD Code: N17.9 - Acute kidney failure, unspecified Diagnosis: Principal Status: Acute (5) Hyperkalemia ICD Code: E87.5 - Hyperkalemia Diagnosis: Principal Status: Acute (6) Metabolic acidosis ICD Code: E87.2 - Acidosis Diagnosis: Principal Status: Resolved (7) Hypoglycemia ICD Code: E16.2 - Hypoglycemia, unspecified Diagnosis: Principal (8) UTI (urinary tract infection) ICD Code: N39.0 - Urinary tract infection, site not specified Diagnosis: Principal Status: Acute (9) Acute exacerbation of chronic low back pain ICD Code: M54.5 - Low back pain; G89.29 - Other chronic pain Diagnosis: Principal Status: Acute (10) Diabetes mellitus, type 2 ICD Code: E11.9 - Type 2 diabetes mellitus without complications Diagnosis: Secondary Status: Chronic (11) Compression fracture of L3 lumbar vertebra ICD Code: S32.030A - Wedge compression fracture of third lumbar vertebra, initial encounter for closed fracture Diagnosis: Secondary Status: Acute (12) Syrinx of spinal cord ICD Code: G95.0 - Syringomyelia and syringobulbia Procedures Intubation and extubation Brief History - From Admission Patient is a 56-year-old female who initially presented to the emergency room with complaint of intractable back pain. Patient has a history of surgery for her back due to syrinx back in March. She states her pain has never improved since the surgery. According to the ER physician, on presentation the patient was encephalopathic. She admitted to the nursing staff she took Dilaudid the day prior. Patient was found to be in severe sepsis and metabolic acidosis. Her mental status decline in the emergency room, therefore she was intubated and admitted to the critical care service. CBC/BMP: 06/20/17 0600 06/20/17 0600 Significant Findings Laboratory Tests Test 06/17/17 19:20 06/18/17 20:05 06/19/17 13:10 06/20/17 06:00 Potassium Level 3.1 MEQ/L (3.5-5.1) 3.1 MEQ/L (3.5-5.1) 3.2 MEQ/L (3.5-5.1) 3.3 MEQ/L (3.5-5.1) Phosphorus Level 1.8 MG/DL (2.5-4.9) Magnesium Level 1.3 MG/DL (1.5-2.5) White Blood Count 13.9 TH/MM3 (4.0-11.0) 13.0 TH/MM3 (4.0-11.0) Red Blood Count 2.38 MIL/MM3 (4.00-5.30) 2.96 MIL/MM3 (4.00-5.30) Hemoglobin 7.2 GM/DL (11.6-15.3) 9.1 GM/DL (11.6-15.3) Hematocrit 21.8 % (35.0-46.0) 26.8 % (35.0-46.0) Neutrophils (%) (Auto) 82.6 % (16.0-70.0) Neutrophils # (Auto) 11.5 TH/MM3 (1.8-7.7) Monocytes # (Auto) 1.1 TH/MM3 (0-0.9) Random Glucose 121 MG/DL (74-106) 151 MG/DL (74-106) Calcium Level 8.0 MG/DL (8.5-10.1) 8.2 MG/DL (8.5-10.1) Estimat Glomerular Filtration Rate 82 ML/MIN (>89) 82 ML/MIN (>89) Imaging Last Impressions Chest X-Ray 06/17/17 0000 Signed Impressions: Service Date/Time: Saturday, June 17, 2017 02:31 - CONCLUSION: Increased bilateral lower lung zone airspace consolidation with likely left pleural effusion. Ze Torres MD Head CT 11/29/17 1137 Signed Impressions: Service Date/Time: Wednesday, June 14, 2017 13:57 - CONCLUSION: Normal examination. Allan Joyce Jr., MD Thoracic Spine MRI 06/14/17 1034 Signed Impressions: Service Date/Time: Wednesday, June 14, 2017 14:21 - CONCLUSION: Interval decompressive surgery in the mid thoracic region. Stable appearance of chronic cord deformity and syrinx formation. No other definite acute findings. Ze Crocker MD Lumbar Spine MRI 06/14/17 1034 Signed Impressions: Service Date/Time: Wednesday, June 14, 2017 14:21 - CONCLUSION: 1. Worsening compression fracture involving the L3 vertebral body. There is now 50%% loss of height in L5 millimeters of retropulsion of the posterior cortical margin with resulting central canal stenosis. 2. Linear edema paralleling the L5 inferior endplate without appreciable loss of height. This likely relates to an occult compression deformity. 3. Multilevel degenerative changes as detailed above. Allan Joyce Jr., MD Renal Ultrasound 06/14/17 0000 Signed Impressions: Service Date/Time: Wednesday, June 14, 2017 16:32 - CONCLUSION: No evidence of hydronephrosis Ze Crocker MD PE at Discharge GENERAL: Patient appearing older than stated age. Some tachypnea. CARDIOVASCULAR: Normal rate and regular rhythm without murmurs, gallops, or rubs. RESPIRATORY: Tachypneic, diffuse end expiratory wheezing throughout. GASTROINTESTINAL: Abdomen soft, non-tender, non-distended. Normal active bowel sounds MUSCULOSKELETAL: Appear to have some right knee contracture. NEURO: Alert & Oriented x4 to person, place, time, situation. Generalized weakness. PSYCH: Appropriate mood and affect. Transfer Summary See Hospital course. Pt update on day of discharge Patient reports she is better from a respiratory standpoint. She continues to complain of persistent back pain. She admits that the lower extremity weakness is getting worse. Hospital Course 56-year-old female with multiple comorbid conditions including diabetes, hypertension, history of chronic back pain and syrinx surgery who presented to the hospital for worsening back pain. Patient was found to be severe sepsis, encephalopathic, in acute renal failure. Imaging revealed worsening lumbar compression fracture. Patient required intubation and pressors. She was admitted to the ICU. The patient was treated for septic shock. Sepsis was due to Klebsiella pneumonia UTI and pneumonia. The patient's respiratory status improved and she was subsequently extubated. The patient did have worsening of chronic anemia and required PRBC transfusion. There were no source of active bleeding. The patient's acute renal failure resolved after aggressive IV fluid hydration. Regarding the worsening L3 compression fracture. The patient's lower extremity weakness symptoms were not improving. She was evaluated by neurosurgery who did not believe the lower extremity deficits were associated with the compression fracture. Neurosurgery here recommended the patient be transferred to [facility] for admission by the patient's initial neurosurgeon for further evaluation and workup of her syrinx and probable associated lower extremity deficits. The patient is medically stable and is sclera for discharge to [facility] for further workup of the neurosurgical issues by her Neurosurgeon. Case management made aware to initiate transfer. Pt Condition on Discharge: Stable Discharge Disposition: Trnsfr to Other Facility Discharge Time: > 30 minutes Discharge Instructions DIET: Follow Instructions for: Heart Healthy Diet Activities you can perform: Continue Bedrest Other Activity Instructions: Out of bed with assistance only. New Medications: Levofloxacin (Levaquin) 750 Mg Tablet 750 MG PO DAILY, #10 TAB Oxycodone HCl/Acetaminophen (Oxycodone-Acetaminophen 10-325) 10 Mg-325 Mg Tablet 1 TAB PO Q4H PRN for severe pain, #15 TAB Pantoprazole (Pantoprazole) 40 Mg Tab 40 MG PO DAILY, #30 TAB Continued Medications: Bupropion HCl ER 24 HR (Wellbutrin Xl 24 HR) 150 Mg Tab 150 MG PO DAILY for Control Depression, TAB 0 Refills Gemfibrozil (Gemfibrozil) 600 Mg Tab 600 MG PO BIDAC, #60 TAB 3 Refills Take 30 minutes prior to breakfast and dinner. Hydrochlorothiazide (Hydrochlorothiazide) 25 Mg Tab 25 MG PO DAILY, #30 TAB 3 Refills Lisinopril (Lisinopril) 20 Mg Tab 20 MG PO DAILY for Blood Pressure Management, #90 TAB 3 Refills Lovastatin (Lovastatin) 40 Mg Tab 40 MG PO DAILY for Cholesterol Management, #30 TAB 2 Refills Metformin (Metformin) 500 Mg Tab 500 MG PO BID for Blood Sugar Management, #60 TAB 0 Refills Sertraline (Zoloft) 100 Mg Tab 200 MG PO DAILY, #30 TAB 0 Refills Discontinued Medications: Clindamycin (Clindamycin) 150 Mg Cap 450 MG PO Q6H for Infection for 10 Days, #120 CAP 0 Refills Gabapentin (Gabapentin) 600 Mg Tab 600 MG PO TID, #90 TAB 4 Refills Ibuprofen (Ibuprofen) 800 Mg Tab 800 MG PO Q8H PRN for PAIN SCALE 4 TO 10, #90 TAB 3 Refills Methocarbamol (Robaxin) 500 Mg Tab 500 MG PO QID PRN for MUSCLE SPASM, TAB 0 Refills Quetiapine (Seroquel) 50 Mg Tab 50 MG PO HS, #30 TAB 0 Refills Trazodone (Trazodone) 150 Mg Tablet 150 MG PO HS for Control Depression, #30 TAB 0 Refills Michael Hughes MD Jun 20, 2017 17:18
[2017-06-20] MEDS ORDERED: PRED5PAK PO (17:19)
[2017-06-21] MEDS ORDERED: LISINOPRIL 20 MG TAB PO SCH (09:00)
[2017-06-21] MEDS ORDERED: LEVOFLOXACIN 750 MG TAB PO SCH (09:00)
== END 2017-06-20 21:56 | disposition short-term general hospital (02) | DRG 871 ==
LOC: NEPD 10:07 → NEDA 11:54 → HIMN 15:28 → N05A 06-18 22:34
PROVIDERS: ADMIT Hospitalist; ATTEND Hospitalist
PROC: 0BH17EZ Insertion of Endotracheal Airway into Trachea, Via Natural or Artificial Opening (ICD-10-PCS; principal; 2017-06-14)
PROC: 5A1945Z Respiratory Ventilation, 24-96 Consecutive Hours (ICD-10-PCS; 2017-06-14)
PROC: 5A09357 Assistance with Respiratory Ventilation, Less than 24 Consecutive Hours, Continuous Positive Airway Pressure (ICD-10-PCS; 2017-06-17)
PROC: 30233N1 Transfusion of Nonautologous Red Blood Cells into Peripheral Vein, Percutaneous Approach (ICD-10-PCS; 2017-06-19)
DX: A41.9 Sepsis, unspecified organism (principal); J96.01 Acute respiratory failure with hypoxia; R65.21 Severe sepsis with septic shock; G93.41 Metabolic encephalopathy; N17.9 Acute kidney failure, unspecified; N39.0 Urinary tract infection, site not specified; E87.2 Acidosis; G95.0 Syringomyelia and syringobulbia; N18.3 Chronic kidney disease, stage 3 (moderate); E11.22 Type 2 diabetes mellitus with diabetic chronic kidney disease; E87.5 Hyperkalemia; E03.9 Hypothyroidism, unspecified; G89.29 Other chronic pain; M54.5 Low back pain; I12.9 Hypertensive chronic kidney disease with stage 1 through stage 4 chronic kidney disease, or unspecified chronic kidney disease; F17.210 Nicotine dependence, cigarettes, uncomplicated; F41.9 Anxiety disorder, unspecified; R00.0 Tachycardia, unspecified; E11.649 Type 2 diabetes mellitus with hypoglycemia without coma; E78.5 Hyperlipidemia, unspecified; J44.9 Chronic obstructive pulmonary disease, unspecified; F32.9 Major depressive disorder, single episode, unspecified; E83.51 Hypocalcemia; M06.9 Rheumatoid arthritis, unspecified; B19.20 Unspecified viral hepatitis C without hepatic coma; B96.1 Klebsiella pneumoniae [K. pneumoniae] as the cause of diseases classified elsewhere; D64.9 Anemia, unspecified; E83.42 Hypomagnesemia; E86.0 Dehydration; E87.6 Hypokalemia; E87.70 Fluid overload, unspecified; M17.11 Unilateral primary osteoarthritis, right knee; S80.211A Abrasion, right knee, initial encounter; Z86.61 Personal history of infections of the central nervous system; Z91.81 History of falling; Z79.84 Long term (current) use of oral hypoglycemic drugs; S32.030D Wedge compression fracture of third lumbar vertebra, subsequent encounter for fracture with routine healing; Z23 Encounter for immunization
CPT/HCPCS: 31500; 36430; 36600; 70450; 71010; 72146; 72148; 76775; 76937; 80048; 80053; 80307; 81001; 82140; 82272; 82607; 82805; 83605; 83690; 83735; 84100; 84132; 84443; 85025; 85027; 86850; 86900; 86901; 86920; 87040; 87070; 87077; 87086; 87186; 87205; 87449; 87641; 93306; 94002; 94003; 94150; 94640; 94664; 96374; 96375; C9113; J0360; J0456; J0610; J1170; J1644; J1815; J1940; J2060; J2250; J2270; J2543; J3370; J3475; J7030; J7050; J7070; J7512; J7613; P9016